=== PATIENT | male | born 1955 | race Caucasian/White ===

== ENCOUNTER 2020-05-26 07:37 | Emergency (ER) | payer MEDICARE, MEDICAID, SELFPAY ==
--- NOTE | ~2020-05-26 | CT_ITS ---
EXAMINATION: CT ABDOMEN AND PELVIS WITHOUT CONTRAST CLINICAL INFORMATION: Abdominal pain with black tarry stools COMPARISON: None TECHNIQUE: Multidetector volumetric imaging was performed from the superior aspect of the liver through the pubic symphysis. Sagittal and coronal reformatted images were obtained on the technologist's workstation. This CT examination was performed using dose optimization techniques as appropriate, variously including the following: *Automated exposure control *Adjustment of mA and/or kV according to patient size (this includes techniques or standardized protocols for targeted exams where dose is matched to indication/reason for exam; i.e. extremities or head) *Use of iterative reconstruction technique DLP: 596 mGy-cm FINDINGS: LUNG BASES: There are bilateral patchy regions of groundglass opacity consistent with pneumonitis. Covid 19 not excluded. No pleural effusion. No pericardial effusion. LIVER, GALLBLADDER, AND BILIARY TREE: There is a 1.4 cm segment 6 hepatic cyst present. No intrahepatic bile duct dilatation. The gallbladder is unremarkable with no evidence of radiopaque gallstones, gallbladder wall thickening, or obvious pericholecystic inflammatory changes. PANCREAS: Unremarkable. SPLEEN: Unremarkable. ADRENAL GLANDS: Unremarkable. KIDNEYS AND URETERS: The kidneys are normal in size, shape, and attenuation. No hydronephrosis, hydroureter, or calculi seen. There is bilateral perinephric stranding. BLADDER: Unremarkable. GASTROINTESTINAL TRACT: No dilated loops of large or small bowel are evident. No free air or free fluid. There is a small hiatal hernia. No pericolonic inflammatory change to suggest colitis. No evidence of acute appendicitis. ABDOMINAL WALL: There is a fat-containing right inguinal hernia. LYMPH NODES: No lymphadenopathy appreciated. VASCULAR: Unremarkable. PELVIC VISCERA: Within the left pelvis there is a 1.1 x 0.9 cm density which appears to have a combination of fat and calcification which could represent a lymph node. It would be very unusual to represent a dermoid tumor in a male. OSSEOUS STRUCTURES: No suspicious destructive bony lesions identified. CT/CT abdomen pelvis wo con IMPRESSION: Bilateral lung base scattered regions of groundglass opacity consistent with pneumonitis. Covid 19 and not excluded. No evidence of ileus or obstruction. No evidence of colitis.
--- NOTE | ~2020-05-26 | XR_ITS ---
EXAMINATION: XR CHEST CLINICAL INFORMATION: Shortness of breath and cough COMPARISON: November 12, 2016 TECHNIQUE: AP portable chest view of the chest was obtained. FINDINGS: There are some bilateral scattered patchy regions of disease present most prominent at the lung bases but also within the right upper lobe. No pneumothorax or pleural effusion. Heart normal size. No evidence of pulmonary edema. XR/XR chest 1V IMPRESSION: Bilateral scattered regions of disease. Findings could relate to atelectasis but more likely pneumonitis.
[2020-05-26 07:51] VITALS: BP 127/78; PULSE 110; RESP 19; TEMP 37; O2SAT 96; BMI 30.9
--- NOTE | 2020-05-26 08:30 | ED_ITS ---
HPI - General Adult General Chief complaint: General Medical Stated complaint: sob Time Seen by Provider: 05/26/20 08:25 Source: patient Mode of arrival: ambulatory Limitations: no limitations History of Present Illness HPI narrative: 64-year-old male came in for evaluation of black stool and generalized weakness. This is a 64-year-old male his symptoms started about week ago with generalized weakness, generalized body ache, coughing, shortness of breath, then symptoms started to improve gradually by taking NSAIDs at home, patient after that started to have nausea, patient also noted to have a black stool bowel movement this morning. Complaining of a mild abdominal discomfort. Patient declined exposure to a sick contact or recent travel Related Data Home Medications Medication Instructions Recorded Confirmed atorvastatin 1 tab PO DAILY 05/26/20 05/26/20 carvedilol 1 tab PO BID 05/26/20 05/26/20 cetirizine 1 tab PO DAILY PRN 05/26/20 05/26/20 gabapentin 1 cap PO BID 05/26/20 05/26/20 Allergies Allergy/AdvReac Type Severity Reaction Status Date / Time No Known Allergies Allergy Verified 05/26/20 07:42 [No Known Allergies*] Review of Systems Review of Systems: All other systems are reviewed and are negative Constitutional: Reports as per HPI and Reports no additional constitutional complaints Eyes: Reports as per HPI and Reports no additional eye complaints Reports system reviewed and no additional complaints, except as documented Cardiovascular: Reports as per HPI and Reports no additional cardiovascular complaints Respiratory: Reports as per HPI and Reports no additional respiratory complaints Gastrointestinal: Reports as per HPI and Reports no additional gastrointestinal complaints Genitourinary: Reports no additional female genitourinary complaints Musculoskeletal: Reports no additional musculoskeletal complaints Skin/Breast: Reports system reviewed and no additional complaints, except as docu Psychiatric: Reports no additional psychiatric complaints Endocrine: Reports no additional endocrine complaints Hematologic/Lymphatic: Reports no additional hematologic/lymphatic complaints Allergic/Immunologic: Reports no additional allergic/immunologic complaints Reports system reviewed and no additional complaints, except as documented and Reports Abnormal speech present [facility] Past Medical History Medical History HTN (hypertension) Myocardial infarct Social History Social History Advance Directives: No Advance Directives Information Provided: Yes Physical Exam Vital Signs: Vital Signs: Last Vital Signs Temp 98.6 F 05/26/20 07:51 Pulse 96 05/26/20 09:37 Resp 15 05/26/20 09:37 BP 121/70 05/26/20 09:37 Pulse Ox 97 05/26/20 09:37 Body Mass Index 30.9 Vital signs have been reviewed as appeared to be correct. Blood pressure normal. Heart rate elevated. Respiration rate normal. Temperature normal. Oxygen saturation normal. Appearance: Alert. Oriented X3. No acute distress. Head: Normal external exam. Normocephalic. Atraumatic. No Monae signs noted. No raccoon eyes noted Eyes: PERRLA. EOMI. Conjunctiva and sclera normal. Eyelids normal. ENT: TM's Normal. Pharynx normal. Uvula midline. Dry mucous membranes. No trismus noted. No drooling noted. No muffled voice noted. Neck: Normal inspection. Neck supple. FROM. No adenopathy. Thyroid Normal. No meningeal signs. No neck mass noted. CVS: Normal heart rate and rhythm. Heart sound normal. No murmurs noted. Pulses normal throughout. Respiratory: No respiratory distress. Painless inspiration. Breath sounds normal. No wheezes/rales/rhonchi noted. Chest nontender. No accessory muscle usage noted or decreased air movement noted. Abdomen: Soft and nontender. Bowel sounds normal in all 4 quadrants. No distention noted. No organomegaly noted. No visible injury noted. Rectal exam: Good tone, no mass, no hemorrhoid, light dark stool no obvious bleed or blood clots guaiac negative. Back: No CVA tenderness. Full range of motion noted. Skin: Skin warm and dry. Normal skin color. Normal skin turgor. No rashes/lesions/lacerations noted. Extremities: No lower extremity edema. Extremities exhibit normal range of motion. Extremities nontender. Neuro: Oriented X 3. No motor deficit. No sensory deficit. Reflexes normal. Course Course Course Narrative: Assessment and plan. 64-year-old male came in for evaluation of generalized body ache and dark color stool. Patient tested positive for COVID which will explain patient's symptoms of dehydration. Patient received IV fluids hydration and felt better, patient will now with better appetite was able to tolerate p.o. intake. Will discharge to follow-up with PCP. Medical Decision Making Lab Data Lab results reviewed: Yes I reviewed the patient's lab results. Result diagrams: 05/26/20 08:58 05/26/20 08:57 Labs: Lab Results 05/26/20 05/26/20 05/26/20 Range/Units 08:57 08:57 08:57 WBC (4.8-10.8) X10*3/uL RBC (4.60-5.80) X10*6/uL Hgb (14.0-18.0) g/dl Hct (42-52) % MCV (80-98) fL MCH (27.0-33.0) pg MCHC (31.0-36.0) g/dl RDW (11.0-16.0) % Plt Count (160-400) X10*3/uL MPV (9.4-12.4) fL Immature Gran % (Auto) (0.0-0.4) % Neut % (Auto) (45-73) % Lymph % (Auto) (20-40) % [place] % (Auto) (2-11) % Eos % (Auto) (0-4) % Baso % (Auto) (0-2) % Lymph # (Auto) (1.2-4.9) X10*3/uL [place] # (Auto) (0.1-1.2) X10*3/uL Eos # (Auto) (0.0-0.4) X10*3/uL Baso # (Auto) (0.0-0.2) X10*3/uL Abs Immat Gran (auto) (0.00-0.03) X10*3/uL Absolute Neuts (auto) (2.0-8.3) X10*3/uL Absolute Nucleated RBC (0.0-0.012) X10*3/uL Nucleated RBC % (auto) (0.0-0.2) /100WBC Sodium 137 (135-145) mmol/L Potassium 3.8 (3.3-5.1) mmol/L Chloride 102 (96-108) mmol/L Carbon Dioxide 24 (22-29) mmol/L Anion Gap 15 (12-20) BUN 22 H (9-16) mg/dL Creatinine 1.13 (0.5-1.4) mg/dL Estim Creat Clear Calc 76.5 Estimated GFR > 60 Random Glucose 86 (60-115) mg/dL Calcium 8.0 L (8.4-10.2) mg/dL Total Bilirubin 0.9 (0.0-1.0) mg/dL Direct Bilirubin 0.4 (0.0-0.5) mg/dL AST 55 H (5-37) U/L ALT 59 H (0-40) U/L Alkaline Phosphatase 40 (39-117) U/L Troponin I High Sens 5.9 (<3.5-35.0) ng/L B-Natriuretic Peptide < 10 (<100) pg/mL Total Protein 6.3 L (6.5-8.0) g/dL Albumin 3.8 (3.5-5.0) g/dL Lipase 27 (8-78) U/L Stool Occult Blood (NEGATIVE) COVID-19 ([facility]) (Negative) COVID-19 Clin Com 05/26/20 05/26/20 05/26/20 Range/Units 08:58 08:59 09:03 WBC 3.7 L (4.8-10.8) X10*3/uL RBC 4.65 (4.60-5.80) X10*6/uL Hgb 14.8 (14.0-18.0) g/dl Hct 43.0 (42-52) % MCV 92.5 (80-98) fL MCH 31.8 (27.0-33.0) pg MCHC 34.4 (31.0-36.0) g/dl RDW 12.5 (11.0-16.0) % Plt Count 170 (160-400) X10*3/uL MPV 10.8 (9.4-12.4) fL Immature Gran % (Auto) 0.5 H (0.0-0.4) % Neut % (Auto) 72.4 (45-73) % Lymph % (Auto) 19.5 L (20-40) % [place] % (Auto) 7.0 (2-11) % Eos % (Auto) 0.3 (0-4) % Baso % (Auto) 0.3 (0-2) % Lymph # (Auto) 0.7 L (1.2-4.9) X10*3/uL [place] # (Auto) 0.3 (0.1-1.2) X10*3/uL Eos # (Auto) 0.0 (0.0-0.4) X10*3/uL Baso # (Auto) 0.0 (0.0-0.2) X10*3/uL Abs Immat Gran (auto) 0.02 (0.00-0.03) X10*3/uL Absolute Neuts (auto) 2.7 (2.0-8.3) X10*3/uL Absolute Nucleated RBC 0.000 (0.0-0.012) X10*3/uL Nucleated RBC % (auto) 0.0 (0.0-0.2) /100WBC Sodium (135-145) mmol/L Potassium (3.3-5.1) mmol/L Chloride (96-108) mmol/L Carbon Dioxide (22-29) mmol/L Anion Gap (12-20) BUN (9-16) mg/dL Creatinine (0.5-1.4) mg/dL Estim Creat Clear Calc Estimated GFR Random Glucose (60-115) mg/dL Calcium (8.4-10.2) mg/dL Total Bilirubin (0.0-1.0) mg/dL Direct Bilirubin (0.0-0.5) mg/dL AST (5-37) U/L ALT (0-40) U/L Alkaline Phosphatase (39-117) U/L Troponin I High Sens (<3.5-35.0) ng/L B-Natriuretic Peptide (<100) pg/mL Total Protein (6.5-8.0) g/dL Albumin (3.5-5.0) g/dL Lipase (8-78) U/L Stool Occult Blood NEGATIVE (NEGATIVE) COVID-19 ([facility]) Positive A (Negative) COVID-19 Clin Com See Note Imaging Data CT of the abdomen and pelvis: Radiologist's impression: Bilateral lung base scattered regions of groundglass opacity consistent with pneumonitis. Covid 19 and not excluded. No evidence of ileus or obstruction. No evidence of colitis. Chest x-ray: Radiologist's impression: Bilateral scattered regions of disease. Findings could relate to atelectasis but more likely pneumonitis. ECG Data Interpretation: Sinus tachycardia at 102, normal axis, normal intervals, no ST-T changes. Discharge Plan Discharge Clinical Impression: Advice given about COVID-19 virus infection, Dehydration Patient Disposition: Home, Self-Care Instructions: Dehydration (ED), COVID-19 (Coronavirus Disease 2019) (ED) Prescriptions: No Action atorvastatin 40 mg tablet 1 tab PO DAILY RF: 0 cetirizine 10 mg tablet 1 tab PO DAILY PRN (Reason: allergies) RF: 0 carvedilol 3.125 mg tablet 1 tab PO BID RF: 0 gabapentin 300 mg capsule 1 cap PO BID RF: 0 Referrals: Mihaela Freedman MD [Primary Care Provider] - 2 days
--- NOTE | 2020-05-26 08:45 | ECG_ITS ---
Test Reason : CHEST PAIN Blood Pressure : / mmHG Vent. Rate : 102 BPM Atrial Rate : 102 BPM P-R Int : 162 ms QRS Dur : 084 ms QT Int : 352 ms P-R-T Axes : 056 015 026 degrees QTc Int : 458 ms Sinus tachycardia Otherwise normal ECG When compared with ECG of 12-NOV-2016 04:48, No significant change was found Referred By: Rito Terrell Electronically Signed By:Lev Montano
[2020-05-26] MEDS: Pantoprazole Sodium 40 MG/10 ML VIAL IVPUSH (09:05)
[2020-05-26] MEDS: ondansetron HCL 4 MG/2 ML VIAL IVPUSH (09:05)
[2020-05-26] MEDS: 0.9 % Sodium Chloride 1,000 ML 999 ML IVCONT ×2 (09:05→09:50)
[2020-05-26 09:11] LABS: MANUAL DIFF FLAG NO
[2020-05-26 09:12] LABS: Basophils Percent Auto 0.3 % (0-2); Eosinophils Percent Auto 0.3 % (0-4); Hemoglobin 14.8 g/dl (14.0-18.0); Imm Gran Abs Auto 0.02 X10*3/uL (0.00-0.03); Imm Gran Pct Auto 0.5 % (0.0-0.4); Lymphocytes Absolute Auto 0.7 X10*3/uL (1.2-4.9); Lymphocytes Percent Auto 19.5 % (20-40); Mean Corpuscular HGB Conc 34.4 g/dl (31.0-36.0); Mean Corpuscular Hemoglobin 31.8 pg (27.0-33.0); Mean Corpuscular Volume 92.5 fL (80-98); Mean Platelet Volume 10.8 fL (9.4-12.4); Monocytes Absolute Auto 0.3 X10*3/uL (0.1-1.2); Neutrophils Absolute Auto 2.7 X10*3/uL (2.0-8.3); Neutrophils Percent Auto 72.4 % (45-73); Platelet Count 170 X10*3/uL (160-400); Red Blood Count 4.65 X10*6/uL (4.60-5.80); Red Cell Distribution Width 12.5 % (11.0-16.0); White Blood Count 3.7 X10*3/uL (4.8-10.8)
[2020-05-26 09:13] LABS: OBS Int Ctl Valid YES; OBS1 NEGATIVE (NEGATIVE)
[2020-05-26 09:25] LABS: COVID-19 Test Positive (Negative); IDNOW Serial# 9DD0AD1C
[2020-05-26 09:37] VITALS: BP 121/70; PULSE 96; RESP 15; O2SAT 97
[2020-05-26 09:40] LABS: Anion Gap 15 (12-20); Blood Urea Nitrogen 22 mg/dL (9-16); Carbon Dioxide 24 mmol/L (22-29); Chloride 102 mmol/L (96-108); Creatinine Clr Calc Pharmacy 76.5; Estimated Glomerular Filt Rate > 60; Glucose Random 86 mg/dL (60-115); Potassium 3.8 mmol/L (3.3-5.1); Sodium 137 mmol/L (135-145)
[2020-05-26 09:42] LABS: Alanine Aminotransferase 59 U/L (0-40); Albumin Level 3.8 g/dL (3.5-5.0); Alkaline Phosphatase 40 U/L (39-117); Aspartate Amino Transferase 55 U/L (5-37); Bilirubin Direct 0.4 mg/dL (0.0-0.5); Bilirubin Total 0.9 mg/dL (0.0-1.0); Lipase 27 U/L (8-78); Total Protein 6.3 g/dL (6.5-8.0)
[2020-05-26 09:49] LABS: Troponin-I High Sensitivity 5.9 ng/L (<3.5-35.0)
[2020-05-26 09:54] LABS: B Type Natriuretic Peptide < 10 pg/mL (<100)
[2020-05-26 12:24] VITALS: BP 113/63; PULSE 103; RESP 12
--- NOTE | 2020-05-26 12:41 | PC.NURSE ---
pt tolerating po. no issues, reports general malaise. instructed on how to care for self at home.
== END 2020-05-26 12:42 | disposition home or self-care (01) ==
PROVIDERS: Emergency Provider Emergency Medicine; PCP Family Medicine
DX: U07.1 COVID-19 (principal); E86.0 Dehydration; R06.02 Shortness of breath; M79.10 Myalgia, unspecified site; I10 Essential (primary) hypertension; Z79.899 Other long term (current) drug therapy
CPT/HCPCS: 36415; 71045; 74176; 80048; 80076; 82272; 83690; 83880; 84484; 85025; 87635; 93005; 96365; 96375; 99284; J2405

== ENCOUNTER 2020-06-14 10:27 | Outpatient (REF) | payer SELFPAY | END 2020-06-14 10:28 | disposition home or self-care (01) | LOC: HO.MMNH1L 10:27 | PROVIDERS: Visit Provider Family Medicine | DX: Z13.89 Encounter for screening for other disorder (principal) ==

== ENCOUNTER 2022-05-09 10:06 | Outpatient (REF) | payer MEDICARE, MEDICAID, SELFPAY ==
[2022-05-09 10:16] LABS: MANUAL DIFF FLAG NO
[2022-05-09 10:54] LABS: Basophils Absolute Auto 0.1 X10*3/uL (0.0-0.2); Basophils Percent Auto 0.9 % (0-2); Eosinophils Absolute Auto 0.4 X10*3/uL (0.0-0.4); Eosinophils Percent Auto 5.3 % (0-4); Hematocrit 48.5 % (42.0-52.0); Hemoglobin 16.6 g/dl (14.0-18.0); Imm Gran Abs Auto 0.03 X10*3/uL (0.00-0.03); Imm Gran Pct Auto 0.4 % (0.0-0.4); Lymphocytes Absolute Auto 2.4 X10*3/uL (1.2-4.9); Lymphocytes Percent Auto 32.1 % (20-40); Mean Corpuscular HGB Conc 34.2 g/dl (31.0-36.0); Mean Corpuscular Hemoglobin 32.9 pg (27.0-33.0); Mean Platelet Volume 11.2 fL (9.4-12.4); Monocytes Absolute Auto 0.7 X10*3/uL (0.1-1.2); Monocytes Percent Auto 9.6 % (2-11); Neutrophils Absolute Auto 3.9 x10*3/uL (2.0-8.3); Neutrophils Percent Auto 51.7 % (45-73); Platelet Count 246 X10*3/uL (160-400); Red Blood Count 5.05 X10*6/uL (4.60-5.80); Red Cell Distribution Width 12.2 % (11.0-16.0); White Blood Count 7.6 X10*3/uL (4.8-10.8)
[2022-05-09 11:18] LABS: Alanine Aminotransferase 34 U/L (0-40); Albumin Level 4.2 g/dL (3.5-5.0); Alkaline Phosphatase 63 U/L (39-117); Anion Gap 14 (12-20); Aspartate Amino Transferase 23 U/L (5-37); Blood Urea Nitrogen 12 mg/dL (9-16); Calcium 9.2 mg/dL (8.4-10.2); Carbon Dioxide 26 mmol/L (22-29); Chloride 107 mmol/L (96-108); Cholesterol 152 mg/dL; Estimated Glomerular Filt Rate 58; Glucose Random 93 mg/dL (60-115); HDL Cholesterol 40 mg/dL; LDL Cholesterol Calculated 81 mg/dl; Potassium 4.7 mmol/L (3.3-5.1); Sodium 142 mmol/L (135-145); Total Protein 6.6 g/dL (6.5-8.0); Triglycerides 157 mg/dL
[2022-05-09 11:34] LABS: PSA,Total (Free>4and<10) 1.21 ng/mL (0.00-4.00); TSH reflex Free T4 3.26 uIU/mL (0.32-4.0)
== END 2022-05-09 10:07 | disposition home or self-care (01) ==
LOC: HO.LAB 10:06
PROVIDERS: PCP Nurse Practitioner Family; Visit Provider Nurse Practitioner Family
DX: Z13.0 Encounter for screening for diseases of the blood and blood-forming organs and certain disorders involving the immune mechanism (principal); Z13.220 Encounter for screening for lipoid disorders; Z13.29 Encounter for screening for other suspected endocrine disorder; Z12.5 Encounter for screening for malignant neoplasm of prostate
CPT/HCPCS: 36415; 80053; 80061; 84153; 84443; 85025

== ENCOUNTER 2022-08-05 14:21 | Emergency (ER) | payer MEDICARE, MEDICAID, SELFPAY ==
[2022-08-05 14:29] VITALS: BP 60/42; BP 99/56; PULSE 109; PULSE 200; RESP 20; TEMP 36.6; O2SAT 96; BMI 32.4
[2022-08-05 14:39] VITALS: PULSE 109
[2022-08-05 15:06] LABS: MANUAL DIFF FLAG NO
[2022-08-05 15:07] LABS: Basophils Absolute Auto 0.1 X10*3/uL (0.0-0.2); Basophils Percent Auto 0.6 % (0-2); Eosinophils Absolute Auto 0.3 X10*3/uL (0.0-0.4); Eosinophils Percent Auto 3.8 % (0-4); Hematocrit 43.6 % (42.0-52.0); Hemoglobin 14.9 g/dl (14.0-18.0); Imm Gran Abs Auto 0.03 X10*3/uL (0.00-0.03); Imm Gran Pct Auto 0.4 % (0.0-0.4); Lymphocytes Percent Auto 25.3 % (20-40); Mean Corpuscular HGB Conc 34.2 g/dl (31.0-36.0); Mean Corpuscular Hemoglobin 32.8 pg (27.0-33.0); Mean Platelet Volume 10.2 fL (9.4-12.4); Monocytes Absolute Auto 0.8 X10*3/uL (0.1-1.2); Monocytes Percent Auto 9.9 % (2-11); Neutrophils Absolute Auto 4.8 x10*3/uL (2.0-8.3); Platelet Count 222 X10*3/uL (160-400); Red Blood Count 4.54 X10*6/uL (4.60-5.80); Red Cell Distribution Width 12.2 % (11.0-16.0); White Blood Count 8.1 X10*3/uL (4.8-10.8)
[2022-08-05 15:14] LABS: Prothrombin Time 11.5 SEC (10.0-13.1)
[2022-08-05 15:16] VITALS: BP 92/61; PULSE 103; RESP 18
[2022-08-05 15:17] LABS: Partial Thromboplastin Time 31.3 SEC (26.0-36.4)
--- NOTE | 2022-08-05 15:20 | PC.NURSE ---
pt a&ox3. sinus tachy on tele with pacer pads in place. respirations equal and unlabored. skin warm pink and dry. denies pain at this time.
[2022-08-05 15:35] LABS: Alanine Aminotransferase 22 U/L (0-40); Albumin Level 3.8 g/dL (3.5-5.0); Alkaline Phosphatase 44 U/L (39-117); Anion Gap 14 (12-20); Aspartate Amino Transferase 22 U/L (5-37); Blood Urea Nitrogen 19 mg/dL (9-16); Calcium 9.4 mg/dL (8.4-10.2); Carbon Dioxide 24 mmol/L (22-29); Chloride 111 mmol/L (96-108); Estimated Glomerular Filt Rate > 60; Glucose Random 97 mg/dL (60-115); Potassium 4.3 mmol/L (3.3-5.1); Sodium 145 mmol/L (135-145); Total Protein 6.4 g/dL (6.5-8.0)
--- NOTE | 2022-08-05 16:15 | ED.ARRPALP ---
HPI - Arrhythmia/Palpitations General Chief Complaint: Arrhythmia/Palpitations Stated Complaint: high HR per ems Time Seen by Provider: 08/05/22 14:37 Source: patient and EMS Mode of arrival: EMS Limitations: no limitations History of Present Illness HPI narrative: 66-year-old male who presents emergency department for evaluation of SVT and hypotension. The patient was about to eat at a [place] restaurant when he felt his heart was beating rapidly. He then felt lightheaded, dizzy and became diaphoretic. States that he had an indigestion like sensation but no chest pain, neck pain, jaw pain, arm pain or back pain. When the paramedics arrived on the scene, patient's systolic blood pressure was 80. His heart rate was 200. Patient was found to be in SVT. Patient was given adenosine 6 mg IV and 12 mg IV with no response. Patient's systolic blood pressure then dropped to 60 the patient became lethargic. Patient was given Versed 2 mg IV and cardioverted with 120 joules of energy. The patient did convert to a sinus rhythm with improvement of his blood pressure. At the time of evaluation in the emergency department the patient had no complaints. He states that this is the 2nd time he has had to be cardioverted when he has an SVT. He does not have a stna but he does take carvedilol he does not know what other medications he is taking. He states that he has a new PCP that he is going to see next week. Related Data Home Medications Medication Instructions Recorded Confirmed gabapentin 300 mg capsule 1 cap PO BID 05/26/20 05/26/20 Previous Rx's Medication Instructions Recorded atorvastatin 40 mg tablet 40 mg PO DAILY #30 tabs 05/11/22 carvedilol 3.125 mg tablet 3.125 mg PO BID #60 tabs 05/11/22 cetirizine 10 mg tablet 10 mg PO DAILY PRN allergies #30 05/11/22 tabs naproxen 500 mg tablet 500 mg PO BID PRN pain #30 tabs 07/18/22 Allergies Allergy/AdvReac Type Severity Reaction Status Date / Time No Known Allergies Allergy Verified 08/05/22 14:38 [No Known Allergies*] Review of Systems Review of Systems: Yes all other systems are reviewed and are negative PMFSH Past Medical History [facility] Narrative: Past medical history: Hypertension, SVT. Social history: He smokes 1 pack of cigarettes per day x5 years. He denies alcohol use. He denies drug use. Medical History Anxiety and depression Brain bleed HTN (hypertension) Myocardial infarct Prostate cancer Surgical History No pertinent past surgical history S/P lumpectomy, right breast Family History Family History Mother No problems noted. Father No problems noted. Social History Social History Alcohol intake: never Patient Tobacco Use Status: Current everyday Tobacco user Tobacco use type: Cigarette Cigarette Packs Per Day: 1 Smoked in Last 30 Days: Yes e-Cigarette/Vaping Use: Never Used Second Hand Smoke Exposure: No Use of substances other than those prescribed or required for medical reasons: No Advance Directives: No Advance Directives Information Provided: No Physical Exam Vital Signs: Vital Signs: Last Vital Signs Temp 97.8 F 08/05/22 14:29 Pulse 103 H 08/05/22 15:16 Resp 18 08/05/22 15:16 BP 92/61 08/05/22 15:16 Pulse Ox 96 08/05/22 14:29 O2 Del Method Room Air 08/05/22 14:29 BMI result Body Mass Index 32.4 Const: General: cooperative and no acute distress Orientation/consciousness: oriented to person and oriented to place Limitations: no limitations HEENT: Head: Yes normal to inspection, Yes normocephalic and Yes atraumatic Ears: external ears normal General nose exam: Normal external nose present Face and sinus: Yes normal facial exam Mouth: Normal oral and palatal mucosa present Throat: Yes posterior oropharynx normal Eyes: General: appearance normal, both eyes and all related structures Neck: Neck: Yes normal visual inspection, Yes no lymphadenopathy, Yes trachea midline and Yes supple Chest: Chest palpation & inspection: normal inspection of the chest and normal palpation of entire chest wall Resp: Effort & Inspection: normal respiratory effort and able to speak in complete sentences Auscultation: clear to auscultation bilaterally Cardio: Rate: regular rate Rhythm: regular rhythm Heart sounds: S1 normal heart sound present, S2 normal heart sound present and no murmurs GI: Inspection: Yes normal to inspection Palpation (GI): Soft to palpation, nontender and no guarding Auscultation: normal bowel sounds : General: Yes no CVA tenderness Back/Spine/Pelvis: Back: no CVA tenderness Skin: General skin exam: no rashes or lesions noted Neuro: General: oriented to person and oriented to place Cognition (Neuro): normal cognition Motor exam (neuro): 5/5 motor strength present throughout Extrem: General: Yes normal to inspection Psych: Appearance: grossly normal Speech and movement: Normal speech and movement present Affect: normal affect Attitude: cooperative Medical Decision Making Medical Decision Making MDM Narrative: 66-year-old male with history of SVT and hypertension you had sudden onset of SVT associated with lightheadedness, dizziness, diaphoresis. Patient was found to be in SVT by the paramedics. Patient was given adenosine 6 mg IV and 12 mg IV with no effect. Patient then became hypotensive and was cardioverted with 120 joules of energy. Patient was then brought to the emergency department. At the time of evaluation he had no symptoms and was feeling significantly better. Patient's physical examination was unremarkable. I ordered a CBC, CMP, troponin, coags. 1638: Laboratory evaluation was unremarkable, high sensitive troponin I was detectable but not elevated at 3.7. Patient was observed in the emergency department for several hours with no recurrence of his SVT. Patient advised to continue taking his medications as prescribed You will be referred to our on-call stna, Dr. Montano for follow-up and possible referral to electric stna for ablation. Differential Diagnosis Differential diagnosis includes was not limited to supraventricular tachycardia, electrolyte abnormality, myocardial infarction, cardiac ischemia, Admission/Observation Consideration of admission/observation: Escalation of care including admission/observation considered Lab Data MDM Lab Attestation statement: I reviewed the patient's lab results. My interpretation of patient's laboratory of evaluation is as follows: CBC was normal. Coags were normal. CMP was normal. High sensitive troponin I was detectable but not elevated at 3.7. 08/05/22 15:01 08/05/22 15:01 Labs: Lab Results 08/05/22 08/05/22 08/05/22 Range/Units 15: 15: 15:01 WBC 8.1 (4.8-10.8) X10*3/uL RBC 4.54 L (4.60-5.80) X10*6/uL Hgb 14.9 (14.0-18.0) g/dl Hct 43.6 (42.0-52.0) % MCV 96.0 (80.0-98.0) fL MCH 32.8 (27.0-33.0) pg MCHC 34.2 (31.0-36.0) g/dl RDW 12.2 (11.0-16.0) % Plt Count 222 (160-400) X10*3/uL MPV 10.2 (9.4-12.4) fL Immature Gran % (Auto) 0.4 (0.0-0.4) % Neut % (Auto) 60.0 (45-73) % Lymph % (Auto) 25.3 (20-40) % [place] % (Auto) 9.9 (2-11) % Eos % (Auto) 3.8 (0-4) % Baso % (Auto) 0.6 (0-2) % Lymph # (Auto) 2.0 (1.2-4.9) X10*3/uL [place] # (Auto) 0.8 (0.1-1.2) X10*3/uL Eos # (Auto) 0.3 (0.0-0.4) X10*3/uL Baso # (Auto) 0.1 (0.0-0.2) X10*3/uL Abs Immat Gran (auto) 0.03 (0.00-0.03) X10*3/uL Absolute Neuts (auto) 4.8 (2.0-8.3) x10*3/uL Absolute Nucleated RBC 0.000 (0.0-0.012) X10*3/uL Nucleated RBC % (auto) 0.0 (0.0-0.2) /100WBC PT 11.5 (10.0-13.1) SEC INR 1.0 (0.9-1.1) APTT 31.3 (26.0-36.4) SEC Sodium 145 (135-145) mmol/L Potassium 4.3 (3.3-5.1) mmol/L Chloride 111 H (96-108) mmol/L Carbon Dioxide 24 (22-29) mmol/L Anion Gap 14 (12-20) BUN 19 H (9-16) mg/dL Creatinine 1.16 (0.5-1.4) mg/dL Estim Creat Clear Calc 74.0 Estimated GFR > 60 Random Glucose 97 (60-115) mg/dL Calcium 9.4 (8.4-10.2) mg/dL Total Bilirubin 1.0 (0.0-1.0) mg/dL AST 22 (5-37) U/L ALT 22 (0-40) U/L Alkaline Phosphatase 44 (39-117) U/L Troponin I High Sens (<3.5-35.0) ng/L Total Protein 6.4 L (6.5-8.0) g/dL Albumin 3.8 (3.5-5.0) g/dL 08/05/22 Range/Units 15:01 WBC (4.8-10.8) X10*3/uL RBC (4.60-5.80) X10*6/uL Hgb (14.0-18.0) g/dl Hct (42.0-52.0) % MCV (80.0-98.0) fL MCH (27.0-33.0) pg MCHC (31.0-36.0) g/dl RDW (11.0-16.0) % Plt Count (160-400) X10*3/uL MPV (9.4-12.4) fL Immature Gran % (Auto) (0.0-0.4) % Neut % (Auto) (45-73) % Lymph % (Auto) (20-40) % [place] % (Auto) (2-11) % Eos % (Auto) (0-4) % Baso % (Auto) (0-2) % Lymph # (Auto) (1.2-4.9) X10*3/uL [place] # (Auto) (0.1-1.2) X10*3/uL Eos # (Auto) (0.0-0.4) X10*3/uL Baso # (Auto) (0.0-0.2) X10*3/uL Abs Immat Gran (auto) (0.00-0.03) X10*3/uL Absolute Neuts (auto) (2.0-8.3) x10*3/uL Absolute Nucleated RBC (0.0-0.012) X10*3/uL Nucleated RBC % (auto) (0.0-0.2) /100WBC PT (10.0-13.1) SEC INR (0.9-1.1) APTT (26.0-36.4) SEC Sodium (135-145) mmol/L Potassium (3.3-5.1) mmol/L Chloride (96-108) mmol/L Carbon Dioxide (22-29) mmol/L Anion Gap (12-20) BUN (9-16) mg/dL Creatinine (0.5-1.4) mg/dL Estim Creat Clear Calc Estimated GFR Random Glucose (60-115) mg/dL Calcium (8.4-10.2) mg/dL Total Bilirubin (0.0-1.0) mg/dL AST (5-37) U/L ALT (0-40) U/L Alkaline Phosphatase (39-117) U/L Troponin I High Sens 3.7 (<3.5-35.0) ng/L Total Protein (6.5-8.0) g/dL Albumin (3.5-5.0) g/dL Independent Interpretation I performed an independent interpretation of an: EKG Interpretation: My independent interpretation of patient's 12 EKG done at 1444 is as follows: Sinus tachycardia with rate of 101, normal AR interval, QRS duration QTC interval, no ST segment elevation, no ST segment depression, no T-wave abnormalities, occasional PVC, no PACs. 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 Independent Historian Clinical information obtained from an independent historian. History obtained from or confirmed by: Other (Girlfriend) Chronic Conditions Patient?s care impacted by: Hypertension Discharge Plan Discharge Clinical Impression: Paroxysmal SVT (supraventricular tachycardia) Instructions: Supraventricular Tachycardia (ED) Additional Instructions: You had a supraventricular tachycardia (SVT) wear your heart rate was going as fast as 200 beats per minute. The paramedics gave you adenosine 6 mg and then 12 mg IV and this did not change her heart rate. Your blood pressure then became very low and the paramedics cardioverted (shocked) you with 120 joules of energy and you converted to a normal sinus rhythm Continue taking your medications as prescribed Follow-up with our on-call stna, Dr. Montano for and evaluate and for referral to an safety analyst a be able to find the extra wire and ablate/burn it to stop you from having further episodes of SVT. Follow-up with your doctor in 2 days. Please return to the emergency department if your symptoms get worse or if you develop any symptoms that are concerning to you. Prescriptions: No Action atorvastatin 40 mg tablet 40 mg PO DAILY Qty: 30 3RF cetirizine 10 mg tablet 10 mg PO DAILY PRN (Reason: allergies) Qty: 30 3RF carvedilol 3.125 mg tablet 3.125 mg PO BID Qty: 60 3RF naproxen 500 mg tablet 500 mg PO BID PRN (Reason: pain) Qty: 30 0RF gabapentin 300 mg capsule 1 cap PO BID Referrals: Lev Montano MD [Physician] - 2 weeks (SVT with rate of 200, low BP, no response with adenosine, cardioverted 120 joint is by paramedics prior to coming to the ED, needs follow-up.)
[2022-08-05 16:39] VITALS: BP 102/70; PULSE 98
== END 2022-08-05 16:41 | disposition home or self-care (01) ==
PROVIDERS: Emergency Provider Emergency Medicine Emergency Medical Services
DX: I47.1 Supraventricular tachycardia (principal); I10 Essential (primary) hypertension; F41.8 Other specified anxiety disorders; I25.2 Old myocardial infarction; C61 Malignant neoplasm of prostate; F17.210 Nicotine dependence, cigarettes, uncomplicated
CPT/HCPCS: 36415; 80053; 84484; 85025; 85610; 85730; 93005; 99284; 99285

== ENCOUNTER 2022-08-16 09:48 | Outpatient (AMB) | payer MEDICARE, MEDICAID, SELFPAY ==
[2022-08-16 09:58] VITALS: BP 96/58; PULSE 92; BMI 30.9
--- NOTE | 2022-08-16 09:58 | A.OFFVIS_ITS ---
Intake Vital Signs 08/16/22 09:58 Height 5 ft 10 in Weight 215 lb 9.793 oz BMI 30.9 BP 96/58 L Blood Pressure Location Lt brachial Position Sitting Pulse 92 Intake Visit Reasons: supraventricular tachycardia Intake Note: NPV Safety And Health Manager Required: No Accompanied by: Daughter Allergies No Known Allergies [No Known Allergies*] Allergy (Verified 08/16/22 09:58) Medication List - Last Reconciled 08/16/22 by Maurilio Caballero MD atorvastatin 40 mg PO DAILY carvedilol 3.125 mg PO BID cetirizine 10 mg PO DAILY PRN gabapentin 300 mg PO BID naproxen 500 mg PO BID PRN HPI HPI Comments History of Present Illness Details This is a cardiology consultation regarding SVT. It seems that he has a long history of SVT but has not been formally treated. According to patient, he has had this for many years. Most recently few days ago. He was at a restaurant when all of a sudden he was having palpitations, lightheadedness, diaphoresis along with some indigestion like sensations. Subsequently, found to be in SVT. Brought to the ER and then got adenosine 6 mg as well as 12 mg with no response. Then got cardioversion with 120 joules. It seems that he converted to sinus rhythm. In the past, he has had other episodes but difficult to say how many as he has can awake. At least 1 prior cardioversion per patient. He denies any history of coronary disease, myocardial infarction or cardiomyopathy. [facility] Medical History (Updated 08/10/22 @ 12:57 by JAYLON Cui) Anxiety and depression Brain bleed HTN (hypertension) Myocardial infarct Prostate cancer Surgical History (Updated 08/16/22 @ 10:01 by Mckayla Henderson) S/P lumpectomy, right breast Family History Mother No problems noted. Father No problems noted. Social History (Updated 08/16/22 @ 10:02 by Mckayla Henderson) Housing: House (Shared living) Alcohol intake: never Patient Tobacco Use Status: Current everyday Tobacco user Tobacco use type: Cigarette Cigarette Packs Per Day: 1.5 Cigarettes Per Day: 30 Years Smoked: 53 e-Cigarette/Vaping Use: Never Used Second Hand Smoke Exposure: No service: No Current occupational status: retired Cognitive needs: No Hearing needs: No Vision needs: Yes Review of Systems Const Denies chills, Denies daytime sleepiness, Denies fatigue, Denies fever(s), Denies frequent falls, Denies night sweats, Denies snoring, Denies weakness, Denies weight gain and Denies weight loss Eyes Denies loss of vision ENT Denies dizziness and Denies hearing loss Card Denies chest pain, Denies chest pain with activity, Denies syncope, Denies rapid heart rate, Denies edema, Denies claudication, Denies leg edema, Denies lightheadedness, Denies palpitations, Denies dyspnea, Denies dyspnea on exertion and Denies orthopnea Resp Denies cough, Denies excessive phlegm production, Denies dyspnea, Denies dyspnea on exertion, Denies snoring and Denies wheezing GI Denies abdominal pain, Denies hematochezia, Denies change in bowel habits, Denies change in stool character, Denies heartburn, Denies nausea and Denies vomiting Denies hematuria, Denies dysuria and Denies urinary frequency Musc Denies arthralgias, Denies muscle weakness, Denies numbness and Denies tingling Skin/Breast Denies nail changes and Denies rash Neuro Denies Abnormal speech present, Denies dizziness, Denies syncope, Denies frequent falls, Denies loss of vision, Denies memory loss, Denies numbness, Denies tingling and Denies weakness Psych Denies depression and Denies memory loss Endo Denies fatigue and Denies palpitations Aller/Immun Denies wheezing Physical Exam Vital Signs: Last Vital Signs Pulse 92 08/16/22 09:58 BP 96/58 L 08/16/22 09:58 BMI result Body Mass Index 30.9 Const General: comfortable and no acute distress Orientation/consciousness: patient oriented x3 HEENT Other: Unremarkable Head: Yes normal to inspection Neck Neck: Yes normal visual inspection Chest Chest palpation & inspection: normal inspection of the chest Resp Auscultation: clear to auscultation bilaterally Cardio Palpation: normal PMI Heart sounds: S1 normal heart sound present, S2 normal heart sound present, no gallops, no murmurs and no rubs GI Palpation (GI): Soft to palpation Back/Spine/Pelvis Other: unremarkable Skin General skin exam: no rashes or lesions noted Neuro General: patient oriented x3 Speech: No Abnormal speech present Extrem General: Yes normal to inspection Psych Mental Status: mental status grossly normal Assessment & Plan Assessment & Plan (1) SVT (supraventricular tachycardia): Code(s): I47.1 - Supraventricular tachycardia Plan In the recent EKG, underlying rhythm is sinus tachycardia 101/Min; isolated PVC. Cannot find any EKGs at actually show SVT. However, patient has brought an EKG strip which is probably from the EMS, that shows a narrow complex tachycardia at a rate of 198/Min. 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 Pathophysiology of the same discussed with patient and daughter. He is on small dose of carvedilol on blood pressure is already low. Hence we will switch it to metoprolol. Otherwise, can get comprehensive workup including echocardiogram stress test and also do a 30 day monitor. We will refer him for EP evaluation/a blation. Discussed about that with patient and he seems to be interested. We will plan on following up in a few weeks time. Orders: Orders CA echo stress exercise Today I47.1 - Supraventricular tachycardia CA echo transthoracic complete Today I47.1 - Supraventricular tachycardia ECG 30 day event monitor Today I47.1 - Supraventricular tachycardia Medications: New metoprolol tartrate 25 mg PO BID 180 tabs 3RF 90 days I47.1 - Supraventricular tachycardia Discontinued carvedilol Discontinued Reason: Doctor's Order 3.125 mg PO BID 60 tabs 3RF Coding Level of Care Code New Pt Level 4 (01503) Diagnoses SVT (supraventricular tachycardia) I47.1
== END 2022-08-16 10:49 | disposition home or self-care (01) ==
PROVIDERS: Visit Provider Internal Medicine
DX: I47.1 Supraventricular tachycardia (principal)
CPT/HCPCS: 99204

== ENCOUNTER → 2022-08-16 09:48 | Outpatient (BNVA) | payer MEDICARE, MEDICAID, SELFPAY | PROVIDERS: Visit Provider Internal Medicine | DX: I47.1 Supraventricular tachycardia (principal) | CPT/HCPCS: 99202 ==

== ENCOUNTER 2022-08-28 13:13 | Outpatient (REF) | payer MEDICARE, MEDICAID, SELFPAY ==
--- NOTE | ~2022-08-28 | US_ITS ---
EXAMINATION: US SCROTUM CLINICAL INFORMATION: Other specified disorders of the male genital organs. COMPARISON: None available. TECHNIQUE: A sonogram of the scrotum was performed assessing de la cruz-scale appearance and color Doppler flow. Spectral Doppler analysis of the arterial and venous flow were performed in the testes bilaterally. FINDINGS: RIGHT: Right testicle measures 3.7 x 1.9 x 2.6 cm, volume 9.95 mL. No focal testicular parenchymal lesions are visualized. Spectral Doppler analysis of the arterial and venous flow is normal in the right testis. Incidentally noted right epididymal appendix. Tubular ectasia of the rete testes. Incidentally noted 6 mm right testicular cyst. Large spermatocele with multiple epididymal cysts. Echogenic foci in the epididymal tail with comet tail artifact suggestive of epididymal microlithiasis or possibly artifact secondary to epididymal cystic change. No right hydrocele or varicocele is seen. Right epididymal Doppler flow is normal. LEFT: Left testicle measures 2.9 x 2.2 x 3.5 cm, volume 11.7 mL. No focal testicular parenchymal lesions are visualized. Spectral Doppler analysis of the arterial and venous flow is normal in the left testis. Left epididymal head is normal in size. No left hydrocele or varicocele is seen. Large spermatocele. Tubular ectasia of the rete testes. Left epididymal Doppler flow is normal. US/US scrotum IMPRESSION: 1. 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 2. Incidentally noted 6 mm right testicular cyst. 3. Incidentally noted right epididymal appendix. 4. Echogenic foci in the right epididymal tail with comet tail artifact suggestive of epididymal microlithiasis or possibly artifact secondary to epididymal cystic change.
== END 2022-08-28 13:14 | disposition home or self-care (01) ==
LOC: HO.US 13:13
PROVIDERS: Visit Provider Nurse Practitioner Family
DX: N50.89 Other specified disorders of the male genital organs (principal)
CPT/HCPCS: 76870

== ENCOUNTER → 2022-09-26 09:28 | Outpatient (REF) | payer MEDICARE, MEDICAID, SELFPAY ==
--- NOTE | 2022-09-26 09:33 | HM_ITS ---
* Total monitoring time 30 days. Wear time 8 days. * Underlying rhythm is sinus. Average ventricular rate 69/Min. Range 51 to 136/Min. * No evidence of atrial fibrillation. * Rare supraventricular and ventricular ectopy. * No symptoms mentioned in diary. MTDD
--- NOTE | 2022-09-26 09:33 | CA_ITS ---
Transthoracic Echocardiogram Patient (Last, First, Middle): Wolfgang Canales, Gender: Male Date of : 1955 Age: 67 Procedure Date: 09/26/2022 Procedure Type: Transthoracic Echocardiogram Location: OP Height: 177.8 cm Weight: 98.01 kg BSA: 2.16 m2 Heart Rate: 81 bpm BP: 95 / 60 mmHg Front End Alignment Specialist: LIZA Referring MD: Maurilio Caballero MD Symptoms: I47.1 - Supraventricular tachycardia Study Quality: Fair ECG Rhythm: Sinus Conclusions: - The left ventricular systolic function is normal. The calculated ejection fraction is 60% by biplane method. - No obvious valvular pathology seen on this study. Findings Left Ventricle Normal left ventricular cavity size. The left ventricular systolic function is normal. The calculated ejection fraction is 60% by biplane method. There is no evidence of regional wall motion abnormalities. Diastolic function is normal for age. There is mild septal asymmetric hypertrophy. LV peak GLS 19.6%. Right Ventricle Normal right ventricular cavity size and systolic function. Atria Both atria are normal in size. Aortic Valve There is a normal trileaflet aortic valve. There is mild calcification of the aortic valve. There is no aortic valve stenosis. There is no aortic valve regurgitation. Mitral Valve The mitral valve appears normal. There is trace mitral valve regurgitation. There is no mitral valve stenosis. Pulmonic Valve The pulmonic valve is likely normal. Tricuspid Valve There is mild tricuspid valve regurgitation. There is no evidence of pulmonary hypertension. Great Vessels The asc aorta is normal in size. Venous The inferior vena cava is normal in size and collapses greater than 50% with inspiration. Pericardium/Pleural There is no evidence of pericardial effusion. Prior Study Comparison No prior study available for comparison. Recommendations, Care & Conclusions No obvious valvular pathology seen on this study. Measurements 2D Linear Measurements IVSd: 1.18 0.6-0.9/0.6-1.0 cm LVIDd: 4.12 3.9-5.3/4.2-5.9 cm LVIDd Index: 1.91 2.4-3.2/2.2-3.1 cm/m2 LVIDs: 2.75 2.0-3.6 cm LVPWd: 0.77 0.7-1.1 cm LA Diam: 3.50 2.7-3.8/3.0-4.0 cm LAIDs Index: 1.62 1.5-2.3 cm/m2 LV Mass: 159.29 67-162/88-224 g LV Mass Index: 73.74 43-95/49-115 g/m2 LVOT Diam: 2.00 3.0+(-)1.3 cm 2D Systolic Function EF 4C: 58.90 >55% EF 2C: 60.30 >55% EF BiP: 60.00 >55% Mitral Valve MV Pk E: 0.73 MV PK A: 0.91 MV Decel Time: 290.00 E/A: 0.80 E'Lateral: 7.94 E'Medial: 6.74 E/E' Med: 10.90 E/E' Lat: 9.20 PHT: 85.00 MVA PHT: 2.59 Decel [place]: 2.53 Aortic Valve AoV Pk Irwin: 1.35 AoV Mn Irwin: 0.97 AoV VTI: 0.26 AoV Pk Grad: 7.00 Aov Mn Grad: 4.00 ELLA Cont.VTI: 2.45 LVOT LVOT Pk Irwin: 1.06 LVOT Mn [place]win: 0.70 LVOT VTI: 0.21 LVOT Pk Grad: 4.00 LVOT Mn Grad: 2.00 LVOT Diam: 2.00 LVOT Area: 3.14 Diastolic Function MV Pk E: 0.73 MV Pk A: 0.91 E/A: 0.80 E'Medial: 6.74 E/E' Med: 10.90 E' Laterial: 7.94 E/E' Lat: 9.20 Right Ventricle TAPSE (mm): 25.80 TVS' Irwin: 15.00 Tricuspid Valve TR Pk Irwin: 2.16 TR Pk Grad: 19.00 RA Press: 3.00 RVSP: 22.00 Great Vessels Aorta Sinus of Valsalva: 4.00 2.0-3.5 cm Ao Asc: 3.60 2.1-3.4 cm Pulmonary Valve PV Pk Irwin: 1.03 Peak PV Grad: 4.00 Updated in Other Vendor System with Status of Final Maurilio Caballero MD electronically signed on 09/27/2022 11:49:38 AM with status of Final
== END ==
LOC: HO.CARD 09:28
PROVIDERS: Visit Provider Internal Medicine
DX: I47.1 Supraventricular tachycardia (principal)
CPT/HCPCS: 93270; 93306; 93356

== ENCOUNTER → 2022-09-26 09:33 | Outpatient (BNV) | payer MEDICARE, MEDICAID, SELFPAY | PROVIDERS: Visit Provider Internal Medicine | DX: I47.1 Supraventricular tachycardia (principal) | CPT/HCPCS: 93272; 93306 ==

== ENCOUNTER → 2022-11-06 10:34 | Outpatient (REF) | payer MEDICARE, MEDICAID, SELFPAY ==
--- NOTE | 2022-11-06 10:37 | CA_ITS ---
Acquisition Time: 2022-11-06 10:41:26 Total Exercise Time: 00:03:00 Test Indications: Abnormal ECG Medications: ATORVASTATIN CARVEDILOL CETIRIZINE GABAPENTIN NAPROXEN Protocol: HARITHA Max HR: 133 BPM 87% of Pred: 152 BPM Max BP: 134/070 mmHG Max Work Load: 4.6 METS Exerise stress test exercise 3 min of Haritha protocol achieving 87% MPHR, with chest discomfort, with moderate SOB, with isolated PVCs, with drop in BP at peak exercise from 134/70 to 118/54, in recovery 110/68, without EKG changes. Breathing returned to normal with rest, Echo images obtained at rest and immedately post peak exercise. Definity contrast used. Test reviewed with Dr. Caballero. Referred By: Maurilio Caballero Overread By: Mer Santacruz
== END ==
LOC: HO.CARD 10:34
PROVIDERS: Visit Provider Internal Medicine
DX: I47.10 Supraventricular tachycardia, unspecified (principal)
CPT/HCPCS: 93350; Q9957

== ENCOUNTER → 2022-11-06 10:37 | Outpatient (BNV) | payer MEDICARE, MEDICAID, SELFPAY | PROVIDERS: Visit Provider Nurse Practitioner | DX: R06.02 Shortness of breath (principal) | CPT/HCPCS: 93016; 93018; 93350; 93352 ==

== ENCOUNTER 2022-11-14 09:21 | Outpatient (AMB) | payer MEDICARE, MEDICAID, SELFPAY ==
--- NOTE | 2022-11-14 09:28 | MHC.PC.OV ---
Vital Signs 11/14/22 09:29 Height 5 ft 10 in Weight 215 lb 4 oz BMI 30.9 BP 126/74 Blood Pressure Location Lt brachial Position Sitting Pulse 74 Pulse Source Pulse Oximeter Pulse Oximetry (%) 94 Oxygen Delivery Method Room Air Intake Visit Reasons: HTN, hx SVT Intake Note: Patient is here to follow up on HTN, SVT. Target Developer Required: No Pot Runner: Not Required per policy Accompanied by: Self / Same As Patient Allergies No Known Allergies [No Known Allergies*] Allergy (Verified 11/14/22 09:28) Tobacco use date assessed: 11/14/22 Fall risk assessment: No Falls in past year Last assessed Fall Risk: 11/14/22 Dental Screening Dental Screen Date: 11/14/22 Did you have a dental visit in the last 12 months?: No Did you have a dental problem in the last 6 months where you did not have access to dental care?: No Was dental information given to patient?: No HPI HPI Comments History of Present Illness Details 67-year old male past medical history significant for HTN, anxiety,depression, prostates CA s/p chemo and radiation. Review of the notes patient only currently established with Cardiology for history of SVT on metoprolol tartrate 12.5 mg b.i.d. PAtient reports was at [facility] the other day HR 190's states was given adenosine x 2 to slow heart Right. Will request records this. Patient denies any chest pain, palpitations, shortness of breath at this time. Patient reminded to complete Cologuard screening test. Patient has upcoming appointment with Urology to establish care for spermatoceles. Declined flu shot. [facility] Medical History (Updated 09/05/22 @ 13:14 by JAYLON Cui) Anxiety and depression Brain bleed Prostate cancer Myocardial infarct HTN (hypertension) Surgical History S/P lumpectomy, right breast Family History Mother No problems noted. Father No problems noted. Social History Housing: House (Shared living) Alcohol intake: never Patient Tobacco Use Status: Current everyday Tobacco user Tobacco use type: Cigarette Cigarette Packs Per Day: 1.5 Cigarettes Per Day: 30 Years Smoked: 53 e-Cigarette/Vaping Use: Never Used Second Hand Smoke Exposure: Yes service: No Current occupational status: retired Cognitive needs: No Hearing needs: No Vision needs: Yes (glasses) Questionnaire Thrive Questionnaire Date Thrive assessed: 05/09/22 RACHEAL-7 AMB Questionnaire RACHEAL-7 Date RACHEAL - 7 assessed: 05/09/22 Source: Developed by Drs. Kuldeep Banegas, Vesna Gentile, Zaheer Jones and colleagues, with an educational enoc from [email or web address]. Review of Systems Const Denies chills, Denies fatigue, Denies fever(s) and Denies poor appetite Eyes Denies no additional complaints ENT Reports Normal hearing present Card Denies chest pain, Denies syncope, Denies rapid heart rate and Denies dyspnea Resp Denies cough and Denies dyspnea GI Denies change in stool character, Denies constipation, Denies diarrhea, Denies nausea and Denies vomiting Denies dysuria, Denies urinary frequency and Denies urinary urgency Neuro Reports Normal hearing present, Denies confusion and Denies syncope Psych Denies confusion Endo Denies fatigue Physical exam (Primary Care) Vital Signs: Last Vital Signs Pulse 74 11/14/22 09:29 BP 126/74 11/14/22 09:29 Pulse Ox 94 11/14/22 09:29 Oxygen Delivery Method Room Air 11/14/22 09:29 BMI result Body Mass Index 30.9 Tobacco/Smoking Status: Tobacco use Status Tobacco use date assessed 11/14/22 11/14/22 09:34 Patient Tobacco Use Status Current everyday Tobacco 11/14/22 09:34 Tobacco use type Cigarette 11/14/22 09:34 e-Cigarette/Vaping Use Never Used 11/14/22 09:34 Thrive Assessment: Date of Thrive Assessment Date Thrive assessed 05/09/22 11/14/22 09:34 Const General: No confusion Orientation/consciousness: No confusion HENMT Head: Yes normocephalic and Yes atraumatic Eyes Conjunctivae: conjunctivae normal Chest Chest palpation & inspection: normal inspection of the chest Resp Effort & Inspection: normal respiratory effort Auscultation: clear to auscultation bilaterally, no crackles, no rhonchi and no wheezes Cardio Rate: regular rate Rhythm: regular rhythm Heart sounds: S1 normal heart sound present and S2 normal heart sound present GI Inspection: Yes normal to inspection Neuro General: No confusion Cranial nerves: Yes Normal hearing present Extrem General: No edema Assessment and Plan Assessment & Plan (1) SVT (supraventricular tachycardia): Code(s): I47.1 - Supraventricular tachycardia Plan: Continue on metoprolol tartrate 12.5 mg b.i.d. Continue to follow with Cardiology Patient reports had recent stress test and has upcoming follow-up for this next week. (2) HTN (hypertension): Code(s): I10 - Essential (primary) hypertension Plan: Continue on metoprolol. Blood pressure optimal in office today. Follow low-salt exercise. (3) Anxiety and depression: Code(s): F41.9 - Anxiety disorder, unspecified; F32.A - Depression, unspecified Plan: Continue to follow with psychologist. (4) Chronic back pain: Code(s): M54.9 - Dorsalgia, unspecified; G89.29 - Other chronic pain Plan: Refill sent on gabapentin 300 mg b.i.d. Plan Follow up in 3 months. Coding Level of Care Code Est Pt Level 4 (28611) Diagnoses SVT (supraventricular tachycardia) I47.1 HTN (hypertension) I10 Anxiety and depression F41.9; F32.A Chronic back pain M54.9; G89.29
[2022-11-14 09:29] VITALS: BP 126/74; PULSE 74; O2SAT 94; BMI 30.9
== END 2022-11-14 10:18 | disposition home or self-care (01) ==
PROVIDERS: Visit Provider Nurse Practitioner Family
DX: I47.1 Supraventricular tachycardia (principal); I10 Essential (primary) hypertension; F41.9 Anxiety disorder, unspecified; F32.A Depression, unspecified; M54.9 Dorsalgia, unspecified; G89.29 Other chronic pain
CPT/HCPCS: 99214

== ENCOUNTER 2022-11-17 08:15 | Outpatient (AMB) | payer MEDICARE, MEDICAID, SELFPAY ==
[2022-11-17 08:17] VITALS: BP 100/62; PULSE 80; BMI 30.9
--- NOTE | 2022-11-17 08:17 | MHC.OFFVIS ---
Intake Vital Signs 11/17/22 08:17 Height 5 ft 10 in Weight 215 lb 9.793 oz BMI 30.9 BP 100/62 Blood Pressure Location Lt brachial Position Sitting Pulse 80 Pulse Source Pulse Oximeter Intake Visit Reasons: 2 mth f/up testing Intake Note: 2 mth f/u testing Box Blank Machine Operator Helper Required: No Allergies No Known Allergies [No Known Allergies*] Allergy (Verified 11/17/22 08:24) Medication List - Last Reconciled 11/17/22 by MARY Dos SantosC atorvastatin 40 mg PO DAILY cetirizine 10 mg PO DAILY PRN gabapentin 300 mg PO BID metoprolol tartrate 12.5 mg (1/2 x 25 mg) PO BID 90 days naproxen 500 mg PO BID PRN HPI 2 mth f/up testing HPI Details Wolfgang is a 68-year-old male past medical history of hypertension, SVT who was seen in the emergency room on 08/05/2022 for palpitations, SVT requiring adenosine times to then cardioversion. He was referred to Cardiology for consultation. On last visit here an echocardiogram, stress test and Holter monitor were ordered. He was referred to electrophysiology for ablation. Today he reports that he was seen in [facility] on 11/11/2022 for recurrent heart palpitations. He says he was again treated with 2 doses of adenosine which did work. He believes he was dehydrated that day. He drinks 2 cups of caffeinated coffee per day. He denies any alcohol use. When he gets the palpitations he feels pressure up into his neck. When the rhythm returns to normal his symptoms resolved. No other chest discomfort at rest or with activity. No shortness of breath, PND, orthopnea or edema. No presyncope, syncope, falls. He has been taking his medication. He believes he has and electrophysiology appointment in January. [facility] Medical History Anxiety and depression Brain bleed Prostate cancer Myocardial infarct HTN (hypertension) Surgical History S/P lumpectomy, right breast Family History Mother No problems noted. Father No problems noted. Social History Housing: House (Shared living) Alcohol intake: never Patient Tobacco Use Status: Current everyday Tobacco user Tobacco use type: Cigarette Cigarette Packs Per Day: 1.5 Cigarettes Per Day: 30 Years Smoked: 53 e-Cigarette/Vaping Use: Never Used Second Hand Smoke Exposure: Yes service: No Current occupational status: retired Cognitive needs: No Hearing needs: No Vision needs: Yes (glasses) Review of Systems Const All systems reviewed & are unremarkable except as noted in HPI and below ENT Denies dizziness Card Denies chest pain, Denies chest pain at rest, Denies chest pain with activity, Reports rapid heart rate, Denies pedal edema, Denies edema, Denies leg edema, Denies lightheadedness, Reports palpitations, Denies dyspnea, Denies dyspnea on exertion and Denies orthopnea Resp Denies cough, Denies dyspnea and Denies dyspnea on exertion GI Denies hematochezia and Denies change in stool character Musc Denies abnormal gait, Denies limited range of motion, Denies muscle cramps, Denies muscle weakness, Denies numbness, Denies radiating pain into limb, Denies stiffness and Denies tingling Neuro Denies abnormal gait, Denies dizziness, Denies numbness and Denies tingling Endo Reports palpitations Physical Exam Vital Signs: BMI result Body Mass Index 30.9 Const Other: Vague historian General: cooperative, healthy appearing, comfortable and no acute distress Orientation/consciousness: patient oriented x3 Neck Neck: Yes normal visual inspection Resp Effort & Inspection: normal respiratory effort Auscultation: clear to auscultation bilaterally, no crackles, no rales, no rhonchi and no wheezes Cardio Jugular venous distension: no JVD Rate: regular rate Rhythm: regular rhythm Heart sounds: S1 normal heart sound present, S2 normal heart sound present, no murmurs and no rubs Neuro General: patient oriented x3 Extrem General: Yes normal to inspection Psych Appearance: grossly normal Mental Status: mental status grossly normal Speech and movement: Normal speech and movement present Assessment & Plan Assessment & Plan (1) SVT (supraventricular tachycardia): Code(s): I47.1 - Supraventricular tachycardia Plan: Reported history of SVT without treatment. Did require ER visit 08/05/2022 for episode of SVT, symptomatic. He was treated with adenosine times to then had cardioversion with successful conversion back to sinus rhythm. EKGs showing SVT not available however rhythm strips from EMS reviewed by Dr. 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 He underwent a cardiac event monitor on 09/26/2022 which was for 30 days however he only wore on 8 days showing sinus rhythm with average heart rate 69, heart rate range 51 to 136, no atrial fibrillation, rare SVE and ve. Echocardiogram done 09/26/2022 showed EF 60%, no valve abnormalities and No reported wall motion abnormality. . Exercise stress echo done 11/06/2022 showed exercise 3 minute with report of chest discomfort and moderate shortness of breath, no EKG changes and no echo evidence of ischemia. Today he reports he was seen in [facility] ER on 11/11/2022 with recurrent palpitations. He received 2 doses of adenosine with conversion back to sinus rhythm. He has not had recurrent SVT since that time. Will work on obtaining those records. He is still drinking 2 cups of caffeinated beverages daily. Instructed to switch to decaf. His blood pressure is on the low side. Will increase metoprolol slightly. Will have him take 25 mg in the a.m. and 12.5 mg in the p.m.. Electrophysiology appointment in January. Reviewed vagal maneuvers with him. Emergency care if needed for symptoms. Cardiology office visit in 3 months, sooner if needed (2) HTN (hypertension): Code(s): I10 - Essential (primary) hypertension Qualifiers: Hypertension type: unspecified Qualified Code(s): I10 - Essential (primary) hypertension Plan: Low side today. Asymptomatic. Coding Level of Care Code Est Pt Level 3 (95303) Diagnoses SVT (supraventricular tachycardia) I47.1 Hypertension, unspecified type I10 Hypertension type: unspecified Time Spent (min) 22
== END 2022-11-17 08:47 | disposition home or self-care (01) ==
PROVIDERS: Visit Provider Nurse Practitioner Family
DX: I47.1 Supraventricular tachycardia (principal); I10 Essential (primary) hypertension
CPT/HCPCS: 99213

== ENCOUNTER → 2022-11-17 08:15 | Outpatient (BNVA) | payer MEDICARE, MEDICAID, SELFPAY | PROVIDERS: Visit Provider Nurse Practitioner Family | DX: I47.10 Supraventricular tachycardia, unspecified (principal); I10 Essential (primary) hypertension | CPT/HCPCS: 99212 ==

== ENCOUNTER 2022-11-20 10:53 | Outpatient (AMB) | payer MEDICARE, MEDICAID, SELFPAY ==
--- NOTE | 2022-11-20 10:55 | A.OFFVIS_ITS ---
Intake Intake Visit Reasons: p Intake Note: New Patient presents for initial visit for testicular cyst/spermatocele Urology Medications: none Blood Thinner: none Regulatory Specialist Required: No Accompanied by: Self / Same As Patient Allergies No Known Allergies [No Known Allergies*] Allergy (Verified 11/20/22 14:07) Medication List - Last Reconciled 11/20/22 by JAYLON Brown-LEDA atorvastatin 40 mg PO DAILY cetirizine 10 mg PO DAILY PRN gabapentin 300 mg PO BID metoprolol tartrate 12.5 mg (1/2 x 25 mg) PO BID 90 days naproxen 500 mg PO BID PRN HPI HPI Comments History of Present Illness Details Wolfgang is a 67-year-old male patient of Dr. Iyer. He has a past medical history of anxiety, depression, prostate cancer, brain bleed, myocardial infarction, and hypertension. He presents to the office today as a new patient for bilateral spermatoceles. In discussion with the patient today reports to be doing and feeling well. He reports following up with PCP and discussing increase in left-side of the scrotum. At which time a scrotal ultrasound was ordered and performed. These results were reviewed with the patient today. Bilateral spermatoceles, larger on left than right. Incidentally noted 6 mm right testicular cyst. Incidentally noted right epididymal appendix. Echogenic foci in the right epididymal tail with comet tail artifact suggestive of epididymal microlithiasis or possibly artifact secondary to epididymal cystic change. In assessment of the patient today bilateral spermatoceles noted. Left side greater than right no pain noted upon palpation. No open areas or drainage noted to penis, scrotum, and or bilateral testicles. Patient denies any bothersome urinary issues or concerns. He denies pain. He does report a longstanding history of prostate cancer. He reports in 2008 undergoing 9 months of hormone therapy as well as undergoing 40 days of radiation. He reports previously following up with [facility] in [place]. In review of patient's chart it appears PSA 05/28--1.2. Discussed signing medical record release form to obtain previous urology records for continuity of care. Discussed at length spermatocelectomy versus surveillance monitoring. Discussed risks and benefits of surgical intervention versus surveillance monitoring. All questions were answered. When asked patient denies urinary urgency, urinary frequency, incontinence, nocturia, hematuria, dysuria, foul smelling urine, changes to urinary stream, flank pain, fever, and or chills. He is happy with his current voiding parameters. In office urinalysis results reviewed with the patient today. [facility] Medical History (Updated 11/20/22 @ 12:10 by Marietta Gambino [facility]) Anxiety and depression Brain bleed Prostate cancer Myocardial infarct HTN (hypertension) Surgical History S/P lumpectomy, right breast Family History Mother No problems noted. Father No problems noted. Social History Housing: House (Shared living) Alcohol intake: never Patient Tobacco Use Status: Current everyday Tobacco user Tobacco use type: Cigarette Cigarette Packs Per Day: 1.5 Cigarettes Per Day: 30 Years Smoked: 53 e-Cigarette/Vaping Use: Never Used Second Hand Smoke Exposure: Yes service: No Current occupational status: retired Cognitive needs: No Hearing needs: No Vision needs: Yes (glasses) Review of Systems Const Reports as per HPI Eyes Reports no additional complaints ENT Reports no additional complaints Card Reports as per HPI Resp Reports no additional complaints GI Reports no additional complaints Reports as per HPI Musc Reports no additional complaints Neuro Reports as per HPI Psych Reports as per HPI Endo Reports no additional complaints Physical Exam Const General: cooperative, comfortable, no acute distress, well developed, alert and awake Orientation/consciousness: patient oriented x3 Limitations: no limitations HEENT Head: Yes normal to inspection, Yes normocephalic and Yes atraumatic Ears: hearing grossly normal bilaterally Eyes General: appearance normal, both eyes and all related structures Neck Neck: Yes normal visual inspection and Yes trachea midline Chest Chest palpation & inspection: normal inspection of the chest Resp Effort & Inspection: normal respiratory effort and able to speak in complete sentences Cardio Rate: regular rate GI Inspection: Yes normal to inspection General: Yes no CVA tenderness Male General Exam: Yes normal external exam Penis: normal penis and circumcised Meatus: meatus normal Scrotum: Spermatocele present (left side greater than right ) bilateral Testes: Testes normal Back/Spine/Pelvis Back: no CVA tenderness Skin General skin exam: no rashes or lesions noted Neuro General: patient oriented x3 Extrem General: Yes normal to inspection Psych Appearance: grossly normal and well kempt Mental Status: mental status grossly normal Speech and movement: Normal speech and movement present and Clear speech present Affect: normal affect Attitude: cooperative Thought process: Normal thought process present Thought content: Normal thought content present Insight: Fair insight present (Psych) Judgement: Fair judgement present (Psych) Results AMB Urinalysis, Automated UA Leukoctes 0 Kip/uL Last Edit by [employer] on 11/20/22 11:21 UA Nitrite Negative Last Edit by [employer] on 11/20/22 11:21 UA Urobilinogen 0.2 mg/dL Last Edit by [employer] on 11/20/22 11:21 UA Protein 15 mg/dL Last Edit by [employer] on 11/20/22 11:21 UA pH 6.0 Last Edit by [employer] on 11/20/22 11:21 UA Blood 0 Guy/uL Last Edit by [employer] on 11/20/22 11:21 UA Specific [place] 1.025 Last Edit by [employer] on 11/20/22 11:21 UA Ketone Negative Last Edit by [employer] on 11/20/22 11:21 UA Bilirubin 0 mg/dL Last Edit by [employer] on 11/20/22 11:21 UA Glucose 0 mg/dL Last Edit by [employer] on 11/20/22 11:21 Results Reviewed Results Reviewed: Laboratory Last Values Urine pH (Auto) 6.0 11/20/22 11:05 Specific [place] (Auto) 1.025 11/20/22 11:05 Urine Protein (Auto) 15 mg/dL 11/20/22 11:05 Glucose (UA)(Auto) 0 mg/dL 11/20/22 11:05 Urine Ketones (Auto) Negative 11/20/22 11:05 Urine Blood (Auto) 0 Guy/uL 11/20/22 11:05 Urine Nitrite (Auto) Negative 11/20/22 11:05 Urine Bilirubin (Auto) 0 mg/dL 11/20/22 11:05 Urine Urobilinogen (Auto) 0.2 mg/dL 11/20/22 11:05 Leukocyte Esterase (Auto) 0 Kip/uL 11/20/22 11:05 Date of Service: 08/28/22 EXAMINATION: US SCROTUM FINDINGS: RIGHT: Right testicle measures 3.7 x 1.9 x 2.6 cm, volume 9.95 mL. No focal testicular parenchymal lesions are visualized. Spectral Doppler analysis of the arterial and venous flow is normal in the right testis. Incidentally noted right epididymal appendix. Tubular ectasia of the rete testes. Incidentally noted 6 mm right testicular cyst. Large spermatocele with multiple epididymal cysts. Echogenic foci in the epididymal tail with comet tail artifact suggestive of epididymal microlithiasis or possibly artifact secondary to epididymal cystic change. No right hydrocele or varicocele is seen. Right epididymal Doppler flow is normal. LEFT: Left testicle measures 2.9 x 2.2 x 3.5 cm, volume 11.7 mL. No focal testicular parenchymal lesions are visualized. Spectral Doppler analysis of the arterial and venous flow is normal in the left testis. Left epididymal head is normal in size. No left hydrocele or varicocele is seen. Large spermatocele. Tubular ectasia of the rete testes. Left epididymal Doppler flow is normal. IMPRESSION: 1. 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 2. Incidentally noted 6 mm right testicular cyst. 3. Incidentally noted right epididymal appendix. 4. Echogenic foci in the right epididymal tail with comet tail artifact suggestive of epididymal microlithiasis or possibly artifact secondary to epididymal cystic change. Assessment & Plan Assessment & Plan (1) Prostate cancer: Code(s): C61 - Malignant neoplasm of prostate (2) Spermatocele: Code(s): N43.40 - Spermatocele of epididymis, unspecified Plan In office urinalysis results reviewed with the patient today; as noted above. Patient denies any bothersome urinary issues or concerns at this time. Patient reports to be happy with current voiding parameters. Recent scrotal ultrasound results reviewed with the patient today. Bilateral spermatoceles noted left side greater than right. Discussed at length spermatocelectomy versus surveillance monitoring. Discussed risks and benefits of surgical intervention versus surveillance monitoring. Will attempt to obtain previous urology records for continuity of care. Will obtain PSA. Follow-up in 1 month with lab to be completed prior; or sooner with any issues, concerns, and or questions. Orders: Orders AMB Urinalysis Automated Today Z13.9 - Encounter for screening, unspecified Prostate Specific Antigen Today C61 - Malignant neoplasm of prostate Patient Instructions: The patient had an opportunity to ask questions regarding the treatment plan. All questions were answered. Physical exam, labs, and imaging were discussed and reviewed in detail. As well as risks, benefits, and discussion of treatment choices. No major barriers to understanding were identified. The patient expressed understanding and agreement with the above treatment plan. The patient was made aware they should contact our office by phone for worsening of their current condition, the appearance of new symptoms, or with any questions or concerns. Compliance is encouraged with any medications and follow up testing that is ordered. It is a privilege to be allowed the opportunity to participate in? your urological care.? Again, if you have any questions or concerns If you have any questions or concerns please do not hesitate to contact me. The office is [phone]. This note is constructed using voice recognition software. While every effort has been made to ensure accuracy hospice educator errors may have been included. Yours sincerely, JOSUE Brown Coding Level of Care Code New Pt Level 3 (09727) Diagnoses Prostate cancer C61 Spermatocele N43.40
== END 2022-11-20 15:17 | disposition home or self-care (01) ==
PROVIDERS: PCP Nurse Practitioner Family; Visit Provider Nurse Practitioner Family
DX: C61 Malignant neoplasm of prostate (principal); N43.40 Spermatocele of epididymis, unspecified
CPT/HCPCS: 99203

== ENCOUNTER → 2022-11-20 10:53 | Outpatient (BNVA) | payer MEDICARE, MEDICAID, SELFPAY | PROVIDERS: Visit Provider Nurse Practitioner Family | DX: N43.40 Spermatocele of epididymis, unspecified (principal); C61 Malignant neoplasm of prostate | CPT/HCPCS: 81003 ==

== ENCOUNTER 2022-11-30 10:45 | Outpatient (REF) | payer MEDICARE, MEDICAID, SELFPAY ==
[2022-11-30 12:29] LABS: Anion Gap 13 (12-20); Blood Urea Nitrogen 14 mg/dL (9-16); Calcium 9.4 mg/dL (8.4-10.2); Carbon Dioxide 25 mmol/L (22-29); Chloride 107 mmol/L (96-108); Estimated Glomerular Filt Rate 59; Glucose Random 89 mg/dL (60-115); Potassium 4.3 mmol/L (3.3-5.1); Sodium 141 mmol/L (135-145)
[2022-11-30 12:44] LABS: Prostate Specific Antigen 1.41 ng/mL (<0.05-4.0)
== END 2022-11-30 10:46 | disposition home or self-care (01) ==
LOC: HO.LAB 10:45
PROVIDERS: Internal Medicine; PCP Nurse Practitioner Family; Visit Provider Nurse Practitioner Family
DX: C61 Malignant neoplasm of prostate (principal); I10 Essential (primary) hypertension; I47.10 Supraventricular tachycardia, unspecified; Z12.5 Encounter for screening for malignant neoplasm of prostate
CPT/HCPCS: 36415; 80048; 84153

== ENCOUNTER 2022-12-08 10:39 | Outpatient (AMB) | payer MEDICARE, MEDICAID, SELFPAY ==
--- NOTE | 2022-12-08 10:43 | A.OFFVIS_ITS ---
Intake Intake Visit Reasons: 2w/labs(set) Intake Note: Patient presents for follow up visit for testicular cyst/spermatocele/prostate cancer/psa lab (psa 1.41) Urology Medications: none Blood Thinner: none Parachute Supervisor Required: No Accompanied by: Self / Same As Patient Allergies No Known Allergies [No Known Allergies*] Allergy (Verified 12/08/22 11:14) Medication List - Last Reconciled 12/08/22 by JOSUE Brown atorvastatin 40 mg PO DAILY cetirizine 10 mg PO DAILY PRN gabapentin 300 mg PO BID metoprolol tartrate 12.5 mg (1/2 x 25 mg) PO BID 90 days naproxen 500 mg PO BID PRN HPI HPI Comments History of Present Illness Details Wolfgang is a 67-year-old male patient of Dr. Iyer. He has a past medical history of anxiety, depression, prostate cancer, brain bleed, myocardial infarction, and hypertension. He presents to the office today for a follow up of his history of prostate cancer and for his bilateral spermatoceles. In discussion with the patient today reports to be doing and feeling well. PSAs are as follows: 05/28--1.2 11/27-- 1.4 During patients last office visit medical record release form was signed in attempt to to obtain previous urology records from [facility] however no records obtain. This was discussed with the patient at length. Encouraged patient to obtain previous urology records for continuity of care. Patient with a history of bilateral spermatoceles, larger on left than right. Discussed continuation of surveillance monitoring versus spermatocelectomy. Patient will continue with surveillance monitoring. Patient otherwise denies any bothersome urinary issues or concerns. He denies pain. Discussed risks and benefits of surgical intervention versus surveillance monitoring. All questions were answered. When asked patient denies urinary urgency, urinary frequency, incontinence, nocturia, hematuria, dysuria, foul smelling urine, changes to urinary stream, flank pain, fever, and or chills. He is happy with his current voiding parameters. In office urinalysis results reviewed with the patient today. [facility] Medical History Anxiety and depression Brain bleed Prostate cancer Myocardial infarct HTN (hypertension) Surgical History S/P lumpectomy, right breast Family History Mother No problems noted. Father No problems noted. Social History Housing: House (Shared living) Alcohol intake: never Patient Tobacco Use Status: Current everyday Tobacco user Tobacco use type: Cigarette Cigarette Packs Per Day: 1.5 Cigarettes Per Day: 30 Years Smoked: 53 e-Cigarette/Vaping Use: Never Used Second Hand Smoke Exposure: Yes service: No Current occupational status: retired Cognitive needs: No Hearing needs: No Vision needs: Yes (glasses) Review of Systems Const Reports as per HPI Eyes Reports no additional complaints ENT Reports no additional complaints Card Reports as per HPI Resp Reports no additional complaints GI Reports no additional complaints Reports as per HPI Musc Reports no additional complaints Neuro Reports as per HPI Psych Reports as per HPI Endo Reports no additional complaints Physical Exam Const General: cooperative, comfortable, no acute distress, well developed, alert and awake Orientation/consciousness: patient oriented x3 Limitations: no limitations HEENT Head: Yes normal to inspection, Yes normocephalic and Yes atraumatic Ears: hearing grossly normal bilaterally Eyes General: appearance normal, both eyes and all related structures Neck Neck: Yes normal visual inspection and Yes trachea midline Chest Chest palpation & inspection: normal inspection of the chest Resp Effort & Inspection: normal respiratory effort and able to speak in complete sentences Cardio Rate: regular rate GI Inspection: Yes normal to inspection General: Yes no CVA tenderness Back/Spine/Pelvis Back: no CVA tenderness Skin General skin exam: no rashes or lesions noted Neuro General: patient oriented x3 Extrem General: Yes normal to inspection Psych Appearance: grossly normal and well kempt Mental Status: mental status grossly normal Speech and movement: Normal speech and movement present and Clear speech present Affect: normal affect Attitude: cooperative Thought process: Normal thought process present Thought content: Normal thought content present Insight: Fair insight present (Psych) Judgement: Fair judgement present (Psych) Results AMB Urinalysis, Automated UA Leukoctes 0 Kip/uL Last Edit by Jayne Yadav on 12/08/22 11:00 UA Nitrite Negative Last Edit by Jayne Yadav on 12/08/22 11:00 UA Urobilinogen 0.2 mg/dL Last Edit by Jayne Garcianando on 12/08/22 11:00 UA Protein 30 mg/dL Last Edit by Natansharif Radhanando on 12/08/22 11:00 UA pH 5.0 Last Edit by Jayne Garcianando on 12/08/22 11:00 UA Blood 0 Guy/uL Last Edit by Mamadouildefonso Radhanando on 12/08/22 11:00 UA Specific [place] 1.030 Last Edit by Natansharif Radhanando on 12/08/22 11:00 UA Ketone Negative Last Edit by Natansharif Radhanando on 12/08/22 11:00 UA Bilirubin 1 mg/dL Last Edit by Mamadouildefonso Radhanando on 12/08/22 11:00 UA Glucose 0 mg/dL Last Edit by Jayne Radhanando on 12/08/22 11:00 Results Reviewed Results Reviewed: Laboratory Last Values Urine pH (Auto) 5.0 12/08/22 10:47 Specific [place] (Auto) 1.030 12/08/22 10:47 Urine Protein (Auto) 30 mg/dL 12/08/22 10:47 Glucose (UA)(Auto) 0 mg/dL 12/08/22 10:47 Urine Ketones (Auto) Negative 12/08/22 10:47 Urine Blood (Auto) 0 Guy/uL 12/08/22 10:47 Urine Nitrite (Auto) Negative 12/08/22 10:47 Urine Bilirubin (Auto) 1 mg/dL 12/08/22 10:47 Urine Urobilinogen (Auto) 0.2 mg/dL 12/08/22 10:47 Leukocyte Esterase (Auto) 0 Kip/uL 12/08/22 10:47 Assessment & Plan Assessment & Plan (1) Prostate cancer: Code(s): C61 - Malignant neoplasm of prostate (2) Spermatocele: Code(s): N43.40 - Spermatocele of epididymis, unspecified Plan In office urinalysis results reviewed with the patient today; as noted above. Will continue with surveillance monitoring of spermatoceles. Patient denies any bothersome urinary issues or concerns at this time. Patient reports to be happy with current voiding parameters. Discussed at length spermatocelectomy versus surveillance monitoring. Discussed risks and benefits of surgical intervention versus surveillance monitoring. Discussed for patient to attempt to obtain previous urology records for continuity of care as medical release form signed during last office visit and fax to [facility] however no medical records were received. Recent PSA results reviewed with the patient today. Will obtain PSA in 4 months. Follow-up in 4 months with lab to be completed prior; or sooner with any issues, concerns, and or questions. Orders: Orders AMB Urinalysis Automated Today Z13.9 - Encounter for screening, unspecified Patient Instructions: The patient had an opportunity to ask questions regarding the treatment plan. All questions were answered. Physical exam, labs, and imaging were discussed and reviewed in detail. As well as risks, benefits, and discussion of treatment choices. No major barriers to understanding were identified. The patient expressed understanding and agreement with the above treatment plan. The patient was made aware they should contact our office by phone for worsening of their current condition, the appearance of new symptoms, or with any questions or concerns. Compliance is encouraged with any medications and follow up testing that is ordered. It is a privilege to be allowed the opportunity to participate in? your urological care.? Again, if you have any questions or concerns If you have any questions or concerns please do not hesitate to contact me. The office is [phone]. This note is constructed using voice recognition software. While every effort has been made to ensure accuracy combustion analyst errors may have been included. Yours sincerely, JOSUE Brown Coding Level of Care Code Est Pt Level 3 (95087) Diagnoses Prostate cancer C61 Spermatocele N43.40
== END 2022-12-08 11:13 | disposition home or self-care (01) ==
PROVIDERS: PCP Nurse Practitioner Family; Visit Provider Nurse Practitioner Family
DX: C61 Malignant neoplasm of prostate (principal); N43.40 Spermatocele of epididymis, unspecified; Z13.9 Encounter for screening, unspecified
CPT/HCPCS: 99213

== ENCOUNTER → 2022-12-08 10:39 | Outpatient (BNVA) | payer MEDICARE, MEDICAID, SELFPAY | PROVIDERS: PCP Nurse Practitioner Family; Visit Provider Nurse Practitioner Family | DX: N43.40 Spermatocele of epididymis, unspecified (principal); C61 Malignant neoplasm of prostate | CPT/HCPCS: 81003; 99212 ==

== ENCOUNTER 2023-02-27 09:47 | Outpatient (AMB) | payer MEDICARE, MEDICAID, SELFPAY ==
--- NOTE | 2023-02-27 10:16 | MHC.OFFVIS ---
Intake Vital Signs 02/27/23 10:17 Height 5 ft 10 in Weight 214 lb 11.684 oz BMI 30.8 BP 100/72 Blood Pressure Location Lt brachial Position Sitting Pulse 73 Pulse Source Pulse Oximeter Intake Visit Reasons: follow up 3 month [employer] Required: No Allergies No Known Allergies [No Known Allergies*] Allergy (Verified 02/27/23 10:19) Medication List - Last Reconciled 02/27/23 by Lady Jacobs NP-C atorvastatin 40 mg PO DAILY cetirizine 10 mg PO DAILY PRN gabapentin 300 mg PO BID metoprolol tartrate 12.5 mg (1/2 x 25 mg) PO BID 90 days naproxen 500 mg PO BID PRN HPI follow up 3 month HPI Details Wolfgang is a 67-year-old male past medical history of hypertension, SVT who was seen in the emergency room on 08/05/2022 for palpitations, SVT requiring adenosine times to then cardioversion. He was referred to Cardiology for consultation. Cardiac testing was done and he was referred to electrophysiology for ablation. Today he reports that he has not had any recurrent episodes of the fast heart rate since his last visit in November. He is quite fearful that the fast heart rate will reoccur. He tells me he did see the career resource technician but that no procedure as scheduled. He is unable to recall which she doctor he saw. He is taking his medications as directed. No chest discomfort at rest or with activity. No shortness of breath, palpitations, presyncope, syncope, PND, orthopnea or edema. He does report having depression and that he has been just hibernating this winter. He admits to being mostly sedentary. [facility] Medical History Anxiety and depression Brain bleed Prostate cancer Myocardial infarct HTN (hypertension) Surgical History S/P lumpectomy, right breast Family History Mother No problems noted. Father No problems noted. Social History Housing: House (Shared living) Alcohol intake: never Patient Tobacco Use Status: Current everyday Tobacco user Tobacco use type: Cigarette Cigarette Packs Per Day: 1.5 Cigarettes Per Day: 30 Years Smoked: 53 e-Cigarette/Vaping Use: Never Used Second Hand Smoke Exposure: Yes service: No Current occupational status: retired Cognitive needs: No Hearing needs: No Vision needs: Yes (glasses) Review of Systems Const All systems reviewed & are unremarkable except as noted in HPI and below ENT Denies dizziness Card Denies chest pain, Denies chest pain at rest, Denies chest pain with activity, Reports rapid heart rate, Denies pedal edema, Denies edema, Denies leg edema, Denies lightheadedness, Denies palpitations, Denies dyspnea, Denies dyspnea on exertion and Denies orthopnea Resp Denies cough, Denies dyspnea and Denies dyspnea on exertion GI Denies hematochezia and Denies change in stool character Musc Denies abnormal gait, Denies limited range of motion, Denies muscle cramps, Denies muscle weakness, Denies numbness, Denies radiating pain into limb, Denies stiffness and Denies tingling Neuro Denies abnormal gait, Denies dizziness, Denies numbness and Denies tingling Endo Denies palpitations Physical Exam Vital Signs: Last Vital Signs Pulse 73 02/27/23 10:17 BP 100/72 02/27/23 10:17 BMI result Body Mass Index 30.8 Const General: cooperative, healthy appearing, comfortable and no acute distress Orientation/consciousness: patient oriented x3 Neck Neck: Yes normal visual inspection and Yes no JVD Resp Effort & Inspection: normal respiratory effort Auscultation: clear to auscultation bilaterally, no rales, no rhonchi and no wheezes Cardio Jugular venous distension: no JVD Rate: regular rate Rhythm: regular rhythm Heart sounds: S1 normal heart sound present, S2 normal heart sound present, no murmurs and no rubs Neuro General: patient oriented x3 Extrem General: Yes normal to inspection, No no pedal edema and No calf tenderness Psych Appearance: grossly normal Mental Status: mental status grossly normal Speech and movement: Normal speech and movement present Assessment & Plan Assessment & Plan (1) SVT (supraventricular tachycardia): Code(s): I47.1 - Supraventricular tachycardia Plan: Reported history of SVT without treatment in past. Did require ER visit 08/05/2022 for episode of SVT, symptomatic. He was treated with adenosine times to then had cardioversion with successful conversion back to sinus rhythm. EKGs showing SVT not available however rhythm strips from EMS reviewed by Dr. 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 He underwent a cardiac event monitor on 09/26/2022 which was for 30 days however he only wore on 8 days showing sinus rhythm with average heart rate 69, heart rate range 51 to 136, no atrial fibrillation, rare SVE and ve. Echocardiogram done 09/26/2022 showed EF 60%, no valve abnormalities and No reported wall motion abnormality. . Exercise stress echo done 11/06/2022 showed exercise 3 minute with report of chest discomfort and moderate shortness of breath, no EKG changes and no echo evidence of ischemia. On last visit he reports he was seen in [facility] ER on 11/11/2022 with recurrent palpitations. He received 2 doses of adenosine with conversion back to sinus rhythm. He has not had recurrent SVT since that time. ED note now scanned in our record. Today he reports no recurrent episodes of heart palpitations since that time. Is taking metoprolol as directed, 25 mg in the a.m. and 12.5 mg in the p.m.. He says he was seen by electrophysiology but no ablation has been scheduled. Will work on obtaining the notes of his electrophysiology visit. Instructed to switch to decaf beverages. Reviewed vagal maneuvers with him. Emergency care if needed for symptoms. Cardiology office visit in 3-4 months, sooner if needed (2) HTN (hypertension): Code(s): I10 - Essential (primary) hypertension Qualifiers: Hypertension type: unspecified Qualified Code(s): I10 - Essential (primary) hypertension Plan: Low side today. Asymptomatic. Plan Time spent on chart review, documentation, interview assess Coding Level of Care Code Est Pt Level 3 (53147) Diagnoses SVT (supraventricular tachycardia) I47.1 Hypertension, unspecified type I10 Hypertension type: unspecified Time Spent (min) 24
[2023-02-27 10:17] VITALS: BP 100/72; PULSE 73; BMI 30.8
== END 2023-02-27 10:52 | disposition home or self-care (01) ==
PROVIDERS: PCP Nurse Practitioner Family; Visit Provider Nurse Practitioner Family
DX: I47.10 Supraventricular tachycardia, unspecified (principal); I10 Essential (primary) hypertension
CPT/HCPCS: 99213

== ENCOUNTER → 2023-02-27 09:47 | Outpatient (BNVA) | payer MEDICARE, MEDICAID, SELFPAY | PROVIDERS: PCP Nurse Practitioner Family; Visit Provider Nurse Practitioner Family | DX: I47.10 Supraventricular tachycardia, unspecified (principal); I10 Essential (primary) hypertension | CPT/HCPCS: 99212 ==

== ENCOUNTER 2023-04-03 13:22 | Outpatient (REF) | payer MEDICARE, MEDICAID, SELFPAY ==
[2023-04-03 14:35] LABS: Prostate Specific Antigen 1.08 ng/mL (<0.05-4.0)
== END 2023-04-03 13:23 | disposition home or self-care (01) ==
LOC: HO.LAB 13:22
PROVIDERS: Visit Provider Nurse Practitioner Family
DX: C61 Malignant neoplasm of prostate (principal); Z12.5 Encounter for screening for malignant neoplasm of prostate
CPT/HCPCS: 36415; 84153

== ENCOUNTER 2023-04-09 10:47 | Outpatient (AMB) | payer MEDICARE, MEDICAID, SELFPAY ==
--- NOTE | 2023-04-09 11:01 | A.OFFVIS_ITS ---
Intake Intake Visit Reasons: 4m/PSA(set) Intake Note: Patient presents today for follow up visit for spermatocele, prostate cancer, and psa lab PSA: 1.08 Urology Medications: none Blood Thinner: none Tree And Shrub Worker Required: No Accompanied by: Self / Same As Patient Allergies No Known Allergies [No Known Allergies*] Allergy (Verified 04/09/23 20:56) Medication List - Last Reconciled 04/09/23 by JOSUE Brown atorvastatin 40 mg PO DAILY cetirizine 10 mg PO DAILY PRN gabapentin 300 mg PO BID metoprolol tartrate 12.5 mg (1/2 x 25 mg) PO BID 90 days naproxen 500 mg PO BID PRN HPI HPI Comments History of Present Illness Details Wolfgang is a 67-year-old male patient of Dr. Iyer. He has a past medical history of anxiety, depression, prostate cancer, brain bleed, myocardial infarction, and hypertension. He presents to the office today for a follow up of his history of prostate cancer and for his bilateral spermatoceles. In discussion with the patient today reports to be doing and feeling well. PSAs are as follows: 05/28--1.2 11/27-- 1.4 03/31--1.1 During patients last office visit medical record release form was signed in attempt to to obtain previous urology records from [facility] however no records obtain. This was discussed with the patient at length. Encouraged patient to obtain previous urology records for continuity of care. Patient with a history of bilateral spermatoceles, larger on left than right. Discussed continuation of surveillance monitoring versus spermatocelectomy. Patient will continue with surveillance monitoring at this time. Patient otherwise denies any bothersome urinary issues or concerns. He denies pain. Discussed risks and benefits of surgical intervention versus surveillance monitoring. All questions were answered. When asked patient denies urinary urgency, urinary frequency, incontinence, nocturia, hematuria, dysuria, foul smelling urine, changes to urinary stream, flank pain, fever, and or chills. He is happy with his current voiding parameters. In office urinalysis results reviewed with the patient bernard LOPEZ Medical History Anxiety and depression Brain bleed Prostate cancer Myocardial infarct HTN (hypertension) Surgical History S/P lumpectomy, right breast Family History Mother No problems noted. Father No problems noted. Social History Housing: House (Shared living) Alcohol intake: never Patient Tobacco Use Status: Current everyday Tobacco user Tobacco use type: Cigarette Cigarette Packs Per Day: 1.5 Cigarettes Per Day: 30 Years Smoked: 53 e-Cigarette/Vaping Use: Never Used Second Hand Smoke Exposure: Yes service: No Current occupational status: retired Cognitive needs: No Hearing needs: No Vision needs: Yes (glasses) Review of Systems Const Reports as per HPI Eyes Reports no additional complaints ENT Reports no additional complaints Card Reports as per HPI Resp Reports no additional complaints GI Reports no additional complaints Reports as per HPI Musc Reports no additional complaints Neuro Reports as per HPI Psych Reports as per HPI Endo Reports no additional complaints Physical Exam Const General: cooperative, comfortable, no acute distress, well developed, alert and awake Orientation/consciousness: patient oriented x3 Limitations: no limitations HEENT Head: Yes normal to inspection, Yes normocephalic and Yes atraumatic Ears: hearing grossly normal bilaterally Eyes General: appearance normal, both eyes and all related structures Neck Neck: Yes normal visual inspection and Yes trachea midline Chest Chest palpation & inspection: normal inspection of the chest Resp Effort & Inspection: normal respiratory effort and able to speak in complete sentences Cardio Rate: regular rate GI Inspection: Yes normal to inspection General: Yes no CVA tenderness Back/Spine/Pelvis Back: no CVA tenderness Skin General skin exam: no rashes or lesions noted Neuro General: patient oriented x3 Extrem General: Yes normal to inspection Psych Appearance: grossly normal and well kempt Mental Status: mental status grossly normal Speech and movement: Normal speech and movement present and Clear speech present Affect: normal affect Attitude: cooperative Thought process: Normal thought process present Thought content: Normal thought content present Insight: Fair insight present (Psych) Judgement: Fair judgement present (Psych) Results AMB Urinalysis, Automated UA Leukoctes 0 Kip/uL Last Edit by Yamileth Coon CMA on 04/09/23 11 :10 UA Nitrite Negative Last Edit by Yamileth Coon [facility] on 04/09/23 11: 10 UA Urobilinogen 0.2 mg/dL Last Edit by Yamileth Coon [facility] on 4 11:10 UA Protein 15 mg/dL Last Edit by Yamileth Coonterry Coon [facility] on 04/09/23 11:1 0 UA pH 6.0 Last Edit by Yamileth Coonterry Coon [facility] on 04/09/23 11:10 UA Blood 0 Guy/uL Last Edit by Yamileth Coonterry Coon [facility] on 04/09/23 11:10 UA Specific Cameron 1.030 Last Edit by [facility] Coon [facility] on 11:10 UA Ketone Positive Last Edit by Yamileth Coonterry Coon [facility] on 04/09/23 11:1 0 5mg/dl Yamileth Coonterry Coon 04/09/23 11:10 UA Bilirubin 1 mg/dL Last Edit by Yamileth Coon [facility] on 04/09/23 11: 10 UA Glucose 0 mg/dL Last Edit by Yamileth Coonterry Coon [facility] on 04/09/23 11:10 Results Reviewed Results Reviewed: Laboratory Last Values Urine pH (Auto) 6.0 04/09/23 11:03 Specific Cameron (Auto) 1.030 04/09/23 11:03 Urine Protein (Auto) 15 mg/dL 04/09/23 11:03 Glucose (UA)(Auto) 0 mg/dL 04/09/23 11:03 Urine Ketones (Auto) Positive 04/09/23 11:03 Urine Blood (Auto) 0 Guy/uL 04/09/23 11:03 Urine Nitrite (Auto) Negative 04/09/23 11:03 Urine Bilirubin (Auto) 1 mg/dL 04/09/23 11:03 Urine Urobilinogen (Auto) 0.2 mg/dL 04/09/23 11:03 Leukocyte Esterase (Auto) 0 Kip/uL 04/09/23 11:03 Assessment & Plan Assessment & Plan (1) Prostate cancer: Code(s): C61 - Malignant neoplasm of prostate (2) Spermatocele: Code(s): N43.40 - Spermatocele of epididymis, unspecified Plan In office urinalysis results reviewed with the patient today; as noted above. Will continue with surveillance monitoring of spermatoceles. Patient denies any bothersome urinary issues or concerns at this time. Patient reports to be happy with current voiding parameters. Discussed at length spermatocelectomy versus surveillance monitoring. Discussed risks and benefits of surgical intervention versus surveillance monitoring. Discussed for patient to attempt to obtain previous urology records for continuity of care as medical release form signed during last office visit and fax to [facility] however no medical records were received. Recent PSA results reviewed with the patient today. Will obtain PSA in 4 months. Follow-up in 4 months with lab to be completed prior; or sooner with any issues, concerns, and or questions. Orders: Orders AMB Urinalysis Automated Today R33.9 - Retention of urine, unspecified Prostate Specific Antigen 4 Months C61 - Malignant neoplasm of prostate Testosterone, Free/Total 4 Months C61 - Malignant neoplasm of prostate Prostate Specific Antigen 04/03/23 C61 - Malignant neoplasm of prostate Patient Instructions: The patient had an opportunity to ask questions regarding the treatment plan. All questions were answered. Physical exam, labs, and imaging were discussed and reviewed in detail. As well as risks, benefits, and discussion of treatment choices. No major barriers to understanding were identified. The patient expressed understanding and agreement with the above treatment plan. The patient was made aware they should contact our office by phone for worsening of their current condition, the appearance of new symptoms, or with any questions or concerns. Compliance is encouraged with any medications and follow up testing that is ordered. It is a privilege to be allowed the opportunity to participate in? your urological care.? Again, if you have any questions or concerns If you have any questions or concerns please do not hesitate to contact me. The office is [phone]. This note is constructed using voice recognition software. While every effort has been made to ensure accuracy word processing specialist errors may have been included. Yours sincerely, JOSUE Brown Coding Level of Care Code Est Pt Level 3 (84676) Diagnoses Prostate cancer C61 Spermatocele N43.40
== END 2023-04-09 12:02 | disposition home or self-care (01) ==
PROVIDERS: PCP Nurse Practitioner Family; Visit Provider Nurse Practitioner Family
DX: C61 Malignant neoplasm of prostate (principal); N43.40 Spermatocele of epididymis, unspecified
CPT/HCPCS: 99213

== ENCOUNTER → 2023-04-09 10:47 | Outpatient (BNVA) | payer MEDICARE, MEDICAID, SELFPAY | PROVIDERS: PCP Nurse Practitioner Family; Visit Provider Nurse Practitioner Family | DX: C61 Malignant neoplasm of prostate (principal); N43.40 Spermatocele of epididymis, unspecified | CPT/HCPCS: 81003; 99212 ==

== ENCOUNTER 2023-05-09 11:03 | Outpatient (AMB) | payer MEDICARE, MEDICAID, SELFPAY ==
[2023-05-09 11:04] VITALS: BP 102/70; BMI 30.4
--- NOTE | 2023-05-09 11:04 | MHC.PC.OV ---
Vital Signs 05/09/23 11:04 Height 5 ft 10 in Weight 212 lb BMI 30.4 BP 102/70 Blood Pressure Location Lt brachial Position Sitting Intake Visit Reasons: Transfer From Dr. Morrow / Medications F/U Intake Note: Patient transferring of care/ medication follow up Operator Prefinish Required: No Accompanied by: Self / Same As Patient Allergies No Known Allergies [No Known Allergies*] Allergy (Verified 05/09/23 11:18) Medication List - Last Reconciled 05/09/23 by Shu Vizcaino MD atorvastatin 40 mg PO DAILY cetirizine 10 mg PO DAILY PRN gabapentin 300 mg PO BID metoprolol tartrate 12.5 mg (1/2 x 25 mg) PO BID 90 days naproxen 500 mg PO BID PRN Tobacco use date assessed: 05/09/23 Fall risk assessment: No Falls in past year Last assessed Fall Risk: 05/09/23 Dental Screening Dental Screen Date: 05/09/23 Did you have a dental visit in the last 12 months?: No Did you have a dental problem in the last 6 months where you did not have access to dental care?: No Was dental information given to patient?: Patient has dentist HPI HPI Comments History of Present Illness Details This is a 67-year-old male with supraventricular tachycardia, chronic back pain, mild major depression and history of prostate cancer that comes today to establish care. Supraventricular tachycardia is follow by cardiology and has been stable with metoprolol. Chronic back pain well controlled with gabapentin. Has mild major depression and follows with counseling once a week. Prostate cancer is follow by Urology. Denies any chest pain or shortness of breath. No fever, bowel or bladder incontinence. As per patient had a colonoscopy 20 years ago and will prefer to do Cologuard now. No family history of colon cancer. He also has pure hypercholesterolemia on statins. [facility] Medical History (Updated 05/09/23 @ 11:42 by Shu Vizcaino MD) Anxiety and depression Brain bleed Prostate cancer Myocardial infarct HTN (hypertension) Surgical History S/P lumpectomy, right breast Family History Mother No problems noted. Father No problems noted. Social History Housing: House (Shared living) Alcohol intake: never Patient Tobacco Use Status: Current everyday Tobacco user Tobacco use type: Cigarette Cigarette Packs Per Day: 1.5 Cigarettes Per Day: 30 Years Smoked: 53 e-Cigarette/Vaping Use: Never Used Second Hand Smoke Exposure: Yes service: No Current occupational status: retired Cognitive needs: No Hearing needs: No Vision needs: Yes (glasses) Questionnaire PHQ-9 Over the last 2 weeks, how often have you been bothered by any of the following problems? 1. Little interest or pleasure in doing things: more than half the days 2. Feeling down, depressed, or hopeless: several days 3. Trouble falling or staying asleep, or sleeping too much: several days 4. Feeling tired or having little energy: more than half the days 5. Poor appetite or overeating: not at all 6. Feeling bad about yourself - or that you are a failure or have let yourself or your family down: several days 7. Trouble concentrating on things, such as reading the newspaper or watching television: several days 8. Moving or speaking so slowly that other people could have noticed. Or the opposite - being so fidgety or restless that you have been moving around a lot more than usual: not at all 9. Thoughts that you would be better off or of hurting yourself in some way: not at all Total score: 8 Depression Screening Interpretation: Positive Depression Screening Follow-up: Existing condition and Community Mental Health Worker F/U Depression Screening Done: Yes 85048 - PHQ-9 Billing: Yes Source: Developed by Drs. Kuldeep Banegas, Vesna Gentile, Zaheer Jones and colleagues, with an educational enoc from [employer]. Thrive Questionnaire Date Thrive assessed: 05/09/23 I am a: Patient What is your living situation today?: I have a steady place to live Within the past 12 months, did the food you bought not last and you didn't have the money to get more?: Never true Within the past 12 months, did you worry whether your food would run out before you got money to buy more?: Never true Do you have trouble paying for medicines?: No Do you have trouble getting transportation to medical appointments?: No Do you have trouble paying your heating and electricity bill?: No Do you have trouble taking care of your child, family member or friend?: No Do you have trouble with day-to-day activities such as bathing, preparing meals, shopping, managing finances, etc.?: No Are you currently unemployed and looking for a job?: No Are you interested in more education?: No Please select the resources that you would like help with: None Currently or been in a relationship where the following occur: no concerns reported THRIVE Score: 0 AUDIT C Alcohol Use Questionnaire (AUDIT-C) 1. How often do you have a drink containing alcohol?: Never Total Score: 0 Score Reviewed/Action Taken: No RACHEAL-7 AMB Questionnaire RACHEAL-7 Date RACHEAL - 7 assessed: 05/09/23 Feeling nervous, anxious, or on edge: 1 = Several days Not being able to stop or control worryin = Several days Worrying too much about different things: 0 = Not at all Trouble relaxin = Several days Being so restless that it is hard to sit still: 0 = Not at all Becoming easily annoyed or irritable: 1 = Several days Feeling afraid as if something awful might happen: 1 = Several days Total RACHEAL-7 score (0-4 normal; 5-9 mild; 10-14 moderate; 15-21 severe): 5 Source: Developed by Drs. Kuldeep Banegas, Vesna Gentile, Zaheer Jones and colleagues, with an educational enoc from [employer]. RACHEAL-7 Assessment Billing RACHEAL-7 Assessment Tool: RACHEAL-7 Assessment 39749 Review of Systems Const All systems reviewed & are unremarkable except as noted in HPI and below Eyes Reports no additional complaints, Denies change in vision and Denies other visual disturbances Card Denies chest pain at rest, Denies chest pain with activity, Denies edema, Denies irregular heart rhythm, Denies claudication, Denies dyspnea, Denies dyspnea on exertion, Denies orthopnea, Denies paroxysmal nocturnal dyspnea and Denies slow heart rate Resp Denies cough, Denies dyspnea and Denies dyspnea on exertion GI Denies abdominal pain, Denies change in bowel habits, Denies excessive flatus, Denies nausea and Denies vomiting Denies urinary hesitancy, Denies urinary incontinence and Denies urinary urgency Musc Reports back pain, Denies atrophy, Denies deformity and Denies limited range of motion Physical exam (Primary Care) Vital Signs: Last Vital Signs BP 102/70 05/09/23 11:04 BMI result Body Mass Index 30.4 Tobacco/Smoking Status: Tobacco use Status Tobacco use date assessed 05/09/23 05/09/23 11:16 Patient Tobacco Use Status Current everyday Tobacco 05/09/23 11:16 Tobacco use type Cigarette 05/09/23 11:16 e-Cigarette/Vaping Use Never Used 05/09/23 11:16 PHQ-9: PHQ-9 Score PHQ-9: Total score 8 05/09/23 11:20 Depression Screening Interpretation: Positive Depression Screening Follow-up: Existing condition and Community Mental Health Worker F/U Thrive Assessment: Date of Thrive Assessment Date Thrive assessed 05/09/23 05/09/23 11:16 Currently or been in a relationship where the following occur: no concerns reported Resp Effort & Inspection: normal respiratory effort Auscultation: clear to auscultation bilaterally Cardio Jugular venous distension: no JVD Rate: regular rate Rhythm: regular rhythm Heart sounds: S1 normal heart sound present and S2 normal heart sound present Extrem General: Yes full ROM Assessment and Plan Assessment & Plan (1) Mild major depression: Code(s): F32.0 - Major depressive disorder, single episode, mild Plan: Continue counseling. (2) SVT (supraventricular tachycardia): Code(s): I47.1 - Supraventricular tachycardia Plan: Continue metoprolol. Follow-up with Cardiology. (3) Prostate cancer: Code(s): C61 - Malignant neoplasm of prostate Plan: Follow-up with Urology. (4) Chronic back pain: Code(s): M54.9 - Dorsalgia, unspecified; G89.29 - Other chronic pain Plan: Continue gabapentin. (5) Pure hypercholesterolemia: Code(s): E78.00 - Pure hypercholesterolemia, unspecified Plan: Continue statins. Repeat lipid panel. Orders: Orders Lipid Panel Today E78.5 - Hyperlipidemia, unspecified Comprehensive [place]. Panel Fast Today I47.1 - Supraventricular tachycardia Referrals Cologuard Test Z12.11 - Encounter for screening for malignant neoplasm of colon, Z12.12 - Encounter for screening for malignant neoplasm of rectum Medications: Refilled atorvastatin 40 mg PO DAILY 30 tabs 3RF cetirizine 10 mg PO DAILY PRN 30 tabs 3RF allergies gabapentin 300 mg PO BID 60 caps 3RF G89.29 - Other chronic pain, M54.9 - Dorsalgia, unspecified metoprolol tartrate 12.5 mg (1/2 x 25 mg) PO BID 90 days 90 tabs 3RF I47.1 - Supraventricular tachycardia Coding Level of Care Code Est Pt Level 4 (77015) Diagnoses Mild major depression F32.0 SVT (supraventricular tachycardia) I47.1 Prostate cancer C61 Chronic back pain M54.9; G89.29 Pure hypercholesterolemia E78.00 Additional Codes RACHEAL-7 Assessment Billing - RACHEAL-7 Assessment Tool: RACHEAL-7 Assessment 60406 ([id number]) Time Spent (min) 21
== END 2023-05-09 11:46 | disposition home or self-care (01) ==
PROVIDERS: PCP Internal Medicine; Visit Provider Internal Medicine
DX: I47.10 Supraventricular tachycardia, unspecified (principal); M54.9 Dorsalgia, unspecified; F33.0 Major depressive disorder, recurrent, mild; C61 Malignant neoplasm of prostate; E78.00 Pure hypercholesterolemia, unspecified
CPT/HCPCS: 99214

== ENCOUNTER 2023-05-21 10:08 | Outpatient (REF) | payer MEDICARE, MEDICAID, SELFPAY ==
[2023-05-21 11:59] LABS: Alanine Aminotransferase 26 U/L (0-40); Albumin Level 4.1 g/dL (3.5-5.0); Alkaline Phosphatase 46 U/L (39-117); Anion Gap 12 (12-20); Aspartate Amino Transferase 23 U/L (5-37); Bilirubin Total 0.7 mg/dL (0.0-1.0); Blood Urea Nitrogen 13 mg/dL (9-16); Calcium 9.2 mg/dL (8.4-10.2); Carbon Dioxide 27 mmol/L (22-29); Chloride 108 mmol/L (96-108); Cholesterol 139 mg/dL (<200); Estimated Glomerular Filt Rate > 60; Glucose Fasting 127 mg/dL (60-99); HDL Cholesterol 38 mg/dL (>40); LDL Cholesterol Calculated 77 mg/dL (<100); Potassium 4.8 mmol/L (3.3-5.1); Sodium 142 mmol/L (135-145); Total Protein 6.8 g/dL (6.5-8.0); Triglycerides 124 mg/dL (<150)
== END 2023-05-21 10:09 | disposition home or self-care (01) ==
LOC: HO.LAB 10:08
PROVIDERS: PCP Internal Medicine; Visit Provider Internal Medicine
DX: E78.5 Hyperlipidemia, unspecified (principal); I47.10 Supraventricular tachycardia, unspecified
CPT/HCPCS: 36415; 80053; 80061

== ENCOUNTER 2023-05-21 10:34 | Outpatient (AMB) | payer MEDICARE, MEDICAID, SELFPAY ==
[2023-05-21 10:41] VITALS: BP 110/68; BMI 31.1
--- NOTE | 2023-05-21 10:41 | A.OFFPC_ITS ---
Vital Signs 05/21/23 10:41 Height 5 ft 10 in Weight 217 lb BMI 31.1 BP 110/68 Blood Pressure Location Lt brachial Position Sitting Intake Visit Reasons: f/u labs Intake Note: Patient here for a follow up labs Certified Alcohol Drug Counselor Required: No Accompanied by: Self / Same As Patient Allergies No Known Allergies [No Known Allergies*] Allergy (Verified 05/21/23 10:52) Medication List - Last Reconciled 05/21/23 by Shu Vizcaino MD atorvastatin 40 mg PO DAILY cetirizine 10 mg PO DAILY PRN gabapentin 300 mg PO BID metoprolol tartrate 12.5 mg (1/2 x 25 mg) PO BID 90 days naproxen 500 mg PO BID PRN Tobacco use date assessed: 05/09/23 Fall risk assessment: 1 Fall in past year Last assessed Fall Risk: 05/21/23 Dental Screening Dental Screen Date: 05/09/23 HPI HPI Comments History of Present Illness Details This is a 67-year-old male with mild major depression, pure hypercholesterolemia, allergic rhinitis, history of prostate cancer and chronic back pain that comes today for follow-up on recent labs which are still pending. He declines the need for counseling or treatment for his mild major depression. On statins for cholesterol. Allergic rhinitis stable with antihistamines as needed. Prostate cancer is follow by Urology. On gabapentin for his chronic back pain which seems to control the pain well. No chest pain or shortness of breath. He did admit that he ate few strawberries before having the blood work today therefore it was not fasting. [facility] Medical History (Updated 05/21/23 @ 12:18 by Shu Vizcaino MD) Anxiety and depression Brain bleed Prostate cancer Myocardial infarct HTN (hypertension) Surgical History S/P lumpectomy, right breast Family History Mother No problems noted. Father No problems noted. Social History Housing: House Alcohol intake: never Patient Tobacco Use Status: Current everyday Tobacco user Tobacco use type: Cigarette Cigarette Packs Per Day: 1.5 Cigarettes Per Day: 30 Years Smoked: 53 Packs Per Year: 80 Packs per year/per ci.50 e-Cigarette/Vaping Use: Never Used Second Hand Smoke Exposure: Yes service: No Current occupational status: retired Cognitive needs: No Hearing needs: No Vision needs: Yes (glasses) Questionnaire Thrive Questionnaire Date Thrive assessed: 05/09/23 RACHEAL-7 AMB Questionnaire RACHEAL-7 Date RACHEAL - 7 assessed: 05/09/23 Source: Developed by Drs. Kuldeep Banegas, Vesna Gentile, Zaheer Jones and colleagues, with an educational enoc from [employer]. Review of Systems Const All systems reviewed & are unremarkable except as noted in HPI and below Card Denies chest pain at rest, Denies chest pain with activity, Denies edema, Denies irregular heart rhythm, Denies claudication, Denies dyspnea, Denies dyspnea on exertion, Denies orthopnea, Denies paroxysmal nocturnal dyspnea and Denies slow heart rate Resp Denies cough, Denies dyspnea and Denies dyspnea on exertion GI Denies abdominal pain, Denies change in bowel habits, Denies excessive flatus, Denies nausea and Denies vomiting Denies urinary hesitancy, Denies urinary incontinence and Denies urinary urgency Aller/Immun Denies urticaria Physical exam (Primary Care) Vital Signs: Last Vital Signs BP 110/68 05/21/23 10:41 BMI result Body Mass Index 31.1 Tobacco/Smoking Status: Tobacco use Status Tobacco use date assessed 05/09/23 05/21/23 10:48 Patient Tobacco Use Status Current everyday Tobacco 05/21/23 10:48 Tobacco use type Cigarette 05/21/23 10:48 e-Cigarette/Vaping Use Never Used 05/21/23 10:48 Thrive Assessment: Date of Thrive Assessment Date Thrive assessed 05/09/23 05/21/23 10:48 Resp Effort & Inspection: normal respiratory effort Auscultation: clear to auscultation bilaterally Cardio Jugular venous distension: no JVD Rate: regular rate Rhythm: regular rhythm Heart sounds: S1 normal heart sound present and S2 normal heart sound present Extrem General: Yes full ROM Assessment and Plan Assessment & Plan (1) Mild major depression: Code(s): F32.0 - Major depressive disorder, single episode, mild Plan: Declines the need for counseling or medication. (2) Pure hypercholesterolemia: Code(s): E78.00 - Pure hypercholesterolemia, unspecified Plan: Continue statins. (3) Allergic rhinitis: Code(s): J30.9 - Allergic rhinitis, unspecified Plan: Continue antihistamines as needed. (4) Prostate cancer: Code(s): C61 - Malignant neoplasm of prostate Plan: Follow-up with Urology. (5) Chronic back pain: Code(s): M54.9 - Dorsalgia, unspecified; G89.29 - Other chronic pain Plan: Continue gabapentin. Coding Level of Care Code Est Pt Level 4 (81283) Diagnoses Mild major depression F32.0 Pure hypercholesterolemia E78.00 Allergic rhinitis J30.9 Prostate cancer C61 Chronic back pain M54.9; G89.29 Time Spent (min) 20
== END 2023-05-21 11:09 | disposition home or self-care (01) ==
PROVIDERS: PCP Internal Medicine; Visit Provider Internal Medicine
DX: F32.0 Major depressive disorder, single episode, mild (principal); C61 Malignant neoplasm of prostate; E78.00 Pure hypercholesterolemia, unspecified; J30.9 Allergic rhinitis, unspecified; M54.9 Dorsalgia, unspecified; G89.29 Other chronic pain
CPT/HCPCS: 99214

== ENCOUNTER 2023-07-09 09:57 | Outpatient (AMB) | payer MEDICARE, MEDICAID, SELFPAY ==
[2023-07-09 10:23] VITALS: BP 100/50; PULSE 77; BMI 30.8
--- NOTE | 2023-07-09 10:23 | MHC.OFFVIS ---
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 Allergies No Known Allergies [No Known Allergies*] Allergy (Verified 07/09/23 10:25) Medication List - Last Reconciled 07/09/23 by ANABEL Dos Santos atorvastatin 40 mg PO DAILY cetirizine 10 mg PO DAILY PRN gabapentin 300 mg PO BID metoprolol tartrate 12.5 mg (1/2 x 25 mg) PO BID 90 days naproxen 500 mg PO BID PRN HPI HPI 4 mth fu: Details: Wolfgang is a 67-year-old male past medical history of hypertension, SVT who was seen in the emergency room on 08/05/2022 for palpitations, SVT requiring adenosine x2 then drop in blood pressure and was cardioverted with successful conversion to sinus rhythm. He was referred to Cardiology in follow-up, cardiac testing was done and he was referred to electrophysiology for ablation. Today he reports that he had a brief episode of his heart palpitations recently. He said he felt it come on in he laid down to rest. He believes he fell asleep and when he awoke his heart rhythm was back to normal. He has not had any recurrent ER visits or sustained rapid heartbeats. He has been seen by the appraiser land and has an ablation scheduled for 08/08/2023. At this time he continues on metoprolol b.i.d. but feels that it is making him fatigued. He is hoping to come off his medication shortly after his ablation. No chest discomfort at rest or with activity. No shortness of breath, palpitations, presyncope, syncope, PND, orthopnea or edema. He hopes to start an exercise program once his heart rhythm issues are controlled. He admits to being mostly sedentary. [facility] Medical History Anxiety and depression Brain bleed Prostate cancer Myocardial infarct HTN (hypertension) Surgical History S/P lumpectomy, right breast Family History Mother No problems noted. Father No problems noted. Social History Housing: House Alcohol intake: never Patient Tobacco Use Status: Current everyday Tobacco user Tobacco use type: Cigarette Cigarette Packs Per Day: 1.5 Cigarettes Per Day: 30 Years Smoked: 53 e-Cigarette/Vaping Use: Never Used Second Hand Smoke Exposure: Yes service: No Current occupational status: retired Cognitive needs: No Hearing needs: No Vision needs: Yes (glasses) Review of Systems ENT Reports dizziness Card Denies chest pain, Denies chest pain at rest, Denies chest pain with activity, Denies rapid heart rate, Denies pedal edema, Denies edema, Denies leg edema, Denies lightheadedness, Denies palpitations, Denies dyspnea, Denies dyspnea on exertion and Denies orthopnea Resp Denies cough, Denies dyspnea and Denies dyspnea on exertion GI Denies hematochezia and Denies change in stool character Musc Denies abnormal gait, Reports limited range of motion, Reports muscle cramps, Denies muscle weakness, Denies numbness, Denies radiating pain into limb, Denies stiffness and Denies tingling Neuro Denies abnormal gait, Reports dizziness, Denies numbness and Denies tingling Endo Denies palpitations Physical Exam Vital Signs: Last Vital Signs Pulse 77 07/09/23 10:23 BP 100/50 L 07/09/23 10:23 BMI result Body Mass Index 30.8 Const General: cooperative, healthy appearing, comfortable and no acute distress Orientation/consciousness: patient oriented x3 Neck Neck: Yes normal visual inspection and Yes no JVD Chest Chest palpation & inspection: normal inspection of the chest Resp Effort & Inspection: normal respiratory effort Auscultation: clear to auscultation bilaterally, no rales, no rhonchi and no wheezes Cardio Jugular venous distension: no JVD Rate: regular rate Rhythm: regular rhythm Heart sounds: S1 normal heart sound present, S2 normal heart sound present, no murmurs and no rubs Neuro General: patient oriented x3 Extrem General: Yes normal to inspection and No no pedal edema Psych Appearance: grossly normal Mental Status: mental status grossly normal Speech and movement: Normal speech and movement present Assessment & Plan Assessment & Plan (1) SVT (supraventricular tachycardia): Code(s): I47.1 - Supraventricular tachycardia Category: Medical Plan: Reported history of SVT without treatment in past. He did require ER visit 08/05/2022 for episode of SVT, symptomatic. He was treated with adenosine times 2 then, became more unstable and had cardioversion with successful conversion back to sinus rhythm. EKGs showing SVT not available however rhythm strips from EMS reviewed by Dr. 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 He underwent a cardiac event monitor on 09/26/2022 which was for 30 days however he only wore on 8 days showing sinus rhythm with average heart rate 69, heart rate range 51 to 136, no atrial fibrillation, rare SVE and ve. Echocardiogram done 09/26/2022 showed EF 60%, no valve abnormalities and No reported wall motion abnormality. Exercise stress echo done 11/06/2022 showed exercise 3 minute with report of chest discomfort and moderate shortness of breath, no EKG changes and no echo evidence of ischemia. He was seen in [facility] ER on 11/11/2022 with recurrent palpitations. He received 2 doses of adenosine with conversion back to sinus rhythm. He did have another brief episode of SVT recently which resolved with out additional med or treatment. He has been seen by Dr. Aguilera for EP and is scheduled for a SVT ablation on 08/08/2023. He is very excited to have this procedure. He has been dealing with heart palpitations for many years. Instructed to continue on metoprolol at this time. Reviewed reduction in any caffeinated beverages, vagal maneuvers. ED care if needed. Cardiology follow-up 3 months, sooner if needed. (2) HTN (hypertension): Code(s): I10 - Essential (primary) hypertension Category: Medical Qualifiers: Hypertension type: unspecified Qualified Code(s): I10 - Essential (primary) hypertension Plan: Low side today. Asymptomatic. Plan Time spent on chart review, documentation, interview assess Coding Level of Care Code Est Pt Level 3 (43110) Diagnoses SVT (supraventricular tachycardia) I47.1 Hypertension, unspecified type I10 Hypertension type: unspecified Time Spent (min) 24
== END 2023-07-09 10:58 | disposition home or self-care (01) ==
PROVIDERS: PCP Internal Medicine; Visit Provider Nurse Practitioner Family
DX: I47.10 Supraventricular tachycardia, unspecified (principal); I10 Essential (primary) hypertension
CPT/HCPCS: 99213

== ENCOUNTER → 2023-07-09 09:57 | Outpatient (BNVA) | payer MEDICARE, MEDICAID, SELFPAY | PROVIDERS: PCP Internal Medicine; Visit Provider Nurse Practitioner Family | DX: I47.10 Supraventricular tachycardia, unspecified (principal); I10 Essential (primary) hypertension | CPT/HCPCS: 99212 ==

== ENCOUNTER 2023-10-03 11:46 | Outpatient (AMB) | payer MEDICARE, MEDICAID, SELFPAY ==
--- NOTE | 2023-10-03 12:21 | AM.OFFVISMDC ---
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 Last colonoscopy was in 2005 and he has Cologuard but does not understand instructions and prefers not to do colonoscopy. Ppp handed to patient. [place] of care was done today. He complains of blurry vision and would like to see Ophthalmology. [facility] Medical History (Updated 10/03/23 @ 15:19 by Shu Vizcaino MD) Anxiety and depression Brain bleed Prostate cancer Myocardial infarct HTN (hypertension) Surgical History S/P lumpectomy, right breast Family History Mother No problems noted. Father No problems noted. Social History Housing: House Alcohol intake: never Patient Tobacco Use Status: Current everyday Tobacco user Tobacco use type: Cigarette Cigarette Packs Per Day: 1.5 Cigarettes Per Day: 30 Years Smoked: 53 e-Cigarette/Vaping Use: Never Used Second Hand Smoke Exposure: Yes service: No Current occupational status: retired Cognitive needs: No Hearing needs: No Vision needs: Yes (glasses) Questionnaire Medicare Wellness Checkup What [age] What gender do you identify with?: male During the past 4 weeks, how much have you been bothered by emotional problems such as feeling anxious, depressed, irritable, sad or downhearted, and blue?: moderately During the past 4 weeks, has your physical & emotional health limited your social activities with family, friends, neighbors, or groups?: slightly During the past 4 weeks, how much bodily pain have you generally had?: mild pain During the past 4 weeks, was someone available to help you if you needed & wanted help?: yes, some During the past 4 weeks, what was the hardest physical activity you could do for at least 2 minutes?: light Can you get to places out of walking distance without help? (For eg., can you travel alone on buses, taxis or drive your car?): Yes Can you go shopping for groceries or clothes without someone's help?: Yes (some) Can you prepare your own meals?: Yes (some) Can you do your housework without help?: Yes (some) Because of any health problems, do you need the help of another person with your personal care needs such as eating, bathing, dressing or getting around the house?: Yes Can you handle your own money without help?: Yes During the past 4 weeks, how would you rate your health in general?: good During the past 4 weeks how have things been going for you?: pretty well Are you having difficulties driving your car?: not applicable, I don't use a car Do you always fasten your seat belt when you are in a car?: yes, usually During past 4 weeks, have you been bothered by the following: never: Sexual problems?, seldom: Teeth or denture problems? and Problems using the telephone? and sometimes: Falling or dizzy when standing up, Trouble eating well? and Tiredness or fatigue? Have you fallen 2 or more times in the past year?: Yes Are you afraid of falling?: No Are you a smoker?: yes, and I might quit During the past 4 weeks, how many drinks of wine, beer, or other alcoholic beverages did you have?: no alcohol at all Do you exercise for about 20 minutes 3 or more times a week?: no, I usually do not exercise this much Have you been given information to help with the following?: no: Hazards in your house that might hurt you? and no: Keeping track of your medications? How often do you have trouble taking medicines the way you have been told to take them?: I always take medicine as prescribed How confident are you that you can control & manage most of your health problems?: somewhat confident What is your race?: White Mini Mental State Exam (MMSE) Orientation What is the (year) (season) (date) (day) (month)?: year, season, date, day and month Where are we (state) (county) (town or city) (hospital) (floor)?: state, county, town or city, hospital/clinic and floor Registration Name of 3 unrelated objects clearly and slowly, then ask patient to repeat all 3 of them. (1st repeat determines score. Make sure they can repeat all three): object 1, object 2 and object 3 Attention & Calculation (CHOOSE ONE) Spell WORLD backwards (DLROW): 5 letters Recall Ask patient to repeat the 3 items from question #3.: object 1, object 2 and object 3 Language Show patient a wristwatch & ask what it is. Repeat for pencil.: watch and pencil Ask the patient to repeat the phrase 'No ifs, ands, or buts' after you.: correct Ask the patient to 'take a piece of paper with their right hand' 'fold paper in half' 'place paper on floor': take paper in right hand, fold paper in half and place paper on floor Print the sentence 'CLOSE YOUR EYES' on a piece. If patient actually closes eyes then score.: followed written direction Give patient a blank piece of paper & ask to write a sentence. Score if it contains a noun & verb.: sentence contains subject and verb Score Score: 29 Activity of Daily Living Bathing - sponge bath, tub bath or shower: receives no assistance (gets in/out by self, if usual bathing means Dressing - getting clothes from closets & drawers, including inner/outer garments & fasteners.: gets clothes & gets completely dressed without help Toileting - going to the 'toilet room' for urine/bowel elimination & cleaning self/arranging clothes: goes to toilet room, cleans self, arranges clothes without help Transfer: moves in & out of bed and chair without help (may use support object) Continence: has occasional 'accidents' Feeding: feeds self without help Total Score: 0 Information obtained from: patient Using telephone: independent Traveling: independent Shopping: independent Preparing meals: independent Housework: independent Taking medicine: independent Managing money: independent PHQ-9 Over the last 2 weeks, how often have you been bothered by any of the following problems? 1. Little interest or pleasure in doing things: not at all 2. Feeling down, depressed, or hopeless: not at all 3. Trouble falling or staying asleep, or sleeping too much: several days 4. Feeling tired or having little energy: not at all 5. Poor appetite or overeating: not at all 6. Feeling bad about yourself - or that you are a failure or have let yourself or your family down: not at all 7. Trouble concentrating on things, such as reading the newspaper or watching television: not at all 8. Moving or speaking so slowly that other people could have noticed. Or the opposite - being so fidgety or restless that you have been moving around a lot more than usual: not at all 9. Thoughts that you would be better off or of hurting yourself in some way: not at all Total score: 1 Depression Screening Interpretation: Positive Depression Screening Follow-up: Existing condition and Follow-up Visit Requested Depression Screening Done: Yes Source: Developed by Drs. Kuldeep Banegas, Zaheer Barbosa and colleagues, with an educational enoc from [employer]. AUDIT C Alcohol Use Questionnaire (AUDIT-C) 1. How often do you have a drink containing alcohol?: Never Total Score: 0 Score Reviewed/Action Taken: No Thrive Questionnaire Date Thrive assessed: 05/09/23 RACHEAL-7 AMB Questionnaire RACHEAL-7 Date RACHEAL - 7 assessed: 05/09/23 Source: Developed by Drs. Kuldeep Banegas, Zaheer Barbosa and colleagues, with an educational enoc from [employer]. Review of Systems Const All systems reviewed & are unremarkable except as noted in HPI and below Card Denies chest pain at rest, Denies chest pain with activity, Denies edema, Denies irregular heart rhythm, Denies claudication, Denies dyspnea, Denies dyspnea on exertion, Denies orthopnea, Denies paroxysmal nocturnal dyspnea and Denies slow heart rate Resp Denies cough, Denies dyspnea and Denies dyspnea on exertion Physical Exam Vital Signs: Last Vital Signs BP 110/64 10/03/23 12:28 BMI result Body Mass Index 30.3 Const Orientation/consciousness: patient oriented x3 Resp Effort & Inspection: normal respiratory effort Auscultation: clear to auscultation bilaterally Cardio Jugular venous distension: no JVD Rate: regular rate Rhythm: regular rhythm Heart sounds: S1 normal heart sound present and S2 normal heart sound present Neuro General: patient oriented x3 and no focal motor deficits Romberg Test: Negative Extrem General: Yes full ROM Immunizations pneumoc 20-juani conj-dip cr(PF) 0.5 mL IM syringe Performing Provider: Shu Vizcaino MD Performing Location: [facility] Administered by: LILIA Trejo on 10/03/23 13:18 Dose Route Admin Location Dispensed Lot Number Expiration Date NDC Test Inspection Engineer 0.5 mL IM Left Deltoid 0.5 mL [id number] 07/06/24 4891-3383-02 WYETH/PFIZER VIS Given Date VIS Provided VIS Publication Date 10/03/23 Single Vaccine 21 Eligibility Eligibility Date Funding Source Not [facility] Eligible 10/03/23 Private Assessment & Plan Assessment & Plan (1) Encounter for Medicare annual wellness exam: Code(s): Z00.00 - Encounter for general adult medical examination without abnormal findings Plan: Repeat in a year. (2) Blurry vision: Code(s): H53.8 - Other visual disturbances Plan: Referred to Ophthalmology. (3) Prostate cancer: Code(s): C61 - Malignant neoplasm of prostate Plan: Follow-up with Urology. Orders: Orders Lipid Panel Today E78.00 - Pure hypercholesterolemia, unspecified, E78.5 - Hyperlipidemia, unspecified Comprehensive [place]. Panel Fast Today E78.00 - Pure hypercholesterolemia, unspecified Pneumococcal 20 Immunization Today Z23 - Encounter for immunization Referrals Open Access Screening Colonoscopy Referral Z12.11 - Encounter for screening for malignant neoplasm of colon Ophthalmology Referral H53.8 - Other visual disturbances Quality Reporting (2019) Depression/Bipolar (159/160/161/177) PHQ-9: Total score: 1 Coding Level of Care Code Medicare First (G0438) Est Pt Level 3 (22919) Diagnoses Encounter for Medicare annual wellness exam Z00.00 Blurry vision H53.8 Prostate cancer C61 Time Spent (min) 35
[2023-10-03 12:28] VITALS: BP 110/64; BMI 30.3
== END 2023-10-03 13:14 | disposition home or self-care (01) ==
PROVIDERS: PCP Internal Medicine; Visit Provider Internal Medicine
DX: Z00.00 Encounter for general adult medical examination without abnormal findings (principal); H53.8 Other visual disturbances; C61 Malignant neoplasm of prostate; Z23 Encounter for immunization
CPT/HCPCS: 90471; 90677; 99213; G0438; G0439

== ENCOUNTER 2023-10-15 12:32 | Outpatient (AMB) | payer MEDICARE, MEDICAID, SELFPAY ==
[2023-10-15 12:55] VITALS: BP 100/62; PULSE 67; BMI 30.9
--- NOTE | 2023-10-15 12:55 | MHC.OFFVIS ---
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 Today he reports that he was scheduled for an SVT ablation on 08/08/2023 however when he went to the appointment he changed his mind and left prior to treatment. He tells me he did not realize he would be under anesthesia for 2 hours and he is afraid of being put to sleep. 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 Since last visit he has not had any significant heart palpitations, no ER visits. He has been taking his metoprolol as directed. No chest discomfort at rest or with activity. No shortness of breath, palpitations, presyncope, syncope, PND, orthopnea or edema. He admits to being mostly sedentary. [facility] Medical History Anxiety and depression Brain bleed Prostate cancer Myocardial infarct HTN (hypertension) Surgical History S/P lumpectomy, right breast Family History Mother No problems noted. Father No problems noted. Social History Housing: House Alcohol intake: never Patient Tobacco Use Status: Current everyday Tobacco user Tobacco use type: Cigarette Cigarette Packs Per Day: 1.5 Cigarettes Per Day: 30 Years Smoked: 53 e-Cigarette/Vaping Use: Never Used Second Hand Smoke Exposure: Yes service: No Current occupational status: retired Cognitive needs: No Hearing needs: No Vision needs: Yes (glasses) Review of Systems Const All systems reviewed & are unremarkable except as noted in HPI and below ENT Denies dizziness Card Denies chest pain, Denies chest pain at rest, Denies chest pain with activity, Denies rapid heart rate, Denies pedal edema, Denies edema, Denies leg edema, Denies lightheadedness, Denies palpitations, Denies dyspnea, Denies dyspnea on exertion and Denies orthopnea Resp Denies cough, Denies dyspnea and Denies dyspnea on exertion GI Denies hematochezia and Denies change in stool character Musc Denies abnormal gait, Denies limited range of motion, Denies muscle cramps, Denies muscle weakness, Denies numbness, Denies radiating pain into limb, Denies stiffness and Denies tingling Neuro Denies abnormal gait, Denies dizziness, Denies numbness and Denies tingling Endo Denies palpitations Physical Exam Vital Signs: Last Vital Signs Pulse 67 10/15/23 12:55 BP 100/62 10/15/23 12:55 BMI result Body Mass Index 30.9 Const General: cooperative, healthy appearing, comfortable and no acute distress Orientation/consciousness: patient oriented x3 Neck Neck: Yes normal visual inspection and Yes no JVD Chest Chest palpation & inspection: normal inspection of the chest Resp Effort & Inspection: normal respiratory effort Auscultation: clear to auscultation bilaterally, no rales, no rhonchi and no wheezes Cardio Jugular venous distension: no JVD Rate: regular rate Rhythm: regular rhythm Heart sounds: S1 normal heart sound present, S2 normal heart sound present, no murmurs and no rubs Neuro General: patient oriented x3 Extrem General: Yes normal to inspection and No no pedal edema Psych Appearance: grossly normal Mental Status: mental status grossly normal Speech and movement: Normal speech and movement present Office Procedures EKG Details: Today, read by me, sinus rhythm, low-voltage QRS, rate 67, QTC 426 milliseconds [id number], Complete Assessment & Plan Assessment & Plan (1) SVT (supraventricular tachycardia): Code(s): I47.1 - Supraventricular tachycardia Category: Medical Plan: Reported history of SVT without treatment in past. He did require ER visit 08/05/2022 for episode of SVT, symptomatic. He was treated with adenosine times 2 then, became more unstable and had cardioversion with successful conversion back to sinus rhythm. EKGs showing SVT not available however rhythm strips from EMS reviewed by Dr. 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 He underwent a cardiac event monitor on 09/26/2022 which was for 30 days however he only wore on 8 days showing sinus rhythm with average heart rate 69, heart rate range 51 to 136, no atrial fibrillation, rare SVE and ve. Echocardiogram done 09/26/2022 showed EF 60%, no valve abnormalities and No reported wall motion abnormality. Exercise stress echo done 11/06/2022 showed exercise 3 minute with report of chest discomfort and moderate shortness of breath, no EKG changes and no echo evidence of ischemia. He was seen in [facility] ER on 11/11/2022 with recurrent palpitations. He received 2 doses of adenosine with conversion back to sinus rhythm. He has been seen by Dr. Aguilera for EP and was scheduled for a SVT ablation on 08/08/2023, however he changed his mind about the procedure once he heard that he would be under anesthesia 2 hours. He has now had time to think about it and he is more willing to proceed. Is waiting for a call back from the electrophysiology office to reschedule his ablation appointment. Since last visit he has not had recurrent heart palpitations and no ER visits. Instructed to continue on metoprolol at this time. Reviewed reduction in any caffeinated beverages, vagal maneuvers. ED care if needed. Cardiology follow-up 4-5 months, sooner if needed -anticipate this to be post ablation. (2) HTN (hypertension): Code(s): I10 - Essential (primary) hypertension Category: Medical Qualifiers: Hypertension type: unspecified Qualified Code(s): I10 - Essential (primary) hypertension Plan: Low side today. Asymptomatic. Plan Time spent on chart review, documentation, interview assess Coding Level of Care Code Est Pt Level 3 (03591) Diagnoses SVT (supraventricular tachycardia) I47.1 Hypertension, unspecified type I10 Hypertension type: unspecified CPT Codes EKG - CPT: 89156-[id number], Complete ([id number]) Time Spent (min) 24
== END 2023-10-15 13:26 | disposition home or self-care (01) ==
PROVIDERS: PCP Internal Medicine; Visit Provider Nurse Practitioner Family
DX: I47.10 Supraventricular tachycardia, unspecified (principal)
CPT/HCPCS: 93010; 99213

== ENCOUNTER → 2023-10-15 12:32 | Outpatient (BNVA) | payer MEDICARE, MEDICAID, SELFPAY | PROVIDERS: PCP Internal Medicine; Visit Provider Nurse Practitioner Family | DX: I47.19 Other supraventricular tachycardia (principal); I10 Essential (primary) hypertension | CPT/HCPCS: 93005; 99212 ==

== ENCOUNTER 2024-03-10 12:43 | Outpatient (AMB) | payer MEDICARE, MEDICAID, SELFPAY ==
--- NOTE | 2024-03-10 13:01 | MHC.OFFVIS ---
Vital Signs 03/10/24 13:07 Height 5 ft 10 in Weight 209 lb 7.026 oz BMI 30.0 BP 110/64 Blood Pressure Location Lt brachial Position Sitting Pulse 81 Pulse Source Pulse Oximeter Intake Visit Reasons: 5 mth f/up Intake Note: 5 mth f/up Speech Pathologist Assistant Required: No Accompanied by: Self / Same As Patient Allergies No Known Allergies [No Known Allergies*] Allergy (Verified 10/15/23 12:58) Medication List - Last Reconciled 03/10/24 by Lady Jacobs NP-C atorvastatin 40 mg PO DAILY cetirizine 10 mg PO DAILY PRN gabapentin 300 mg PO BID metoprolol tartrate 12.5 mg (1/2 x 25 mg) PO BID 90 days naproxen 500 mg PO BID PRN HPI HPI 5 mth f/up: Details: Wolfgang is a 68-year-old male past medical history of hypertension, SVT requiring adenosine and cardioversion in past who presents for follow up. Today he reports that he was scheduled for an SVT ablation but he was ill and they had to cancel. He is now rescheduled for May 2024. He has not had any recurrent SVT or heart palpitations since his last visit here in October. He is taking his metoprolol as directed. He denies chest pains at rest or with activity. No shortness of breath, PND, orthopnea or edema. He reports having difficulty with sleep and wakes up frequently in the night. He is noted to be mildly forgetful at this visit -unable to recall upcoming appointments, his plan of care and what it is for. He blames this on his lack of sleep. He has been mostly sedentary. His daughter is here in the waiting room today. [facility] Medical History Anxiety and depression Brain bleed Prostate cancer Myocardial infarct HTN (hypertension) Surgical History S/P lumpectomy, right breast Family History Mother No problems noted. Father No problems noted. Social History Housing: House Alcohol intake: never Patient Tobacco Use Status: Current everyday Tobacco user Tobacco use type: Cigarette Cigarette Packs Per Day: 1.5 Cigarettes Per Day: 30 Years Smoked: 53 e-Cigarette/Vaping Use: Never Used Second Hand Smoke Exposure: Yes service: No Current occupational status: retired Cognitive needs: No Hearing needs: No Vision needs: Yes (glasses) Review of Systems Const Details: not sleeping well - forgetful All systems reviewed & are unremarkable except as noted in HPI and below Card Denies chest pain, Denies chest pain at rest, Denies chest pain with activity, Denies rapid heart rate, Denies irregular heart rhythm, Denies palpitations, Denies dyspnea on exertion and Denies orthopnea Resp Denies dyspnea on exertion Denies no additional complaints Musc Denies no additional complaints Endo Denies palpitations Physical Exam Vital Signs: Last Vital Signs Pulse 81 03/10/24 13:07 BP 110/64 03/10/24 13:07 BMI result Body Mass Index 30.0 Const Other: mildly forgetful of dates, upcoming plan of care General: cooperative, healthy appearing, comfortable and no acute distress Orientation/consciousness: patient oriented x3 Neck Neck: Yes normal visual inspection and Yes no JVD Chest Chest palpation & inspection: normal inspection of the chest Resp Effort & Inspection: normal respiratory effort Auscultation: clear to auscultation bilaterally, no rales, no rhonchi and no wheezes Cardio Jugular venous distension: no JVD Rate: regular rate Rhythm: regular rhythm Heart sounds: S1 normal heart sound present, S2 normal heart sound present, no murmurs and no rubs Neuro General: patient oriented x3 Extrem General: Yes normal to inspection and No no pedal edema Psych Appearance: grossly normal Mental Status: mental status grossly normal Speech and movement: Normal speech and movement present Assessment & Plan Assessment & Plan (1) SVT (supraventricular tachycardia): Code(s): I47.1 - Supraventricular tachycardia Category: Medical Plan: History of SVT. He did require ER visit 08/05/2022 for episode of SVT, symptomatic. He was treated with adenosine times 2 then, became more unstable and had cardioversion with successful conversion back to sinus rhythm. EKGs showing SVT not available however rhythm strips from EMS reviewed by Dr. 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 He underwent a cardiac event monitor on 09/26/2022 which was for 30 days however he only wore on 8 days showing sinus rhythm with average heart rate 69, heart rate range 51 to 136, no atrial fibrillation, rare SVE and ve. Echocardiogram done 09/26/2022 showed EF 60%, no valve abnormalities and No reported wall motion abnormality. Exercise stress echo done 11/06/2022 showed exercise 3 minute with report of chest discomfort and moderate shortness of breath, no EKG changes and no echo evidence of ischemia. He was seen in [facility] ER on 11/11/2022 with recurrent palpitations. He received 2 doses of adenosine with conversion back to sinus rhythm. He has been seen by Dr. Aguilera for EP and was scheduled for a SVT ablation on 2 occasions. The 1st time he canceled due to anxiety about the procedure. The 2nd time was canceled due to illness with fever. He now tells me he is scheduled for SVT ablation in May 2024. He has not had recurrent NSVT in recent months. Instructed to continue on metoprolol. Reviewed reduction in any caffeinated beverages, vagal maneuvers. ED care if needed. Cardiology follow-up 5 months, sooner if needed -anticipate this to be post ablation. (2) HTN (hypertension): Code(s): I10 - Essential (primary) hypertension Category: Medical Qualifiers: Hypertension type: unspecified Qualified Code(s): I10 - Essential (primary) hypertension Plan: Low side today. Asymptomatic. Plan Time spent on chart review, documentation, interview assess Coding Level of Care Code Est Pt Level 3 (21353) Complex EM visit Add On G2211 Diagnoses SVT (supraventricular tachycardia) I47.1 Hypertension, unspecified type I10 Hypertension type: unspecified Time Spent (min) 24
[2024-03-10 13:07] VITALS: BP 110/64; PULSE 81
--- OUTSIDE RECORDS SUMMARY | 2024-03-10 14:00 | XMS_ITS ---
Author Organization [facility] Address Unknown Problems Problem Status Start Date End Date NONTRAUMATIC INTRACEREBRAL H EMORRHAGE, UNSPECIFIED (Primary) (I61.9 - ICD-10-CM) ACTIVE 06/01/2020 MUSCLE WASTING AND ATROPHY, NOT ELSEWHERE CLASSIFIED, RIGHT SHOULDER (M62.511 - ICD-10-CM) ACTIVE 06/01/2020 COVID-19 (U07.1 - ICD-10-CM) ACTIVE 06/01/2020 MUSCLE WASTING AND ATROPHY, NOT ELSEWHERE CLASSIFIED, LEFT SHOULDER (M62.512 - ICD-10-CM) ACTIVE 06/01/2020 ESSENTIAL (PRIMARY) HYPERTENSION (I10 - ICD-10-CM) ACT MATEO 06/01/2020 PNEUMONIA, UNSPECIFIED ORGANISM (J18.9 - ICD-10-CM) AC TIVE 06/01/2020 LOW BACK PAIN (M54.5 - ICD-10-CM) ACTIVE 021 ANOREXIA (R63.0 - ICD-10-CM) ACTIVE 06/01/2020 MUSCLE WASTING AND ATROPHY, NOT ELSEWHERE CLASSIFIED, RIGHT UPPER ARM (M62.521 - ICD-10-CM) ACTIVE 06/01/2020 MUSCLE WASTING AND ATROPHY, NOT ELSEWHERE CLASSIFIED, LEFT UPPER ARM (M62.522 - ICD-10-CM) ACTIVE 06/01/2020 DYSPHAGIA, OROPHARYNGEAL PHASE (R13.12 - ICD-10-CM) AC TIVE 06/01/2020 UNSTEADINESS ON FEET (R26.81 - ICD-10-CM) ACTIVE 06/01/2020 OTHER MALAISE (R53.81 - ICD-10-CM) ACTIVE 2020 OTHER REDUCED MOBILITY (Z74.09 - ICD-10-CM) ACTIVE 06/01/2020 ELEVATED BLOOD-PRESSURE READ ING, WITHOUT DIAGNOSIS OF HYPERTENSION (R03.0 - ICD-10-CM) ACTIVE 06/01/2020 NAUSEA WITH VOMITING, UNSPECIFIED (R11.2 - ICD-10-CM) ACTIVE 06/01/2020 NON-ST ELEVATION (NSTEMI) MY OCARDIAL INFARCTION (I21.4 - ICD-10-CM) ACTIVE 06/01/2020 SHORTNESS OF BREATH (R06.02 - ICD-10-CM) ACTIVE 06/01/2020 MAJOR DEPRESSIVE DISORDER, R ECURRENT, UNSPECIFIED (F33.9 - ICD-10-CM) ACTIVE 06/01/2020 SUPRAVENTRICULAR TACHYCARDIA (I47.1 - ICD-10-CM) ACTIV E 06/01/2020 MALIGNANT NEOPLASM OF PROSTATE (C61 - ICD-10-CM) ACTIV E 06/01/2020 HYPERLIPIDEMIA, UNSPECIFIED (E78.5 - ICD-10-CM) ACTIVE 06/01/2020 ALLERGIC RHINITIS, UNSPECIFIED (J30.9 - ICD-10-CM) ACT MATEO 06/01/2020 Encounters Encounter Performer Performer Role Encounter Diagnoses Location Date Discharge - Discharged / Transferred to home under care of a home IV drug therapy provider - [facility] - Private home/apt. with home health services [facility] 1 05:53 pm EDT - 1 10:39 pm EDT Immunizations Vaccine Date Influenza TB 2 Step Mantoux Skin Test 06/02/2020 0 6:00 pm EDT PCV13 (Pneumococcal Conjugate)Vaccine Social History
== END 2024-03-10 13:36 | disposition home or self-care (01) ==
PROVIDERS: PCP Internal Medicine; Visit Provider Nurse Practitioner Family
DX: I47.10 Supraventricular tachycardia, unspecified (principal); I10 Essential (primary) hypertension
CPT/HCPCS: 99213; G2211

== ENCOUNTER → 2024-03-10 12:43 | Outpatient (BNVA) | payer MEDICARE, MEDICAID, SELFPAY | PROVIDERS: PCP Internal Medicine; Visit Provider Nurse Practitioner Family | DX: I47.10 Supraventricular tachycardia, unspecified (principal); I10 Essential (primary) hypertension | CPT/HCPCS: 99212 ==

== ENCOUNTER 2024-04-07 10:26 | Outpatient (AMB) | payer MEDICARE, MEDICAID, SELFPAY ==
--- NOTE | 2024-04-07 11:03 | MHC.PC.OV ---
Vital Signs 04/07/24 11:07 Height 5 ft 10 in Weight 211 lb BMI 30.3 BP 112/70 Blood Pressure Location Lt brachial Position Sitting Intake Visit Reasons: 6 Months F/U Intake Note: Patient here for a 6 month follow up Photographer Scientific Required: No Accompanied by: Self / Same As Patient Allergies No Known Allergies [No Known Allergies*] Allergy (Verified 04/07/24 11:16) Medication List - Last Reconciled 04/07/24 by Shu Vizcaino MD atorvastatin 40 mg PO DAILY cetirizine 10 mg PO DAILY PRN gabapentin 300 mg PO BID metoprolol tartrate 12.5 mg (1/2 x 25 mg) PO BID 90 days naproxen 500 mg PO BID PRN Tobacco use date assessed: 04/07/24 Fall risk assessment: No Falls in past year Last assessed Fall Risk: 04/07/24 Dental Screening Dental Screen Date: 04/07/24 Did you have a dental visit in the last 12 months?: Yes Did you have a dental problem in the last 6 months where you did not have access to dental care?: No Was dental information given to patient?: Patient has dentist HPI HPI Comments History of Present Illness Details The patient is a 68-year-old male presenting with dizziness and health maintenance concerns. He experienced a short-lived dizziness episode while resting, which self-resolved. He has a history of essential hypertension and hyperlipidemia, treated with metoprolol and atorvastatin, respectively. His allergic rhinitis is managed with cetirizine, and chronic pain is addressed using naproxen as needed. A concern for hyperglycemia is noted, and past prostate carcinoma was treated effectively, with a currently normal PSA. The patient is an active smoker, with intentions to quit post-heart procedure. He has mild major depression is in remission. He has not had a colonoscopy in 20 years, although the procedure was discussed last year. There is an observable weight loss, and he requests dietary guidance. [facility] Medical History (Updated 04/07/24 @ 11:40 by Shu Vizcaino MD) Anxiety and depression Brain bleed Prostate cancer Myocardial infarct HTN (hypertension) Surgical History S/P lumpectomy, right breast Family History Mother No problems noted. Father No problems noted. Social History Housing: House Alcohol intake: never Patient Tobacco Use Status: Current everyday Tobacco user Tobacco use type: Cigarette Cigarette Packs Per Day: 1.5 Cigarettes Per Day: 30 Years Smoked: 53 e-Cigarette/Vaping Use: Never Used Second Hand Smoke Exposure: Yes service: No Current occupational status: retired Cognitive needs: No Hearing needs: No Vision needs: Yes (glasses) Questionnaire PHQ-9 Over the last 2 weeks, how often have you been bothered by any of the following problems? 1. Little interest or pleasure in doing things: not at all 2. Feeling down, depressed, or hopeless: not at all 3. Trouble falling or staying asleep, or sleeping too much: not at all 4. Feeling tired or having little energy: not at all 5. Poor appetite or overeating: not at all 6. Feeling bad about yourself - or that you are a failure or have let yourself or your family down: not at all 7. Trouble concentrating on things, such as reading the newspaper or watching television: not at all 8. Moving or speaking so slowly that other people could have noticed. Or the opposite - being so fidgety or restless that you have been moving around a lot more than usual: not at all 9. Thoughts that you would be better off or of hurting yourself in some way: not at all Total score: 0 Depression Screening Interpretation: Negative Depression Screening Done: Yes 25464 - PHQ-9 Billing: Yes Source: Developed by Drs. Kuldeep Banegas, Vesna Gentile, Zaheer Jones and colleagues, with an educational enoc from [employer]. Thrive Questionnaire Date Thrive assessed: 04/07/24 I am a: Patient What is your living situation today?: I have a steady place to live Within the past 12 months, did the food you bought not last and you didn't have the money to get more?: Never true Within the past 12 months, did you worry whether your food would run out before you got money to buy more?: Never true Do you have trouble paying for medicines?: No Do you have trouble getting transportation to medical appointments?: No Do you have trouble paying your heating and electricity bill?: No Do you have trouble taking care of your child, family member or friend?: No Do you have trouble with day-to-day activities such as bathing, preparing meals, shopping, managing finances, etc.?: No Are you currently unemployed and looking for a job?: No Are you interested in more education?: No Please select the resources that you would like help with: None Currently or been in a relationship where the following occur: No concerns reported THRIVE Score: 0 AUDIT C Alcohol Use Questionnaire (AUDIT-C) 1. How often do you have a drink containing alcohol?: Never Total Score: 0 Score Reviewed/Action Taken: No RACHEAL-7 AMB Questionnaire RACHEAL-7 Date RACHEAL - 7 assessed: 04/07/24 Feeling nervous, anxious, or on edge: 0 = Not at all Not being able to stop or control worryin = Not at all Worrying too much about different things: 0 = Not at all Trouble relaxin = Not at all Being so restless that it is hard to sit still: 0 = Not at all Becoming easily annoyed or irritable: 0 = Not at all Feeling afraid as if something awful might happen: 0 = Not at all Total RACHEAL-7 score (0-4 normal; 5-9 mild; 10-14 moderate; 15-21 severe): 0 Source: Developed by Drs. Kuldeep Banegas, Vesna Gentile, Zaheer Jones and colleagues, with an educational enoc from [employer]. RACHEAL-7 Assessment Billing RACHEAL-7 Assessment Tool: RACHEAL-7 Assessment 11798 Review of Systems Const All systems reviewed & are unremarkable except as noted in HPI and below Card Denies chest pain at rest, Denies chest pain with activity, Denies edema, Denies irregular heart rhythm, Denies claudication, Denies dyspnea, Denies dyspnea on exertion, Denies orthopnea, Denies paroxysmal nocturnal dyspnea and Denies slow heart rate Resp Denies cough, Denies dyspnea and Denies dyspnea on exertion GI Denies abdominal pain, Denies change in bowel habits, Denies excessive flatus, Denies nausea and Denies vomiting Physical exam (Primary Care) Vital Signs: Last Vital Signs BP 112/70 04/07/24 11:07 BMI result Body Mass Index 30.3 BMI Assessment/Plan discussion: High BMI High, discussed plan: lifestyle, weight reduction, dietary and physical activity Tobacco/Smoking Status: Tobacco use Status Tobacco use date assessed 04/07/24 04/07/24 11:11 Patient Tobacco Use Status Current everyday Tobacco 04/07/24 11:06 Tobacco use type Cigarette 04/07/24 11:06 e-Cigarette/Vaping Use Never Used 04/07/24 11:06 PHQ-9: PHQ-9 Score PHQ-9: Total score 0 04/07/24 11:13 Depression Screening Interpretation: Negative Thrive Assessment: Date of Thrive Assessment Date Thrive assessed 04/07/24 04/07/24 11:06 Currently or been in a relationship where the following occur: No concerns reported Resp Effort & Inspection: normal respiratory effort Auscultation: clear to auscultation bilaterally Cardio Jugular venous distension: no JVD Rate: regular rate Rhythm: regular rhythm Heart sounds: S1 normal heart sound present and S2 normal heart sound present Extrem General: Yes full ROM Office Procedures Flu Questionnaire Does the patient have a severe egg allergy?: No Immunizations Fluarix Triv [id number] (PF) 45 mcg (15 mcg x 3)/0.5 mL IM syringe Performing Provider: Shu Vizcaino MD [facility] Documented (not given) by: CHELSEA Ya on 04/07/24 11:14 Reason Not Given: Patient Refused Coding Level of Care Code Est Pt Level 4 (09101) Complex EM visit Add On G2211 Diagnoses Hypertension, unspecified type I10 Hypertension type: unspecified Prostate cancer C61 Pure hypercholesterolemia E78.00 Allergic rhinitis J30.9 Mild major depression F32.0 Blurry vision H53.8 Additional Codes PHQ-9 - 03101 - PHQ-9 Billing: Yes ([id number]) RACHEAL-7 Assessment Billing - RACHEAL-7 Assessment Tool: RACHEAL-7 Assessment 14503 ([id number]) Time Spent (min) 23 Assessment & Plan Assessment & Plan (1) HTN (hypertension): Code(s): I10 - Essential (primary) hypertension Category: Medical Qualifiers: Hypertension type: unspecified Qualified Code(s): I10 - Essential (primary) hypertension (2) Prostate cancer: Code(s): C61 - Malignant neoplasm of prostate Category: Medical (3) Pure hypercholesterolemia: Code(s): E78.00 - Pure hypercholesterolemia, unspecified Category: Medical (4) Allergic rhinitis: Code(s): J30.9 - Allergic rhinitis, unspecified Category: Medical (5) Mild major depression: Code(s): F32.0 - Major depressive disorder, single episode, mild Category: Medical (6) Blurry vision: Code(s): H53.8 - Other visual disturbances Category: Medical Plan The patient's dizziness will be observed, with follow-up diagnostics to assess PSA, cholesterol, and blood glucose levels. Current hypertensive and hyperlipidemia treatments will persist. Smoking cessation interventions will be integrated post-stent. Nutritional consults will support dietary improvements and potential weight management. A colonoscopy is needed to address long-term health screening, alongside routine urology follow-ups for prostate health monitoring. Patient was informed and verbally consented to the use of an ambient scribe for clinic note documentation during this visit. I discussed with the patient the transient nature of his dizziness and the importance of monitoring it further. I?ll proceed with ordering blood work to evaluate PSA, cholesterol, glucose levels, and any necessary adjustments made after results. The patient's antihypertensive and lipid management is ongoing, but the importance of lifestyle modifications, particularly smoking cessation, was reinforced. The potential benefits and risks of quitting smoking after his cardiac procedure were outlined. I recommended a income tax preparer consult to support dietary changes and weight management, given recent weight loss. For cancer surveillance, the need for a colonoscopy and routine urological evaluations was emphasized, considering the lapse since his last screenings. Orders: Orders Lipid Panel Today E78.5 - Hyperlipidemia, unspecified Influenza 6726-9124 Immunization Today Z23 - Encounter for immunization PSA,Total (Free>4and<10) Today R35.1 - Nocturia Comprehensive Velva. Panel Fast Today E78.00 - Pure hypercholesterolemia, unspecified Referrals Open Access Screening Colonoscopy Referral Z12.12 - Encounter for screening for malignant neoplasm of rectum Urology Referral C61 - Malignant neoplasm of prostate Nutrition/Dietitian Referral E78.00 - Pure hypercholesterolemia, unspecified, I10 - Essential (primary) hypertension Ophthalmology Referral H53.8 - Other visual disturbances Patient Instructions: - Monitor for any recurrent dizziness or new symptoms. - Follow up for labs to check PSA, cholesterol, and glucose levels. - Continue current medications for hypertension and hyperlipidemia. - Consider smoking cessation support and schedule post-stent procedure. - Consult with a income tax preparer for dietary modifications. - Schedule a colonoscopy and urology follow-up. - Report any significant changes in thirst, weight, or health concerns.
[2024-04-07 11:07] VITALS: BP 112/70; BMI 30.3
== END 2024-04-07 11:27 | disposition home or self-care (01) ==
PROVIDERS: PCP Internal Medicine; Visit Provider Internal Medicine
DX: I10 Essential (primary) hypertension (principal); C61 Malignant neoplasm of prostate; F32.0 Major depressive disorder, single episode, mild; E78.00 Pure hypercholesterolemia, unspecified; J30.9 Allergic rhinitis, unspecified; H53.8 Other visual disturbances

== ENCOUNTER → 2024-04-07 10:26 | Outpatient (BNVA) | payer MEDICARE, MEDICAID, SELFPAY | PROVIDERS: PCP Internal Medicine; Visit Provider Internal Medicine | DX: I10 Essential (primary) hypertension (principal); C61 Malignant neoplasm of prostate; E78.00 Pure hypercholesterolemia, unspecified; J30.9 Allergic rhinitis, unspecified; F32.0 Major depressive disorder, single episode, mild; H53.8 Other visual disturbances | CPT/HCPCS: 96127; 99212 ==

== ENCOUNTER 2024-05-05 11:19 | Outpatient (REF) | payer MEDICARE, MEDICAID, SELFPAY ==
--- OUTSIDE RECORDS SUMMARY | 2024-05-05 12:59 | XMS_ITS ---
Author Organization [facility] Care Team Providers Care Seafood Farmer Name Role Phone Sanju Frausto Unavailable Unavailable Chio Resendez Unavailable Unavailable Allergies and adverse reactions No Known Allergies Care Team Name Role Address Phone Organization Dates Sanju Frausto PCP [address], [address], [facility] (Office): : [facility] 06/01/2020 - 06/09/2020 Chio Resendez Attending Physician [address], [address], [facility] (Office): [facility] 06/01/2020 - 06/09/2020 Immunizations Immunization Status Vaccine Details Vaccine Code CodeSystem Date Notes Influenza cancelled Influenza, split virus, trivalent, injectable, contains preservative 141 CVX created date: 06/02/2020 consent date: 06/02/2020 education provided TB 2 Step Mantoux Skin Test completed tuberculin skin test; unspecified formulation lotNumber: [id number] expiry: 03/29/2021 Mfg: PAR pharmaceical Given 0.1 ml Right Forearm intradermally Step 1 of Multi-step 98 CVX created date: 06/02/2020 consent date: 06/02/2020 administer ed date: 06/02/2020 PCV13 (Pneumococcal Conjugate)Vaccin e cancelled pneumococcal conjugate vaccine, 13 valent 133 CVX created date: 06/02/2020 consent date: 06/02/2020 education provided Mental Status Section Date Assessment Total Score Description 06/08/2020 CAM 0 No delirium ind icated 06/05/2020 BIMS 15 cognitively int act CAM 0 No delirium ind icated PHQ-9 00 Problems Problem # Description Date of onset Resolved Date Code CodeSystem Concern Status 1 ALLERGIC RHINITIS, UNSPECIFIED 06/02/[address] active 2 ANOREXIA 06/02/[address] active 3 COVID-19 06/02/[address] active 4 DYSPHAGIA, OROPHARYNGEAL PHASE 06/02/[address] active 5 ELEVATED BLOOD-PRESSURE READING, WITHOUT DIAGNOSIS OF HYPERTENSION 06/02/[address] active 6 ESSENTIAL (PRIMARY) HYPERTENSION 06/02/[address] active 7 HYPERLIPIDEMIA, UNSPECIFIED 06/02/[address] active 8 LOW BACK PAIN 06/02/[address] active 9 MAJOR DEPRESSIVE DISORDER, RECURRENT, UNSPECIFIED 06/02/[address] active 10 MALIGNANT NEOPLASM OF PROSTATE 06/02/[address] active 11 MUSCLE WASTING AND ATROPHY, NOT ELSEWHERE CLASSIFIED, LEFT SHOULDER 06/02/[address] active 12 MUSCLE WASTING AND ATROPHY, NOT ELSEWHERE CLASSIFIED, LEFT UPPER ARM 06/02/[address] active 13 MUSCLE WASTING AND ATROPHY, NOT ELSEWHERE CLASSIFIED, RIGHT SHOULDER 06/02/[address] active 14 MUSCLE WASTING AND ATROPHY, NOT ELSEWHERE CLASSIFIED, RIGHT UPPER ARM 06/02/[address] active 15 NAUSEA WITH VOMITING, UNSPECIFIED 06/02/[address] active 16 NON-ST ELEVATION (NSTEMI) MYOCARDIAL INFARCTION 06/02/[address] active 17 NONTRAUMATIC INTRACEREBRAL HEMORRHAGE, UNSPECIFIED 06/02/[address] active 18 OTHER MALAISE 06/02/[address] active 19 OTHER REDUCED MOBILITY 06/02/[address] active 20 PNEUMONIA, UNSPECIFIED ORGANISM 06/02/[address] active 21 SHORTNESS OF BREATH 06/02/[address] active 22 SUPRAVENTRICULAR TACHYCARDIA 06/02/[address] active 23 UNSTEADINESS ON FEET 06/02/[address] active Reason for Referral No Reasons for Referral Entered Social History Social History Observation Description Start Date End Date Code Code System Current Smoking Status Tobacco smoking consumption unknown 601883759 SNOMED CT Sex Assigned At Male 1955 59309-9 [facility] Vital Signs Code Code System Vitals Name Values and Units Timing Information 9279-1 [facility] Respiratory Rate Value=18.0 Units=/m in 06/08/2020 8310-5 [facility] Body Temperature Value=97.4 Units=?? F 06/08/2020 90136-1 [facility] O2 % dC Oximetry Value=95.0 Units= % 06/08/2020 05571-7 [facility] Pain Level Value=0.0 06/08/2020 8462-4 [facility] Blood Pressure-Diastolic Value=71 Un its=mmHg 06/07/2020 8480-6 [facility] Blood Pressure-Systolic Nlmhh=015 Un its=mmHg 06/07/2020 8867-4 [facility] Heart rate Value=77.0 Units=/min 04/2020 8302-2 LOINC Height Value=70.0 Units=Inches 06/01/2020 54955-6 [facility] Weight Ywamt=878.8 Units=Lbs
[2024-05-05 13:23] LABS: PSA,Total (Free>4and<10) 1.08 ng/mL (0.00-4.00)
[2024-05-05 13:24] LABS: Prostate Specific Antigen 1.09 ng/mL (<0.05-4.0)
[2024-05-05 13:35] LABS: Alanine Aminotransferase 35 U/L (0-40); Albumin Level 4.2 g/dL (3.5-5.0); Anion Gap 11 (12-20); Aspartate Amino Transferase 31 U/L (5-37); Blood Urea Nitrogen 15 mg/dL (9-16); Calcium 8.8 mg/dL (8.4-10.2); Carbon Dioxide 27 mmol/L (22-29); Chloride 109 mmol/L (96-108); Cholesterol 147 mg/dL (<200); Estimated Glomerular Filt Rate > 60; Glucose Fasting 87 mg/dL (60-99); HDL Cholesterol 35 mg/dL (>40); Potassium 4.6 mmol/L (3.3-5.1); Sodium 142 mmol/L (135-145); Total Protein 6.9 g/dL (6.5-8.0); Triglycerides 180 mg/dL (<150)
[2024-05-05 13:36] LABS: Alkaline Phosphatase 42 U/L (39-117); LDL Cholesterol Calculated 76 mg/dL (<100)
[2024-05-11 11:13] LABS: Testosterone, Free 43.1 pg/mL (35.0-155.0); Testosterone, Total 365 ng/dL (250-1100)
== END 2024-05-05 11:20 | disposition home or self-care (01) ==
LOC: HO.LAB 11:19
PROVIDERS: PCP Internal Medicine; Visit Provider Nurse Practitioner Family
DX: C61 Malignant neoplasm of prostate (principal); R35.1 Nocturia; I10 Essential (primary) hypertension; E78.5 Hyperlipidemia, unspecified; E78.00 Pure hypercholesterolemia, unspecified; Z12.5 Encounter for screening for malignant neoplasm of prostate; Z71.3 Dietary counseling and surveillance
CPT/HCPCS: 36415; 80053; 80061; 84153; 84402; 84403; 97802

== ENCOUNTER 2024-05-05 11:58 | Outpatient (AMB) | payer MEDICARE, MEDICAID, SELFPAY ==
--- NOTE | 2024-05-05 12:44 | MHC.AMNUTRGE ---
VS Expanded 05/05/24 12:50 05/05/24 13:16 Height 5 ft 10 in 5 ft 10 in Weight 214 lb 4.629 oz 214 lb BMI 30.7 30.7 Intake Visit Reasons: Essential (primary) hypertension Allergies No Known Allergies [No Known Allergies*] Allergy (Verified 04/07/24 11:16) Nutrition Presentation Details: Pt presents for MNT for essential HTN, hypercholesterolemia Pt reports having services from [employer], has 2 meals daily 7 days a week Pt reports having plans to quit smoking before 69th birthday and is interested in improving diet Acknowledges increased intake of fast food meals food frequency fruits: 2 a day ve-4 /day dairy 2/d fish 1-2x/wk starches : variety beverages: water/low sugar juices Reports habit of eating out - choosing fried food items but gradually working on modifications BS Monitoring Most Recent Diabetes Results: Cholesterol Pending 05/05/24 HDL Cholesterol Pending 05/05/24 Triglycerides Pending 05/05/24 Creatinine Pending 05/05/24 Blood Urea Nitrogen Pending 05/05/24 Sodium Pending 05/05/24 Potassium Pending 05/05/24 Chloride Pending 05/05/24 Carbon Dioxide Pending 05/05/24 Calcium Pending 05/05/24 AST Pending 05/05/24 ALT Pending 05/05/24 Total Protein Pending 05/05/24 Albumin Pending 05/05/24 UPB-Kykpsgf-Oj.Jeor Equation Height: 5 ft 10 in Weight: 214 lb Resting Metabolic Rate: 1746.49 Calculated Activity Level: Sedentary Calories Needed to Maintain Weight: 2095.79 Diagnosis Nutrition problem #1: food nutri know defi As related to (etiology) #1: diagnosis As evidenced by (sign/symptom) #1: knowledge deficit of diet [facility] Medical History Anxiety and depression Brain bleed Prostate cancer Myocardial infarct HTN (hypertension) Surgical History S/P lumpectomy, right breast Family History Mother No problems noted. Father No problems noted. Social History Housing: House Alcohol intake: never Patient Tobacco Use Status: Current everyday Tobacco user Tobacco use type: Cigarette Cigarette Packs Per Day: 1.5 Cigarettes Per Day: 30 Years Smoked: 53 e-Cigarette/Vaping Use: Never Used Second Hand Smoke Exposure: Yes service: No Current occupational status: retired Cognitive needs: No Hearing needs: No Vision needs: Yes (glasses) Assessment & Plan Assessment & Plan (1) Pure hypercholesterolemia: Comment: HTN , hypercholesterolemia Code(s): E78.00 - Pure hypercholesterolemia, unspecified Category: Medical Plan: Wt: 97 Kg ( 04/29 ) Est kcal needs as per MSJ: 2100 (40% carb, 30% protein/fat) Est fluid needs as per 25-30 ml/d: 2900 Est prot per day as per 1 g/kg bw: 100 Recommend fiber intake : 8-10 g per day and gradually increase to 25-28 g per day for women and 35-38 g for men or as tolerated Recommend sodium intake per day : less than 2000 mg Educated patient on: ( R = reviewed V = verbalizes understanding N/R = needs review N/A = not applicable Food sources of carbohydrate, adequate serving sizes and its role in various health conditions: R V N/R Differences between complex carbohydrates a simple carbohydrates, role of fiber in diet: R V N/R Lean protein sources of foods: R V NR Differences between types of fats and role in diet (mono on saturated fat fatty acids, saturated fatty acids, trans fats): R basic low fat food concepts Food sources of sodium in salt and healthy modifications for heart health in kidney health: R V R/V Vitamins and minerals: R V N/R Healthy plate method concept: R V N/R Physical activity: Benefits a precaution: R V N/R Patient Instructions: Practice mindful eating Choose water/water with lemon, low sugar/low sodium/decaf beverages (seltzer, decaf tea, light lemonade as example) Work on reducing on fried foods (have baked potato instead of fried , remove batters from protein foods ) have a yogurt as snack Coding Level of Care Code Nutr Indiv Intake (96608) Diagnoses Pure hypercholesterolemia E78.00 Time Spent (min) 30
[2024-05-05 12:50] VITALS: BMI 30.7
[2024-05-05 13:16] VITALS: BMI 30.7
--- OUTSIDE RECORDS SUMMARY | 2024-05-05 13:43 | XMS_ITS ---
Author Organization [facility] Care Team Providers Care Supervisor Inspecting Name Role Phone Sanju Frausto Unavailable Unavailable Chio Resendez Unavailable Unavailable Allergies and adverse reactions No Known Allergies Care Team Name Role Address Phone Organization Dates Sanju Frausto PCP [address], [address], [facility] (Office): : [facility] 06/01/2020 - 06/09/2020 Chio Resendez Attending Physician [address], [address], [facility] (Office): [facility] 06/01/2020 - 06/09/2020 Immunizations Immunization Status Vaccine Details Vaccine Code CodeSystem Date Notes Influenza cancelled Influenza, split virus, trivalent, injectable, contains preservative 141 CVX created date: 06/02/2020 consent date: 06/02/2020 education provided TB 2 Step Mantoux Skin Test completed tuberculin skin test; unspecified formulation lotNumber: [id number] expiry: 03/29/2021 Mfg: PAR pharmaceical Given 0.1 [...] Status 1 ALLERGIC RHINITIS, UNSPECIFIED 06/02/[address] active 2 ANOREXIA 06/02/[address] active 3 COVID-19 06/02/[address] active 4 DYSPHAGIA, OROPHARYNGEAL PHASE 06/02/[address] active 5 ELEVATED BLOOD-PRESSURE READING, WITHOUT DIAGNOSIS OF HYPERTENSION 06/02/[address] active 6 ESSENTIAL (PRIMARY) HYPERTENSION 06/02/[address] active 7 HYPERLIPIDEMIA, UNSPECIFIED 06/02/[address] active 8 LOW BACK PAIN 06/02/[address] active 9 MAJOR DEPRESSIVE DISORDER, RECURRENT, UNSPECIFIED 06/02/[address] active 10 MALIGNANT NEOPLASM OF PROSTATE 06/02/[address] active 11 MUSCLE WASTING AND ATROPHY, NOT ELSEWHERE CLASSIFIED, LEFT SHOULDER 06/02/[address] active 12 MUSCLE WASTING AND ATROPHY, NOT ELSEWHERE CLASSIFIED, LEFT UPPER ARM 06/02/[address] active 13 MUSCLE WASTING AND ATROPHY, NOT ELSEWHERE CLASSIFIED, RIGHT SHOULDER 06/02/[address] active 14 MUSCLE WASTING AND ATROPHY, NOT ELSEWHERE CLASSIFIED, RIGHT UPPER ARM 06/02/[address] active 15 NAUSEA WITH VOMITING, UNSPECIFIED 06/02/[address] active 16 NON-ST ELEVATION (NSTEMI) MYOCARDIAL INFARCTION 06/02/[address] active 17 NONTRAUMATIC INTRACEREBRAL HEMORRHAGE, UNSPECIFIED 06/02/[address] active 18 OTHER MALAISE 06/02/[address] active 19 OTHER REDUCED MOBILITY 06/02/[address] active 20 PNEUMONIA, UNSPECIFIED ORGANISM 06/02/[address] active 21 SHORTNESS OF BREATH 06/02/[address] active 22 SUPRAVENTRICULAR TACHYCARDIA 06/02/[address] active 23 UNSTEADINESS ON FEET 06/02/[address] active Reason for Referral No Reasons for Referral Entered Social History Social History Observation Description Start Date End Date Code Code System Current Smoking Status Tobacco smoking consumption unknown 476491266 SNOMED CT Sex Assigned At Male 1955 36106-8 [facility] Vital Signs Code Code System Vitals Name Values and Units Timing Information 9279-1 [facility] Respiratory Rate Value=18.0 Units=/m in 06/08/2020 8310-5 [facility] Body Temperature Value=97.4 Units=?? F 06/08/2020 92440-7 [facility] O2 % dC Oximetry Value=95.0 Units= % 06/08/2020 07987-1 [facility] Pain Level Value=0.0 06/08/2020 8462-4 [facility] Blood Pressure-Diastolic Value=71 Un its=mmHg 06/07/2020 8480-6 [facility] Blood Pressure-Systolic Xkfmz=649 Un its=mmHg 06/07/2020 8867-4 [facility] Heart rate Value=77.0 Units=/min 04/2020 8302-2 [facility] Height Value=70.0 Units=Inches 06/01/2020 42657-3 [facility] Weight Anvxk=221.8 Units=Lbs
== END 2024-05-05 13:07 | disposition home or self-care (01) ==
LOC: HO.ENCR 11:59
PROVIDERS: PCP Internal Medicine; Visit Provider Dietitian, Registered
DX: E78.00 Pure hypercholesterolemia, unspecified (principal)

== ENCOUNTER 2024-05-29 10:29 | Outpatient (AMB) | payer MEDICARE, MEDICAID, SELFPAY ==
--- NOTE | 2024-05-29 10:35 | A.OFFVIS_ITS ---
Intake Visit Reasons: prostate cancer Intake Note: Patient presents today for follow up visit for spermatocele, prostate cancer, and lab results PSA: 1.09 Testosterone: 365; Free Testosterone: 43.1 Urology Medications: none Blood Thinner: none Account Underwriter Required: No Accompanied by: Self / Same As Patient Allergies No Known Allergies [No Known Allergies*] Allergy (Verified 05/29/24 10:41) HPI Comments Details: Wolfgang is a 68-year-old male patient of Dr. Gomez. He has a past medical history of anxiety, depression, prostate cancer, brain bleed, myocardial infarction, and hypertension. He presents to the office today for a follow up of his history of prostate cancer and for his bilateral spermatoceles. In discussion with the patient today reports to be doing and feeling well. He discusses upcoming cardiac ablation next week with Dr. Aguilera. PSAs are as follows: 05/28 1.2, 11/27 1.4, 03/31 1.1, 04/29 1.1 Testosterone: 04/29 365 Attempted to obtain previous urology records from [facility] however unable to obtain after multiple attempts. He does continue to report intermittent left-sided scrotal/testicular discomfort. On exam today patient with tender epididymis. Palpable epididymal head cysts as well as spermatoceles left side greater than right. We discussed surveillance monitoring versus spermatocelectomy. Risks and benefits of these interventions were discussed. Will continue with surveillance monitoring at this time per patient request. He otherwise denies any bothersome urinary issues. He denies urinary urgency, urinary frequency, incontinence, nocturia, hematuria, dysuria, foul smelling urine, changes to urinary stream, flank pain, fever, and or chills. He is happy with his current voiding parameters. In office urinalysis results reviewed with the patient today. All questions were answered. He was diagnosed with prostate cancer approximately 15 years ago and underwent chemotherapy and 40 days of radiation therapy at [facility]. His chemotherapy included hormones. Current PSA levels remain stable. The patient reported persistent tenderness in his left testicle over the past year, with concerns regarding potential testicular cancer. An examination did not reveal the typical firm mass associated with testicular cancer, noting the tenderness unrelated to the testicular mass but likely involving the epididymis. Despite reassurance, the patient remains concerned about malignancy will obtain scrotal ultrasound. Plan Despite reassuring examination findings, we will perform a scrotal ultrasound to evaluate the patient?s concerns about potential testicular cancer due to ongoing tenderness in the region, focusing on alleviating his anxiety regarding malignancy. Current PSA results support effective management with hormone therapy, and we anticipate continued observation without new interventions unless diagnostic imaging suggests otherwise.: Patient was informed and verbally consented to the use of an ambient scribe for clinic note documentation during this visit. Discussion Notes I discussed with the patient the stability of his prostate cancer status, with current PSA levels indicative of controlled disease status. After evaluating scrotal tenderness and history, I reassured the patient of the findings from examination, noting that tenderness primarily involved the epididymis and not a mass on the testicle itself. The patient expressed concerns about malignancy, and I agreed that a scrotal ultrasound would assist in providing reassurance as well as for further assessment evaluation. The patient acknowledged the plan and improvements anticipated by continued symptom monitoring. He is informed to communicate any changes or new symptoms promptly. [facility] Medical History Anxiety and depression Brain bleed Prostate cancer Myocardial infarct HTN (hypertension) Surgical History S/P lumpectomy, right breast Family History Mother No problems noted. Father No problems noted. Social History Housing: House Alcohol intake: never Patient Tobacco Use Status: Current everyday Tobacco user Tobacco use type: Cigarette Cigarette Packs Per Day: 1.5 Cigarettes Per Day: 30 Years Smoked: 53 e-Cigarette/Vaping Use: Never Used Second Hand Smoke Exposure: Yes service: No Current occupational status: retired Cognitive needs: No Hearing needs: No Vision needs: Yes (glasses) Review of Systems Const Reports as per HPI Eyes Reports no additional complaints ENT Reports no additional complaints Card Reports as per HPI Resp Reports no additional complaints GI Reports no additional complaints Reports as per HPI Musc Reports no additional complaints Neuro Reports as per HPI Psych Reports as per HPI Endo Reports no additional complaints Physical Exam Const General: cooperative, comfortable, no acute distress, well developed, alert and awake Orientation/consciousness: patient oriented x3 Limitations: no limitations HEENT Head: Yes normal to inspection, Yes normocephalic and Yes atraumatic Ears: hearing grossly normal bilaterally Eyes General: appearance normal, both eyes and all related structures Neck Neck: Yes normal visual inspection and Yes trachea midline Chest Chest palpation & inspection: normal inspection of the chest Resp Effort & Inspection: normal respiratory effort and able to speak in complete sentences Cardio Rate: regular rate GI Inspection: Yes normal to inspection General: Yes no CVA tenderness Back/Spine/Pelvis Back: no CVA tenderness Skin General skin exam: no rashes or lesions noted Neuro General: patient oriented x3 Extrem General: Yes normal to inspection Psych Appearance: grossly normal and well kempt Mental Status: mental status grossly normal Speech and movement: Normal speech and movement present and Clear speech present Affect: normal affect Attitude: cooperative Thought process: Normal thought process present Thought content: Normal thought content present Insight: Fair insight present (Psych) Judgement: Fair judgement present (Psych) Results AMB Urinalysis, Automated UA Leukoctes 15 Kip/uL Last Edit by [email or web address] on 05/29/24 10:49 UA Nitrite Last Edit by [employer] on 05/29/24 10:49 UA Urobilinogen 0.2 mg/dL Last Edit by [employer] on 05/29/24 10:49 UA Protein 30 mg/dL Last Edit by [employer] on 05/29/24 10:49 UA pH 6.0 Last Edit by [employer] on 05/29/24 10:49 UA Blood 0 Guy/uL Last Edit by [employer] on 05/29/24 10:49 UA Specific [place] 1.030 Last Edit by [employer] on 05/29/24 10:49 UA Ketone Last Edit by [employer] on 05/29/24 10:49 UA Bilirubin 1 mg/dL Last Edit by [employer] on 05/29/24 10:49 UA Glucose 0 mg/dL Last Edit by Jayne Yadav on 05/29/24 10:49 Results Reviewed Results Reviewed: Laboratory Last Values Urine pH (Auto) 6.0 05/29/24 10:41 Specific [place] (Auto) 1.030 05/29/24 10:41 Urine Protein (Auto) 30 mg/dL 05/29/24 10:41 Glucose (UA)(Auto) 0 mg/dL 05/29/24 10:41 Urine Blood (Auto) 0 Guy/uL 05/29/24 10:41 Urine Bilirubin (Auto) 1 mg/dL 05/29/24 10:41 Urine Urobilinogen (Auto) 0.2 mg/dL 05/29/24 10:41 Leukocyte Esterase (Auto) 15 Kip/uL 05/29/24 10:41 Assessment & Plan Assessment & Plan (1) Spermatocele: Code(s): N43.40 - Spermatocele of epididymis, unspecified Category: Medical (2) Testicular cyst: Code(s): N44.2 - Benign cyst of testis Category: Medical (3) Prostate cancer: Code(s): C61 - Malignant neoplasm of prostate Category: Medical Plan In office urinalysis results reviewed with the patient today; as noted above. Recent PSA and testosterone results reviewed with the patient today; as noted above. He currently denies any bothersome urinary issues or concerns. He reports be happy with current voiding parameters. Will obtain scrotal ultrasound for further assessment evaluation. Reassurance provided. Will continue with surveillance monitoring. Follow-up in 3 months with imaging to be completed prior; or sooner with any issues, concerns, and or questions. Orders: Orders AMB Urinalysis Automated Today Z13.9 - Encounter for screening, unspecified Patient Instructions: The patient had an opportunity to ask questions regarding the treatment plan. All questions were answered. Physical exam, labs, and imaging were discussed and reviewed in detail. As well as risks, benefits, and discussion of treatment choices. No major barriers to understanding were identified. The patient expressed understanding and agreement with the above treatment plan. The patient was made aware they should contact our office by phone for worsening of their current condition, the appearance of new symptoms, or with any questions or concerns. Compliance is encouraged with any medications and follow up testing that is ordered. It is a privilege to be allowed the opportunity to participate in? your urological care.? Again, if you have any questions or concerns If you have any questions or concerns please do not hesitate to contact me. The office is [phone]. This note is constructed using voice recognition software. While every effort has been made to ensure accuracy senior production supervisor errors may have been included. Yours sincerely, JOSUE Brown Coding Level of Care Code Est Pt Level 3 (44710) Complex EM visit Add On G2211 Diagnoses Spermatocele N43.40 Testicular cyst N44.2 Prostate cancer C61
== END 2024-05-29 11:04 | disposition home or self-care (01) ==
LOC: HO.HUSH 10:30
PROVIDERS: PCP Internal Medicine; Visit Provider Nurse Practitioner Family
DX: N43.40 Spermatocele of epididymis, unspecified (principal); N44.2 Benign cyst of testis; C61 Malignant neoplasm of prostate; Z13.9 Encounter for screening, unspecified
CPT/HCPCS: 99213; G2211

== ENCOUNTER → 2024-05-29 10:29 | Outpatient (BNVA) | payer MEDICARE, MEDICAID, SELFPAY | PROVIDERS: PCP Internal Medicine; Visit Provider Nurse Practitioner Family | DX: N43.40 Spermatocele of epididymis, unspecified (principal); N44.2 Benign cyst of testis; C61 Malignant neoplasm of prostate | CPT/HCPCS: 81003; 99212 ==

== ENCOUNTER 2024-09-11 13:29 | Outpatient (REF) | payer MEDICARE, MEDICAID, SELFPAY ==
--- NOTE | ~2024-09-11 | US_ITS ---
EXAMINATION: US SCROTUM CLINICAL INFORMATION: [Swelling of left testes. COMPARISON: Ultrasound scrotum 08/28/2022. TECHNIQUE: A sonogram of the scrotum was performed assessing de la cruz-scale appearance and color Doppler flow. Spectral Doppler analysis of the arterial and venous flow were performed in the testes bilaterally. FINDINGS: RIGHT: Right testicle measures 3.9 x 1.9 x 2.3, volume 9.0 mL. Previously the volume was 9.95 mL. No focal testicular parenchymal lesions are visualized. Spectral Doppler analysis of the arterial and venous flow is normal in the right testis. There are prominent rete testes visualized. There is a right testicular cyst measuring 0.7 x 0.7 x 0.8 cm. Right epididymal head is normal in size. There are several anechoic cysts seen. Largest epididymal cyst measures 2.4 x 1.9 x 3.0 cm. Right epididymal tail echogenic foci, stable No right hydrocele or varicocele is seen. Right epididymal Doppler flow is normal. LEFT: Left testicle measures 4.6 x 2.0 x 2.7cm, volume 12.9mL. Previously the volume measured 11.7 mL. No focal testicular parenchymal lesions are visualized. Spectral Doppler analysis of the arterial and venous flow is normal in the left testis. There are prominent rete testes seen with a left scrotal teodoro measuring 0.7 x 0.6 x 0.6 cm. Left epididymal head is normal in size. There are left epididymal cyst measuring 6.7 x 3.3 x 5.7 cm measuring 0.7 x 0.6 x 0.6 cm. No left hydrocele or varicocele is seen. Left epididymal Doppler flow is normal.. US/US scrotum IMPRESSION: Bilateral epididymal cyst mid normal bilateral epididymal arterial and venous vascular flow on Doppler. Right testicular cyst and bilateral testes are stable. Right epididymal echogenic posterior/calcification, stable. Left scrotal teodoro is stable. Electronically signed by: Shreyas Sanders MD 09/11/2024 03:39 PM EDT
--- OUTSIDE RECORDS SUMMARY | 2024-09-11 13:31 | XMS_ITS | Clinical Summary ---
Author Organization [facility] Address [address] [place] [phone] Phone Care Team Providers Care Java Tech Lead Name Role Phone Pcp, Unknown Primary Care Provider Unavailabl e Allergies No known active allergies Social History Tobacco Use Types Packs/Day Years Used Date Smoking Tobacco: Former Smokeless Tobacco: Never Alcohol Use Standard Drinks/Week Comments No 0 (1 standard drink = 0.6 oz pur e alcohol) Education Answer Date Recorded Are you interested in more education? Not on jennifer e 06/02/2022 Are you concerned about learning? Not on file 06/02/2022 No 06/02/2022 No 06/02/2022 Digital Access Answer Date Recorded No 07/01/2022 No 07/01/2022 No 07/01/2022 Reliable internet access at home? Not on file 07/01/2022 Device with a working camera? Not on file Intimate Partner Violence Answer Date R ecorded Are you denied basic needs s uch as food, clothing, or medical care? No 11/11/2022 In the past 12 months have y ou been in a relationship with a person who hurts, threatens, or tries to control you? No 11/11/2022 Are you denied basic needs s uch as food, clothing, or medical care? No 11/11/2022 In the past 12 months have y ou been in a relationship with a person who hurts, threatens, or tries to control you? No 11/11/2022 Sex and Gender Information Value Date Recorded Sex Assigned at Male 06/29/2017 11:48 AM EDT Legal Sex Male 9:56 PM EDT Gender Identity Male 06/29/2017 11:48 AM EDT Sexual Orientation Straight 06/29/2017 11 :48 AM EDT Last Filed Vital Signs Vital Sign Reading Time Taken Comments Blood Pressure 109/82 11/11/2022 4:25 PM EDT Pulse 93 11/11/2022 4:25 PM EDT Temperature 36.5 C (97.7 F) 11/11/2022 4:25 PM EDT Respiratory Rate 17 11/11/2022 4:25 PM EDT Oxygen Saturation 98% 11/11/2022 4:25 PM EDT Inhaled Oxygen Concentration - - Weight 98.4 kg (217 lb) 11/11/2022 2:06 PM EDT Height 177.8 cm (5' 10 ) 11/11/2022 2:06 PM EDT Body Mass Index 31.14 11/11/2022 2:06 PM EDT Plan of Treatment Health Maintenance Due Date Last Done Comments Adult Td,Tdap Booster 1954 LIPID PANEL 1954 DEPRESSION SCREENING 1966 SMOKING Hx and SMOKELESS TOB ACCO SCREENING 08/08/1967 HEPATITIS C SCREENING 1972 COLOGUARD 08/08/1999 COLONOSCOPY 08/08/1999 COLORECTAL CANCER SCREENING 08/08/1999 FIT TEST 08/08/1999 FOBT 08/08/1999 SIGMOIDOSCOPY 08/08/1999 VIRTUAL COLONOSCOPY 08/08/1999 PNEUMOCOCCAL VACCINES (50+ y ears) (1 of 1 - PCV) 2004 ZOSTER VACCINES (1 of 2) 2004 ABDOMINAL AORTIC ANEURYSM (A AA) SCREENING 08/08/2019 COVID-19 VACCINE (2023-2 5 season) 2023 RSV VACCINE (1 - 1-dose 75+ series) 2029 HEPATITIS A VACCINES Aged Out No long er eligible based on patient's age to complete this topic HIB VACCINES Aged Out No longer eligi ble based on patient's age to complete this topic MENINGOCOCCAL VACCINES (ACWY) Aged Out No longer eligible based on patient's age to complete this topic MENINGOCOCCAL VACCINES (B) Aged Out N o longer eligible based on patient's age to complete this topic Medical Devices Not on file Insurance MEDICARE PART A & [place] B [facility] MEDIC[facility] PART A & [place] A & [facility] [place] [place] [address] Care Teams Java Tech Lead Relationship Specialty Start Date End Date Pcp, Unknown PCP - General 11/11/22 Additional Source Comments The information contained in this document represents components of the legal health record. It is not the complete legal health record.[facility]
== END 2024-09-11 13:30 | disposition home or self-care (01) ==
LOC: HO.US 13:29
PROVIDERS: PCP Internal Medicine; Visit Provider Nurse Practitioner Family
DX: N43.40 Spermatocele of epididymis, unspecified (principal)
CPT/HCPCS: 76870

== ENCOUNTER → 2024-09-11 13:31 | Outpatient (BNV) | payer MEDICARE, MEDICAID, SELFPAY | PROVIDERS: PCP Internal Medicine; Visit Provider Radiology Diagnostic Radiology | DX: N45.1 Epididymitis (principal) | CPT/HCPCS: 76870 ==

== ENCOUNTER 2024-11-04 13:54 | Outpatient (AMB) | payer MEDICARE, MEDICAID, SELFPAY ==
--- NOTE | 2024-11-04 13:56 | MHC.OFFVIS ---
Intake Visit Reasons: 3M follow up/ US Intake Note: patient presents today for: 3mo follow up/US urology medications: none blood thinners: none US done: 09/11/24 Motor Vehicle Assembler Required: No Accompanied by: Self / Same As Patient Allergies No Known Allergies (No Known Allergies*) Allergy (Verified 11/04/24 14:08) HPI Comments Details: Wolfgang is a 69-year-old male patient of Dr. Gomez. He has a past medical history of anxiety, depression, prostate cancer, brain bleed, myocardial infarction, and hypertension. He presents to the office today for a follow up of his history of prostate cancer and for his bilateral spermatoceles. In discussion with the patient today reports to be doing and feeling well. He discusses having had a recent cardiac ablation with Dr. Aguilera. He denies having had any bothersome urinary issues or concerns since his last office visit here. He reports scrotal discomfort he had been experiencing he feels has improved. He does continue to report infrequent episodes of scrotal discomfort when crossing his legs at times he otherwise feels no bothersome urological issues or concerns. PSAs are as follows: 05/28 1.2, 11/27 1.4, 03/31 1.1, 04/29 1.1 Testosterone: 04/29 365 Patient with a previous history of prostate cancer and followed up with Urology at [facility] however unable to obtain previous urology records after multiple attempts. Recent scrotal imaging results reviewed with the patient today 08/29 bilateral epididymal cyst mild normal bilateral epididymal arterial and venous vascular flow on Doppler. Right testicular cyst and bilateral testes are stable. Right epididymal echogenic posterior classification, stable. Left scrotal teodoro stable.He otherwise denies any bothersome urinary issues. He denies urinary urgency, urinary frequency, incontinence, nocturia, hematuria, dysuria, foul smelling urine, changes to urinary stream, flank pain, fever, and or chills. He is happy with his current voiding parameters. In office urinalysis results reviewed with the patient today. All questions were answered. [facility] Medical History Anxiety and depression Brain bleed Prostate cancer Myocardial infarct HTN (hypertension) Surgical History S/P lumpectomy, right breast Family History Mother No problems noted. Father No problems noted. Social History Housing: House Alcohol intake: never Patient Tobacco Use Status: Current everyday Tobacco user Tobacco use type: Cigarette Cigarette Packs Per Day: 1.5 Cigarettes Per Day: 30 Years Smoked: 53 e-Cigarette/Vaping Use: Never Used Second Hand Smoke Exposure: Yes service: No Current occupational status: retired Cognitive needs: No Hearing needs: No Vision needs: Yes (glasses) Review of Systems Const Reports as per HPI Eyes Reports no additional complaints ENT Reports no additional complaints Card Reports as per HPI Resp Reports no additional complaints GI Reports no additional complaints Reports as per HPI Musc Reports no additional complaints Neuro Reports as per HPI Psych Reports as per HPI Endo Reports no additional complaints Physical Exam Const General: cooperative, comfortable, no acute distress, well developed, alert and awake Orientation/consciousness: patient oriented x3 Limitations: no limitations HEENT Head: Yes normal to inspection, Yes normocephalic and Yes atraumatic Ears: hearing grossly normal bilaterally Eyes General: appearance normal, both eyes and all related structures Neck Neck: Yes normal visual inspection and Yes trachea midline Chest Chest palpation & inspection: normal inspection of the chest Resp Effort & Inspection: normal respiratory effort and able to speak in complete sentences Cardio Rate: regular rate GI Inspection: Yes normal to inspection General: Yes no CVA tenderness Back/Spine/Pelvis Back: no CVA tenderness Skin General skin exam: no rashes or lesions noted Neuro General: patient oriented x3 Extrem General: Yes normal to inspection Psych Appearance: grossly normal and well kempt Mental Status: mental status grossly normal Speech and movement: Normal speech and movement present and Clear speech present Affect: normal affect Attitude: cooperative Thought process: Normal thought process present Thought content: Normal thought content present Insight: Fair insight present (Psych) Judgement: Fair judgement present (Psych) Results Reviewed Results Reviewed: Date of Service: 09/11/24 Procedure(s): US scrotum FINDINGS: RIGHT: Right testicle measures 3.9 x 1.9 x 2.3, volume 9.0 mL. Previously the volume was 9.95 mL. No focal testicular parenchymal lesions are visualized. Spectral Doppler analysis of the arterial and venous flow is normal in the right testis. There are prominent rete testes visualized. There is a right testicular cyst measuring 0.7 x 0.7 x 0.8 cm. Right epididymal head is normal in size. There are several anechoic cysts seen. Largest epididymal cyst measures 2.4 x 1.9 x 3.0 cm. Right epididymal tail echogenic foci, stable No right hydrocele or varicocele is seen. Right epididymal Doppler flow is normal. LEFT: Left testicle measures 4.6 x 2.0 x 2.7cm, volume 12.9mL. Previously the volume measured 11.7 mL. No focal testicular parenchymal lesions are visualized. Spectral Doppler analysis of the arterial and venous flow is normal in the left testis. There are prominent rete testes seen with a left scrotal teodoro measuring 0.7 x 0.6 x 0.6 cm. Left epididymal head is normal in size. There are left epididymal cyst measuring 6.7 x 3.3 x 5.7 cm measuring 0.7 x 0.6 x 0.6 cm. No left hydrocele or varicocele is seen. Left epididymal Doppler flow is normal.. IMPRESSION: Bilateral epididymal cyst mid normal bilateral epididymal arterial and venous vascular flow on Doppler. Right testicular cyst and bilateral testes are stable. Right epididymal echogenic posterior/calcification, stable. Left scrotal teodoro is stable. Assessment & Plan Assessment & Plan (1) Spermatocele: Code(s): N43.40 - Spermatocele of epididymis, unspecified Category: Medical (2) Prostate cancer: Code(s): C61 - Malignant neoplasm of prostate Category: Medical (3) Testicular cyst: Code(s): N44.2 - Benign cyst of testis Category: Medical Plan In office urinalysis results reviewed with the patient today; as noted above. Recent scrotal imaging results reviewed with the patient today; as noted above. Patient currently denies any bothersome urinary issues or concerns. He reports be happy with current voiding parameters. Will continue with surveillance monitoring. All questions were answered. Will obtain PSA. Follow-up in 6 months with PSA; or sooner with any issues, concerns, and or questions. Patient Instructions: The patient had an opportunity to ask questions regarding the treatment plan. All questions were answered. Physical exam, labs, and imaging were discussed and reviewed in detail. As well as risks, benefits, and discussion of treatment choices. No major barriers to understanding were identified. The patient expressed understanding and agreement with the above treatment plan. The patient was made aware they should contact our office by phone for worsening of their current condition, the appearance of new symptoms, or with any questions or concerns. Compliance is encouraged with any medications and follow up testing that is ordered. It is a privilege to be allowed the opportunity to participate in? your urological care.? Again, if you have any questions or concerns If you have any questions or concerns please do not hesitate to contact me. The office is [phone]. This note is constructed using voice recognition software. While every effort has been made to ensure accuracy youth ministry director errors may have been included. Yours sincerely, JOSUE Brown Coding Level of Care Code Est Pt Level 3 (66892) Complex EM visit Add On G2211 Diagnoses Spermatocele N43.40 Prostate cancer C61 Testicular cyst N44.2
--- OUTSIDE RECORDS SUMMARY | 2024-11-04 15:18 | XMS_ITS | Clinical Summary ---
Author Organization [facility] Address [address] [place] [address] Phone Care Team Providers Care Coating Machine Operator Name Role Phone Pcp, Unknown Primary Care [...] ABDOMINAL AORTIC ANEURYSM (A AA) SCREENING 08/08/2019 INFLUENZA VACCINE (#1) 2024 COVID-19 VACCINE ( - 2023-2 5 season) 2024 RSV VACCINE (1 - 1-dose 75+ series) [...] B [place] [employer] MEDIC[employer] PART A & [place] Member Subscriber Plan / Payer (Ef fective 1993-Present) Name:Wolfgang Canales Member ID:[id number] Relation to Subscriber:Self Name:Wolfgang Canales Subscriber ID:[id number] Payer ID:[id number] Group ID:Not on file Type:Medicare Address: [employer] [address] [address] [facility] MEDICARE PART A & B [place] [facility] [place] [phone] MEDICARE PART A & B [facility] [place] [id number] Care Teams Coating Machine Operator Relationship Specialty Start Date End Date Pcp, Unknown PCP - General 11/11/22 Additional Source Comments The information contained in this document represents components of the legal health record. It is not the complete legal health record.[facility]
== END 2024-11-04 14:30 | disposition home or self-care (01) ==
LOC: HO.HUSH 13:54
PROVIDERS: PCP Internal Medicine; Visit Provider Nurse Practitioner Family
DX: N43.40 Spermatocele of epididymis, unspecified (principal); C61 Malignant neoplasm of prostate; N44.2 Benign cyst of testis
CPT/HCPCS: 99213; G2211

== ENCOUNTER → 2024-11-04 13:54 | Outpatient (BNVA) | payer MEDICARE, MEDICAID, SELFPAY | PROVIDERS: PCP Internal Medicine; Visit Provider Nurse Practitioner Family | DX: Z71.2 Person consulting for explanation of examination or test findings (principal); N44.2 Benign cyst of testis; C61 Malignant neoplasm of prostate; N43.40 Spermatocele of epididymis, unspecified | CPT/HCPCS: 99212 ==

== ENCOUNTER 2024-11-13 13:11 | Outpatient (AMB) | payer MEDICARE, MEDICAID, SELFPAY ==
[2024-11-13 13:15] VITALS: BMI 32.3
--- NOTE | 2024-11-13 13:15 | MHC.AMNUTRGE ---
VS Expanded 11/13/24 13:15 Height 5 ft 9 in Weight 218 lb 11.177 oz BMI 32.3 Intake Visit Reasons: htn Allergies No Known Allergies (No Known Allergies*) Allergy (Verified 11/04/24 14:08) Nutrition Presentation Details: Pt presents for MNT follow up for HTN Last mnt visit 04/2024 Pt reports participating in meals on wheels, receives 2 meals/day Pt reports he is not ready to make diet modifications at this time [facility] Medical History Anxiety and depression Brain bleed Prostate cancer Myocardial infarct HTN (hypertension) Surgical History S/P lumpectomy, right breast Family History Mother No problems noted. Father No problems noted. Social History Housing: House Alcohol intake: never Patient Tobacco Use Status: Current everyday Tobacco user Tobacco use type: Cigarette Cigarette Packs Per Day: 1.5 Cigarettes Per Day: 30 Years Smoked: 53 e-Cigarette/Vaping Use: Never Used Second Hand Smoke Exposure: Yes service: No Current occupational status: retired Cognitive needs: No Hearing needs: No Vision needs: Yes (glasses) Assessment & Plan Assessment & Plan (1) Pure hypercholesterolemia: Comment: HTN , hypercholesterolemia Code(s): E78.00 - Pure hypercholesterolemia, unspecified Category: Medical Plan: Wt: 97 Kg ( 04/29 ), 99.5 kg(11/29) Est kcal needs as per MSJ: 2100 (40% carb, 30% protein/fat) Est fluid needs as per 25-30 ml/d: 2900 Est prot per day as per 1 g/kg bw: 100 Recommend fiber intake : 8-10 g per day and gradually increase to 25-28 g per day for women and 35-38 g for men or as tolerated Recommend sodium intake per day : less than 2000 mg Educated patient on: ( R = reviewed V = verbalizes understanding N/R = needs review N/A = not applicable Food sources of carbohydrate, adequate serving sizes and its role in various health conditions: R V N/R Differences between complex carbohydrates a simple carbohydrates, role of fiber in diet: R Lean protein sources of foods: R Differences between types of fats and role in diet (mono on saturated fat fatty acids, saturated fatty acids, trans fats): R basic low fat food concepts Food sources of sodium in salt and healthy modifications for heart health in kidney health: R Vitamins and minerals: R V N/R Healthy plate method concept: R Physical activity: Benefits a precaution: R V N/R hydration: Reviewed Patient Instructions: I encourage you to not add table salt to your foods, choose low sodium snack options (fruits with peanut butter, yogurts, unsalted crackers Drink water before each meals Try tuna fish with olive oil and vinegar on whole wheat bread and lettuce/tomato , twice a week (replacing higher sodium meats like salami/bologna sandwiches) (see low sodium meal options provided) Coding Level of Care Code Nutr Indiv Subseq (89145) Diagnoses Pure hypercholesterolemia E78.00 Time Spent (min) 30
== END 2024-11-13 14:14 | disposition home or self-care (01) ==
LOC: HO.ENCR 13:11
PROVIDERS: PCP Internal Medicine; Visit Provider Dietitian, Registered
DX: E78.00 Pure hypercholesterolemia, unspecified (principal)

== ENCOUNTER → 2024-11-13 13:11 | Outpatient (BNVA) | payer MEDICARE, MEDICAID, SELFPAY | PROVIDERS: PCP Internal Medicine; Visit Provider Dietitian, Registered | DX: E78.00 Pure hypercholesterolemia, unspecified (principal); Z71.3 Dietary counseling and surveillance | CPT/HCPCS: 97803 ==

== ENCOUNTER 2024-12-29 20:03 | Inpatient (IN) | payer MEDICARE, MEDICAID, SELFPAY ==
--- NOTE | 2024-12-29 | ECG_ITS ---
Test Reason : syncope Blood Pressure : */* mmHG Vent. Rate : 81 BPM Atrial Rate : 81 BPM P-R Int : 158 ms QRS Dur : 92 ms QT Int : 394 ms P-R-T Axes : -28 0 -3 degrees QTcB Int : 457 ms Normal sinus rhythm Incomplete right bundle branch block Borderline ECG When compared with ECG of 05-Aug-2022 14:44, Premature ventricular complexes are no longer Present Inverted T waves have replaced nonspecific T wave abnormality in Inferior leads Referred By: Generic ED Physician Electronically Signed By: Lev Montano
--- NOTE | ~2024-12-29 | CT_ITS ---
EXAMINATION: CT HEAD WITHOUT IV CONTRAST HISTORY: syncope. TECHNIQUE: Unenhanced helical CT of the head was performed per standard departmental protocol. Coronal and sagittal reformats of the head were also evaluated. One or more of the following techniques was used for dose reduction: Automated exposure control, adjustment of the mA and/or kV according to patient size, use of iterative reconstruction technique. DLP: 909 mGy-cm COMPARISON: Comparison is made with the prior examination dated 12/29/2024. FINDINGS: BRAIN: The brain parenchyma is unremarkable. There is normal de la cruz/white differentiation. The ventricular system is normal in size and configuration. There is no mass effect or midline shift. No intra- or extra-axial fluid collections are identified. SINUSES: The visualized paranasal sinuses are clear. The mastoid air cells and middle ear cavities are well pneumatized. ORBITS: The visualized orbits are unremarkable. BONES/SOFT TISSUES: The extracranial soft tissues are unremarkable. The calvarium is intact. No suspicious lytic or sclerotic lesions. CT/CT head/brain wo IV con IMPRESSION: No acute intracranial abnormality. Electronically signed by: Kuldeep Serrato MD 12/30/2024 11:08 AM [facility]
--- NOTE | ~2024-12-29 | CT_ITS ---
CLINICAL HISTORY: pe r o, sob, cp CT angiography chest with contrast. 3D Postprocessing. Comparison: None provided Findings: The heart size is normal. RV/LV ratio is normal. The thoracic aorta is normal caliber. No pulmonary artery filling defects. The visualized thyroid and mediastinum are unremarkable. Mild dependent atelectasis. No consolidation, pleural effusion, or pneumothorax. Right hepatic lobe cysts. No acute fractures. IMPRESSION: 1. No acute intrathoracic findings. This document has been electronically signed by: Kirt Horn MD on 12/29/2024 22:34:36
--- NOTE | ~2024-12-29 | MR_ITS ---
CLINICAL HISTORY: syncope, rule out stroke motion, reminders given, ran blades as possible MR Brain without gadolinium Comparison: CT/SR - CT HEAD WITHOUT IV CONTRAST - 12/30/24 10:[address]/SR - CT HEAD/BRAIN WO IV CON - 12/29/24 21:39 EST Findings: Thin extra-axial signal abnormalities ( mildly hyperintense to CSF on FLAIR, and isointense to white matter on T1) along the subdural areas of the frontal regions, possibly thin subdural hematomas. No correlate on the earlier noncontrast CT. No restricted diffusion. Few periventricular and subcortical T2 white matter hyperintensities likely chronic small-vessel ischemic changes. No midline shift. No hydrocephalus. Vascular flow voids are intact. The orbits are normal. The sinuses and mastoid air cells are clear. No focal bone lesion. IMPRESSION: 1. Possible thin subdural hematomas in frontal regions, new from recent CT. 2. No acute infarct. This document has been electronically signed by: Kirt Horn MD on 12/30/2024 19:49:03
--- NOTE | ~2024-12-29 | CT_ITS ---
CLINICAL HISTORY: ?confusion CT head without contrast Comparison: None provided Findings: No intra-axial mass, midline shift, hydrocephalus, or acute hemorrhage. No significant atrophy-like change or white matter disease. The visualized paranasal sinuses and mastoid air cells are normal. The orbits are within normal limits. No skull fracture. IMPRESSION: 1. No acute intracranial findings. This document has been electronically signed by: Kirt Horn MD on 12/29/2024 22:29:14
--- NOTE | ~2024-12-29 | CT_ITS ---
CLINICAL HISTORY: Dizziness subdural hematoma CT head without contrast Comparison: MR - MR HEAD/BRAIN WO CON - 12/30/24 18:[address]/SR - CT HEAD WITHOUT IV CONTRAST - 12/30/24 10:42 EST Findings: No intra-axial mass, midline shift, hydrocephalus, or acute hemorrhage. No significant atrophy-like change or white matter disease. There is no sinus or mastoid fluid. The orbits are unremarkable. There is no acute fracture. IMPRESSION: 1. No acute intracranial findings. Specifically, no CT evidence of subdural hematoma. This document has been electronically signed by: Les Landis MD on 01/04/2025 15:09:25
[2024-12-29 20:08] VITALS: BP 125/88; PULSE 90; O2SAT 96
[2024-12-29 20:14] VITALS: BP 114/73; PULSE 84; RESP 16; O2SAT 97; BMI 33.3
[2024-12-29 20:20] VITALS: PULSE 76
[2024-12-29 20:37] VITALS: BP 121/68; PULSE 78
[2024-12-29 20:40] LABS: MANUAL DIFF FLAG NO
[2024-12-29 20:42] LABS: Hematocrit 43.2 % (42.0-52.0); Hemoglobin 15.2 g/dl (14.0-18.0); Imm Gran Abs Auto 0.01 X10*3/uL (0.00-0.03); Imm Gran Pct Auto 0.1 % (0.0-0.4); Lymphocytes Absolute Auto 2.2 X10*3/uL (1.2-4.9); Mean Corpuscular HGB Conc 35.2 g/dl (31.0-36.0); Mean Corpuscular Hemoglobin 33.5 pg (27.0-33.0); Mean Corpuscular Volume 95.2 fL (80.0-98.0); NRBC Abs Auto 0.000 X10*3/uL (0.0-0.012); NRBC Pct Auto 0.0 /100WBC (0.0-0.2); Platelet Count 213 X10*3/uL (160-400); Red Blood Count 4.54 X10*6/uL (4.60-5.80); White Blood Count 7.8 X10*3/uL (4.8-10.8)
[2024-12-29 21:01] LABS: Albumin Level 4.5 g/dL (3.5-5.0); Alkaline Phosphatase 47 U/L (39-117); Anion Gap 13 (12-20); Aspartate Amino Transferase 55 U/L (5-37); Blood Urea Nitrogen 21 mg/dL (9-16); Calcium 9.2 mg/dL (8.4-10.2); Carbon Dioxide 21 mmol/L (22-29); Chloride 112 mmol/L (96-108); Creatinine Clr Calc Pharmacy 86.1; Estimated Glomerular Filt Rate > 60; Potassium 4.3 mmol/L (3.3-5.1); Sodium 142 mmol/L (135-145); Total Protein 7.4 g/dL (6.5-8.0)
[2024-12-29 21:03] LABS: Troponin-I High Sensitivity 2.7 ng/L (<3.5-35.0)
[2024-12-29 21:15] LABS: Alanine Aminotransferase 34 U/L (0-40)
[2024-12-29 21:27] LABS: Magnesium 2.1 mg/dL (1.6-2.6)
[2024-12-29 21:31] LABS: NT Pro B Type Natriuretic Pept 180.1 pg/mL (<300)
[2024-12-29 21:48] LABS: INTERNATIONAL NORM RATIO 1.0 (0.9-1.1); Prothrombin Time 11.7 SEC (11.2-13.5)
[2024-12-29] MEDS: iohexoL 350 MG/ML 100 ML INFUS..BTL IV (21:53)
[2024-12-29 22:05] LABS: Troponin-I High Sensitivity 3.6 ng/L (<3.5-35.0)
--- NOTE | 2024-12-29 22:18 | ED_ITS ---
HPI - Syncope General Chief Complaint: Syncope Stated Complaint: chest pain, sob Time Seen by Provider: 12/29/24 20:55 History of Present Illness ED Provider: Chelo Solano HPI narrative: 69-year-old male patient with a medical history that is significant for hypertension, SVT requiring adenosine and cardioversion in the past, prostate cancer, presents to the ED for evaluation of a near syncopal event that occurred at [facility]. He describes to be that he was in [facility] ordering his food when he suddenly felt very flushed and warm, as well as nauseated. He felt he is going to PU, so he left [facility] a went to the curb to vomit, but felt that he nearly passed out and came to his knees. He denies LOC. He endorsed an episode of chest tightness and shortness of breath. He felt this was the same as when he had prior cardiac stenting placed. Upon arrival to the ED he continued to report 10 out of 10 chest tightness substernally, and was given a sublingual nitroglycerin with full relief of his symptoms. He denies any active chest pain upon my assessment. Denies palpitations. No abdominal pain, nausea or vomiting, diarrhea or constipation. No fever, chills. No recent illnesses. No shortness of breath. He reports feeling foggy and off . Related Data Previous Rx's ?Medication ?Instructions ?Recorded cetirizine 10 mg tablet 10 mg PO DAILY PRN allergies #30 09/17/23 tabs gabapentin 300 mg capsule 300 mg PO BID #60 caps 09/29 metoprolol tartrate 25 mg tablet 12.5 mg (1/2 x 25 mg) PO BID 90 09/29/24 days #90 tabs naproxen 500 mg tablet 500 mg PO BID PRN pain #30 t abs 09/29/24 atorvastatin 40 mg tablet 40 mg PO DAILY #30 tabs 11/06 10/30 Allergies Allergy/AdvReac Type Severity Reaction Status Date / Time No Known Allergies (No Known Allergy Verified 12/29/24 20:17 Allergies*) Review of Systems 2 Review of Systems: ROS is otherwise negative unless mentioned in HPI. PMFSH Past Medical History Medical History Anxiety and depression Brain bleed Prostate cancer Myocardial infarct HTN (hypertension) Surgical History S/P lumpectomy, right breast Family History Family History Mother No problems noted. Father No problems noted. Social History Social History Housing: House Alcohol intake: never Patient Tobacco Use Status: Current everyday Tobacco user Tobacco use type: Cigarette Cigarette Packs Per Day: 1.5 Cigarettes Per Day: 30 Years Smoked: 53 Smoked in Last 30 Days: Yes e-Cigarette/Vaping Use: Never Used Second Hand Smoke Exposure: Yes Use of substances other than those prescribed or required for medical reasons: No Advance Directives: No Advance Directives Information Provided: No Do you have a plan to hurt others: No Plan service: No Current occupational status: retired Cognitive needs: No Hearing needs: No Vision needs: Yes (glasses) Physical Exam 2 Exam: Exam: Nursing notes and vital signs reviewed. Constitutional: Well-appearing, NAD. Alert. Oriented X3. Eyes: EOMI. ENT: Pharynx normal. Neck: Normal inspection. Neck supple. CVS: Normal heart rate and rhythm. Pulses normal. Respiratory: No respiratory distress. Breath sounds normal. Abdomen: Soft and nontender. Skin: Skin warm and dry. Normal skin color. Extremities: No lower extremity edema. Neuro: Oriented X 3. No motor deficit. Vital Signs: Vital Signs: Last Vital Signs Temp 98.3 F 12/29/24 22:25 Pulse 87 12/29/24 22:25 Resp 14 12/29/24 22:25 BP 108/58 L 12/29/24 22:25 Pulse Ox 98 12/29/24 22:25 O2 Del Method Room Air 12/29/24 22:25 BMI result Body Mass Index 33.3 Medications Administered Discontinued Medications Generic Name Dose Route Start Last Admin Trade Name Freq PRN Reason Stop Dose Admin Iohexol 100 ml 12/29/24 21:53 12/29/24 21:53 Iohexol 350 Mg/Ml 100 Ml Infus..Btl IV 12/29/24 21:54 70 ml ONCE ONE Administration Nitroglycerin 0.4 mg 12/29/24 20:31 12/29/24 20:37 Nitroglycerin 0.4 Mg Tab.Subl SUBLINGUAL 12/29/24 20:32 0.4 mg ONCE ONE Administration Medical Decision Making Medical Decision Making [facility] Narrative: Upon my initial assessment of this patient, as able to review his lab work, EKG. He tells me the story of how use that [employer] trying to order something when he suddenly felt nauseated, lightheaded, and developed substernal chest pain or shortness of breath. He believes he had an episode where he maybe passed out, though intermittently tells me he did pass out, then tells me he did not pass out completely. His lab work has been overall reassuring, no leukocytosis. His AST is mildly elevated, though has been previously. ALT is normal. To flat troponins, 2.7, 3.6. Pro-BNP 180. His EKG shows a incomplete right bundle-branch block, otherwise normal sinus rhythm and similar to previous. With concern for underlying PE driving his syncope, CTA of the chest was obtained, which is negative. With concern he may have underlying intracranial abnormalities such as infarct, ICH, CT of the head was obtained which is negative as well. Currently pending a urinalysis. He received a dose of sublingual nitroglycerin prior to my assessment and reportedly felt as though his pain had completely resolved. Upon my review of his chart, his last echo and stress test was 2022. Given the elevated heart score, this warrants admission for further workup at this time. He does tell me that he had a cardiac catheterization a period of time ago but can not recall the details, tells me he had stents placed at that time, but that was at [facility]. I do not have access to review these records. Patient is agreeable with admission plan. Sign-out to hospitalist. Differential Diagnosis Differential Diagnoses: The differential diagnosis associated with the presentation includes ACS, mi, PE, arrhythmia, electrolyte abnormality, syncope, near-syncope, intracranial hemorrhage or infarct Admission/Observation Consideration of admission/observation: Escalation of care including admission/observation considered (Indicated given the near syncopal event, with last stress test and echo from 2022.) Consult Healthcare Provider Management of the patient was discussed with: Hospitalist Lab Data [facility] Lab Attestation statement: I reviewed the patient's lab results. (Overall reassuring, flat troponin.) 12/29/24 20:35 12/29/24 20:35 Labs: Lab Results 12/29/24 12/29/24 Range/Units 20:35 21:24 WBC 7.8 (4.8-10.8) X10*3/uL RBC 4.54 L (4.60-5.80) X10*6/uL Hgb 15.2 (14.0-18.0) g/dl Hct 43.2 (42.0-52.0) % MCV 95.2 (80.0-98.0) fL MCH 33.5 H (27.0-33.0) pg MCHC 35.2 (31.0-36.0) g/dl RDW 12.3 (11.0-16.0) % Plt Count 213 (160-400) X10*3/uL MPV 10.6 (9.4-12.4) fL Immature Gran % (Auto) 0.1 (0.0-0.4) % Neut % (Auto) 59.4 (45-73) % Lymph % (Auto) 27.4 (20-40) % [place] % (Auto) 9.4 (2-11) % Eos % (Auto) 3.1 (0-4) % Baso % (Auto) 0.6 (0-2) % Lymph # (Auto) 2.2 (1.2-4.9) X10*3/uL [place] # (Auto) 0.7 (0.1-1.2) X10*3/uL Eos # (Auto) 0.2 (0.0-0.4) X10*3/uL Baso # (Auto) 0.1 (0.0-0.2) X10*3/uL Abs Immat Gran (auto) 0.01 (0.00-0.03) X10*3/uL Absolute Neuts (auto) 4.7 (2.0-8.3) x10*3/uL Absolute Nucleated RBC 0.000 (0.0-0.012) X10*3/uL Nucleated RBC % (auto) 0.0 (0.0-0.2) /100WBC PT 11.7 (11.2-13.5) SEC INR 1.0 (0.9-1.1) Sodium 142 (135-145) mmol/L Potassium 4.3 (3.3-5.1) mmol/L Chloride 112 H (96-108) mmol/L Carbon Dioxide 21 L (22-29) mmol/L Anion Gap 13 (12-20) BUN 21 H (9-16) mg/dL Creatinine 0.94 (0.5-1.4) mg/dL Estim Creat Clear Calc 86.1 Estimated GFR > 60 Random Glucose 84 (60-115) mg/dL Calcium 9.2 (8.4-10.2) mg/dL Magnesium 2.1 (1.6-2.6) mg/dL Total Bilirubin 0.8 (0.0-1.0) mg/dL Direct Bilirubin 0.3 (0.0-0.5) mg/dL AST 55 H (5-37) U/L ALT 34 (0-40) U/L Alkaline Phosphatase 47 (39-117) U/L Troponin I High Sens 2.7 3.6 (<3.5-35.0) ng/L NT-Pro-B Natriuret Pep 180.1 (<300) pg/mL Total Protein 7.4 (6.5-8.0) g/dL Albumin 4.5 (3.5-5.0) g/dL Independent Interpretation I performed an independent interpretation of an: EKG Interpretation: Rate: 81 Rhythm: NSR [place]: -28/0/-3 Normal P waves. Normal IRINEO. Normal QRS complex. ST T wave : no dep, elev qTC:457 prior studies:similar The study has been interpreted contemporaneously by me. Radiology Impression Discussion of test interpretation with radiology: I have reviewed the radiologist's reading. Radiologist Impression: CTA Chest PE: IMPRESSION: 1. No acute intrathoracic findings. CT Head WO: IMPRESSION: 1. No acute intracranial findings. Independent Historian Clinical information obtained from an independent historian. History obtained from or confirmed by: EMS External Record Review External record reviewed: Inpatient record, Office record (cardiology) and Outpatient record Chronic Conditions Patient?s care impacted by: Hypertension and Other (CAD) Social Determinants Patient?s care significantly limited by Social Determinants of Health including: Inadequate housing, Low income and Problems related to primary support group Discharge Plan Discharge Clinical Impression: Syncope Qualifiers: Syncope type: unspecified Qualified Code(s): R55 - Syncope and collapse Patient Disposition: Admitted As Inpatient Print Language: Tristanian
[2024-12-29 22:25] VITALS: BP 108/58; PULSE 87; RESP 14; TEMP 36.8; O2SAT 98
--- OUTSIDE RECORDS SUMMARY | 2024-12-29 22:39 | XMS_ITS | Clinical Summary ---
Author Organization [facility] Address [address] [place] [id number] Phone Care Team Providers Care Drop Machine Operator Name Role Phone Pcp, Unknown [...] VACCINE (#1) 2024 COVID-19 VACCINE ( - 2024-2 6 season) 2024 RSV VACCINE (1 - 1-dose [...] B [place] B [employer] MEDIC[employer] PART A & [place] B Member Subscriber Plan / Payer (Ef fective 1993-Present) Name:Wolfgang Canales Member ID:[id number] Relation to Subscriber:Self Name:Wolfgang Canales Subscriber ID:[id number] Payer ID:[id number] Group ID:Not on file Type:Medicare Address: [employer] [address] [address] [facility] MEDICARE PART A & B [place] [facility] [place] [id number] MEDICARE PART A & B [facility] [place] [phone] Care Teams Drop Machine Operator Relationship Specialty Start Date End Date Pcp, Unknown PCP - General 11/11/22 Additional Source Comments The information contained in this document represents components of the legal health record. It is not the complete legal health record.[facility]
--- NOTE | 2024-12-29 23:26 | PC.NURSE ---
report to igor LANDIS
--- NOTE | 2024-12-29 23:41 | P.HPHOSP_ITS ---
History of Present Illness Date of Service: 12/29/24 Chief Complaint: syncope 69M PMH SVT status post ablation 06/2024, prostate CA, hypertension, hyperlipidemia, depression, intracranial hemorrhage 1995 presented with syncope. Patient is a vague historian but reports that on day of presentation he was waiting in line at [employer] and started to feel nauseous and warm. He has started to go outside to throw up and pushes and then fell on sidewalk. Denies any trauma. He is unclear whether he completely lost consciousness. Woke up right away denies any incontinence. He states it feels similar to previous SVT episodes. Reports vague chest tightness. In ED EKG unremarkable, troponin negative, CTA chest and head CT negative. Review of Systems 2 Review of Systems: Yes all other systems are reviewed and are negative [facility] Medical History Anxiety and depression Brain bleed Prostate cancer Myocardial infarct HTN (hypertension) Family History Mother No problems noted. Father No problems noted. Surgical History S/P lumpectomy, right breast Social History Housing: House Alcohol intake: never Patient Tobacco Use Status: Current everyday Tobacco user Tobacco use type: Cigarette Cigarette Packs Per Day: 1.5 Cigarettes Per Day: 30 Years Smoked: 53 Smoked in Last 30 Days: Yes e-Cigarette/Vaping Use: Never Used Second Hand Smoke Exposure: Yes Use of substances other than those prescribed or required for medical reasons: No Advance Directives: No Advance Directives Information Provided: No Do you have a plan to hurt others: No Plan service: No Current occupational status: retired Cognitive needs: No Hearing needs: No Vision needs: Yes (glasses) Meds Allergies Allergy/AdvReac Type Severity Reaction Status Date / Time No Known Allergies (No Known Allergy Verified 12/29/24 20:17 Allergies*) Active Medications: Current Medications Acetaminophen (Acetaminophen 325 Mg Tablet) 650 mg PO Q6H PRN PRN Reason: Pain, Mild 1-3,fever,headache Calcium Carbonate (Calcium Carbonate 750 Mg Tab.Chew) 750 mg PO Q4H PRN PRN Reason: Heartburn Enoxaparin Sodium (Enoxaparin Sodium 40 Mg/0.4 Ml Syringe) 40 mg SUBCUT Q24H CORDELIA Magnesium Hydroxide (Milk Of Magnesia 30 Ml Oral.Susp) 30 ml PO DAILY PRN PRN Reason: Constipation Melatonin (Melatonin 3 Mg Tablet) 6 mg PO BEDTIME PRN PRN Reason: Insomnia Sodium Chloride (0.9 % Sodium Chloride Flush 3 Ml Syringe) 3 ml IVFLUSH QSHIFT CORDELIA Physical Exam 2 Vital Signs and Narrative: Vital Signs: Last Vital Signs Temp 98.3 F 12/29/24 22:25 Pulse 87 12/29/24 22:25 Resp 14 12/29/24 22:25 BP 108/58 L 12/29/24 22:25 Pulse Ox 98 12/29/24 22:25 O2 Del Method Room Air 12/29/24 22:25 BMI result Body Mass Index 33.3 General: AO X 3, no acute distress Resp: CTA bilateral, no accessory muscles used CVS: S1,S2,RRR GI: soft, non tender, non distended Neuro: motor grossly intact, alert, expressive aphasia Psych: appropriate affect, questionable insight Results Labs 12/29/24 20:35 12/29/24 20:35 Labs: Laboratory Results - last 24 hr 12/29/24 12/29/24 20:35 21:24 MCV 95.2 MCH 33.5 H MCHC 35.2 RDW 12.3 Plt Count 213 MPV 10.6 Immature Gran % (Auto) 0.1 Neut % (Auto) 59.4 Lymph % (Auto) 27.4 Rich % (Auto) 9.4 Eos % (Auto) 3.1 Baso % (Auto) 0.6 Lymph # (Auto) 2.2 Rich # (Auto) 0.7 Eos # (Auto) 0.2 Baso # (Auto) 0.1 Abs Immat Gran (auto) 0.01 Absolute Neuts (auto) 4.7 Absolute Nucleated RBC 0.000 Nucleated RBC % (auto) 0.0 PT 11.7 INR 1.0 Anion Gap 13 Estim Creat Clear Calc 86.1 Estimated GFR > 60 Random Glucose 84 Calcium 9.2 Magnesium 2.1 Total Bilirubin 0.8 Direct Bilirubin 0.3 AST 55 H ALT 34 Alkaline Phosphatase 47 Troponin I High Sens 2.7 3.6 NT-Pro-B Natriuret Pep 180.1 Total Protein 7.4 Albumin 4.5 Assessment and Plan (1) HTN (hypertension): Qualifiers: Hypertension type: unspecified Qualified Code(s): I10 - Essential (primary) hypertension Status: Acute Plan 69M PMH SVT status post ablation 06/2024, prostate CA, hypertension, hyperlipidemia, depression, intracranial hemorrhage 1995 presented with syncope Syncope ?SVT Monitor telemetry, cardio eval Continue metoprolol Hyperlipidemia Statin DVT prophylaxis with Lovenox Full code Quality Stroke Does the patient have a stroke diagnosis?: No VTE Prior VTE?: No VTE Risk Level:: Medical - moderate - high VTE Device Contraindication: Treatment Not Indicated VTE Drug Contraindication: N/A - Med Ordered
--- NOTE | 2024-12-29 23:41 | PC.NURSE ---
MD at patient bedside at this time
[2024-12-29 23:43] LABS: Appearance Urine Clear; Glucose Urine UA Negative (Negative); PH 5.5 (5.0-9.0); Specific Gravity - Urine >= 1.030 (1.005-1.025)
--- NOTE | 2024-12-30 | EEG_ITS ---
History: seizure, anxiety, depression, brain bleed, prostate cancer, myocardial infarct, HTN, hyperlipidemia Medication: acetaminophen, atorvastatin calcium, calcium carbonate, enoxaparin sodium, gabapentin, magnesium hydroxide, melatonin, meoprolol tartrate, sodium chloride Technical description:? Photic stimulation: Yes Hyperventilation:?Yes Behavioral state: Cooperative State of Consciousness: Awake Skull defect: None Sedation: None Handedness: Right Duration of study:? 30min ? ? 10sec Description: Waking background activity consists of a well-defined 9 hertz posterior alpha frequency intermixed anteriorly with low-voltage fast frequencies and eye movement artifacts. Drowsiness is characterized by diffuse theta slowing. Sleep stages I entered briefly with the appearance of frontocentral sleep spindles. Rare instances of isolated sharp transients are seen from the left temporal region. Photic stimulation and hyperventilation are without activation. Impression: This awake and sleep EEG is considered within normal limits with the exception of rare sharp transients in the left temporal region suggestive of a minimal cerebral irritability in the left temporal region. These findings are not developed well enough to be diagnostic for a seizure disorder. Clinical correlation is suggested MTDD
[2024-12-30 00:37] LABS: Resp Syncy Virus RNA Qual PCR NEGATIVE (Negative); SARS COV2 PCR INHOUSE NEGATIVE (Negative)
--- NOTE | 2024-12-30 00:56 | HO.NURTONUR ---
pt came in for near syncope and c/o of trouble. CT all negative. pt has 2 access on upper arm on left and right wrist. rec NTG after arrival and gave tylenol for headache 03/17. patient is aox4. some times of forgetfulness. uses urinal.
--- NOTE | 2024-12-30 01:33 | PC.NURSE ---
pt being transported to tele room 469 at this time. left department in stable condition
[2024-12-30 01:41] VITALS: BMI 29.4
[2024-12-30 02:01] VITALS: BP 129/71; PULSE 86; RESP 18; TEMP 36.6; O2SAT 96
[2024-12-30] MEDS: 0.9 % Sodium Chloride Flush 3 ML SYRINGE IVFLUSH ×4 (02:02→21:30)
[2024-12-30 07:04] VITALS: BP 119/70; PULSE 74; RESP 18; TEMP 36.2; O2SAT 98
[2024-12-30 07:12] LABS: Hematocrit 41.1 % (42.0-52.0); Hemoglobin 14.2 g/dl (14.0-18.0); Mean Corpuscular HGB Conc 34.5 g/dl (31.0-36.0); Mean Corpuscular Hemoglobin 33.4 pg (27.0-33.0); Mean Corpuscular Volume 96.7 fL (80.0-98.0); NRBC Abs Auto 0.000 X10*3/uL (0.0-0.012); NRBC Pct Auto 0.0 /100WBC (0.0-0.2); Platelet Count 196 X10*3/uL (160-400); Red Blood Count 4.25 X10*6/uL (4.60-5.80); White Blood Count 6.6 X10*3/uL (4.8-10.8)
[2024-12-30 07:38] LABS: Anion Gap 12 (12-20); Blood Urea Nitrogen 20 mg/dL (9-16); Calcium 8.3 mg/dL (8.4-10.2); Carbon Dioxide 23 mmol/L (22-29); Chloride 113 mmol/L (96-108); Creatinine Clr Calc Pharmacy 79.5; Estimated Glomerular Filt Rate > 60; Magnesium 2.1 mg/dL (1.6-2.6); Potassium 3.7 mmol/L (3.3-5.1); Sodium 144 mmol/L (135-145); Troponin-I High Sensitivity 2.9 ng/L (<3.5-35.0)
[2024-12-30] MEDS: Metoprolol Tartrate 12.5 MG HALFTAB PO (08:39)
--- NOTE | 2024-12-30 10:08 | PHA.MEDREC ---
Addendum entered by Eliezer Hardy RPh 12/30/24 10:35: MED REC REVIEWED BY [facility] Original Note: Pharmacy Consult ? Medication Reconciliation Pharmacy has completed the medication reconciliation. Spoke with pt and he confirmed his medications. Pt takes his Metoprolol Tartrate 25mg tab once daily; original directions written for 1/2 tab (12.5mg) BID and pt was unsure the last time he took his medicaitons at this time.
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
[2024-12-30 11:22] VITALS: BP 136/80; PULSE 70; RESP 18; TEMP 36.1; O2SAT 98
[2024-12-30 12:41] LABS: Cannabinoid Screen Urine POSITIVE (Not Detect)
--- NOTE | 2024-12-30 13:38 | PM.CNCAR ---
History of Present Illness History of Present Illness Date of Service: 12/30/24 Requesting physician: Jarrett Salas Chief complaint: Syncope Narrative: 69-year-old gentleman presenting with syncope. He has background history of cerebral hemorrhage and SVT. He is quite disoriented currently and unable to give a clear history. It is reported that he was in [employer] and apparently passed out. He is saying that he remembers going out to buy food and then remember himself throwing up next to bushes. He has no recollection what happened after that. He is also quite slow in answering questions currently and feels quite confused. He is saying that he is sometimes blank stare early as per reports from other. He has history of substance abuse 30 years ago but not recently. He is denying any other issues currently. No chest discomfort or shortness of breath. [facility] Past Medical History Medical History Anxiety and depression Brain bleed Prostate cancer Myocardial infarct HTN (hypertension) Family History Family History Mother No problems noted. Father No problems noted. Surgical History Surgical History S/P lumpectomy, right breast Social History Social History Household Members: None Housing: Apartment Do you presently have visiting nurse or other home services: No Alcohol intake: never Comment: Seizure precaution in place and neuro consult for mental status change Patient Tobacco Use Status: Current everyday Tobacco user Tobacco use type: Cigarette Cigarette Packs Per Day: 1 Cigarettes Per Day: 20.0 Years Smoked: 55 Smoked in Last 30 Days: Yes e-Cigarette/Vaping Use: Never Used Patient Interested in Nicotine Replacement: No Patient Given Instructions on How to Stop Smoking: Yes Date Education Initiated: 12/30/24 Second Hand Smoke Exposure: No Use of substances other than those prescribed or required for medical reasons: No Currently Displaying Signs/Symptoms of Drug Intoxication Withdrawal: No Have you been hit, kicked, punched, or otherwise hurt by someone within the past year? If so, by whom?: No Do you feel safe in your current relationship?: No Current Relationship Is there a partner from a previous relationship who is making you feel unsafe now?: No Are you made to feel afraid or neglected: No Advance Directives: No Advance Directives Information Provided: No Do you have a plan to hurt others: No Plan Recently lost weight without trying: Unsure How much weight loss: Unsure Eating poorly because of decreased appetite: No Nutrition screen score: 4 Nutrition Risks: No Nutritional Risk Poor oral hygiene: No service: No Current occupational status: retired Cognitive needs: No Hearing needs: No Vision needs: Yes (glasses) Meds Allergies Allergy/AdvReac Type Severity Reaction Status Date / Time No Known Allergies (No Known Allergy Verified 12/29/24 20:17 Allergies*) Active Medications: Current Medications Acetaminophen (Acetaminophen 325 Mg Tablet) 650 mg PO Q6H PRN PRN Reason: Pain, Mild 1-3,fever,headache Last Admin: 12/29/24 23:44 Dose: 650 mg Atorvastatin Calcium (Atorvastatin Calcium 40 Mg Tablet) 40 mg PO BEDTIME [facility] Calcium Carbonate (Calcium Carbonate 750 Mg Tab.Chew) 750 mg PO Q4H PRN PRN Reason: Heartburn Enoxaparin Sodium (Enoxaparin Sodium 40 Mg/0.4 Ml Syringe) 40 mg SUBCUT Q24H [facility] Last Admin: 12/30/24 08:39 Dose: 40 mg Gabapentin (Gabapentin 300 Mg Capsule) 300 mg PO BID [facility] Last Admin: 12/30/24 08:39 Dose: 300 mg Magnesium Hydroxide (Milk Of Magnesia 30 Ml Oral.Susp) 30 ml PO DAILY PRN PRN Reason: Constipation Melatonin (Melatonin 3 Mg Tablet) 6 mg PO BEDTIME PRN PRN Reason: Insomnia Metoprolol Tartrate (Metoprolol Tartrate 12.5 Mg Halftab) 12.5 mg PO BID [facility]; Protocol Last Admin: 12/30/24 08:39 Dose: 12.5 mg Sodium Chloride (0.9 % Sodium Chloride Flush 3 Ml Syringe) [address] [facility] Last Admin: 12/30/24 08:40 Dose: 3 ml Home Medications ?Medication ?Instructions ?Recorded ?Confirmed ?Last Taken ?Type metoprolol tartrate 25 mg tablet 25 mg PO DAILY 12/30/24 12/30/24 Unknown History Physical Exam Vital Signs: Vital Signs: Last Vital Signs Temp 96.9 F 12/30/24 11:22 Pulse 70 12/30/24 11:22 Resp 18 12/30/24 11:22 BP 136/80 12/30/24 11:22 Pulse Ox 98 12/30/24 11:22 O2 Del Method Room Air 12/30/24 11:22 BMI result Body Mass Index 29.4 GENERAL APPEARANCE: Confused and disoriented. NECK: no carotid bruit, no jugular venous distention. SKIN: no suspicious lesions, warm and dry. HEART: no murmurs, regular rate and rhythm. LUNGS: clear to auscultation bilaterally. ABDOMEN: soft, nontender. EXTREMITIES: no edema. PERIPHERAL PULSES: equal. NEUROLOGIC: No gross deficits, confused. Objective Labs and Meds 12/30/24 06:48 12/30/24 06:48 Lab results: Laboratory Results - last 24 hr 12/29/24 12/29/24 12/29/24 20:35 21:24 23:38 WBC 7.8 RBC 4.54 L Hgb 15.2 Hct 43.2 MCV 95.2 MCH 33.5 H MCHC 35.2 RDW 12.3 Plt Count 213 MPV 10.6 Immature Gran % (Auto) 0.1 Neut % (Auto) 59.4 Lymph % (Auto) 27.4 [place] % (Auto) 9.4 Eos % (Auto) 3.1 Baso % (Auto) 0.6 Lymph # (Auto) 2.2 [place] # (Auto) 0.7 Eos # (Auto) 0.2 Baso # (Auto) 0.1 Abs Immat Gran (auto) 0.01 Absolute Neuts (auto) 4.7 Absolute Nucleated RBC 0.000 Nucleated RBC % (auto) 0.0 PT 11.7 INR 1.0 Sodium 142 Potassium 4.3 Chloride 112 H Carbon Dioxide 21 L Anion Gap 13 BUN 21 H Creatinine 0.94 Estim Creat Clear Calc 86.1 Estimated GFR > 60 Random Glucose 84 Lactic Acid Calcium 9.2 Magnesium 2.1 Total Bilirubin 0.8 Direct Bilirubin 0.3 AST 55 H ALT 34 Alkaline Phosphatase 47 Total Creatine Kinase Troponin I High Sens 2.7 3.6 NT-Pro-B Natriuret Pep 180.1 Total Protein 7.4 Albumin 4.5 TSH Urine Color Yellow Urine Appearance Clear Urine pH 5.5 Ur Specific [place] >= 1.030 H Urine Protein Trace Urine Glucose (UA) Negative Urine Ketones Negative Urine Blood Negative Urine Nitrite Negative Ur Leukocyte Esterase Negative Urine Opiates Screen Ur Buprenorphine Scrn Ur Oxycodone Screen Urine Methadone Screen Urine Fentanyl Screen Ur Barbiturates Screen Ur Phencyclidine Scrn Ur Amphetamines Screen U Benzodiazepines Scrn Urine Cocaine Screen U Marijuana (THC) Screen Influenza Type A (PCR) Influenza Type B (PCR) RSV RNA Qual (PCR) SARS-CoV-2 RNA (RT-PCR) 12/29/24 12/30/24 12/30/24 23:49 06:48 08:59 WBC 6.6 RBC 4.25 L Hgb 14.2 Hct 41.1 L MCV 96.7 MCH 33.4 H MCHC 34.5 RDW 12.4 Plt Count 196 MPV 10.6 Immature Gran % (Auto) Neut % (Auto) Lymph % (Auto) [place] % (Auto) Eos % (Auto) Baso % (Auto) Lymph # (Auto) [place] # (Auto) Eos # (Auto) Baso # (Auto) Abs Immat Gran (auto) Absolute Neuts (auto) Absolute Nucleated RBC 0.000 Nucleated RBC % (auto) 0.0 PT INR Sodium 144 Potassium 3.7 Chloride 113 H Carbon Dioxide 23 Anion Gap 12 BUN 20 H Creatinine 0.96 Estim Creat Clear Calc 79.5 Estimated GFR > 60 Random Glucose 96 Lactic Acid 1.1 Calcium 8.3 L D Magnesium 2.1 Total Bilirubin Direct Bilirubin AST ALT Alkaline Phosphatase Total Creatine Kinase 755 H Troponin I High Sens 2.9 NT-Pro-B Natriuret Pep Total Protein Albumin TSH 2.89 Urine Color Urine Appearance Urine pH Ur Specific [place] Urine Protein Urine Glucose (UA) Urine Ketones Urine Blood Urine Nitrite Ur Leukocyte Esterase Urine Opiates Screen Ur Buprenorphine Scrn Ur Oxycodone Screen Urine Methadone Screen Urine Fentanyl Screen Ur Barbiturates Screen Ur Phencyclidine Scrn Ur Amphetamines Screen U Benzodiazepines Scrn Urine Cocaine Screen U Marijuana (THC) Screen Influenza Type A (PCR) NEGATIVE Influenza Type B (PCR) NEGATIVE RSV RNA Qual (PCR) NEGATIVE SARS-CoV-2 RNA (RT-PCR) NEGATIVE 12/30/24 12:02 WBC RBC Hgb Hct MCV MCH MCHC RDW Plt Count MPV Immature Gran % (Auto) Neut % (Auto) Lymph % (Auto) [place] % (Auto) Eos % (Auto) Baso % (Auto) Lymph # (Auto) [place] # (Auto) Eos # (Auto) Baso # (Auto) Abs Immat Gran (auto) Absolute Neuts (auto) Absolute Nucleated RBC Nucleated RBC % (auto) PT INR Sodium Potassium Chloride Carbon Dioxide Anion Gap BUN Creatinine Estim Creat Clear Calc Estimated GFR Random Glucose Lactic Acid Calcium Magnesium Total Bilirubin Direct Bilirubin AST ALT Alkaline Phosphatase Total Creatine Kinase Troponin I High Sens NT-Pro-B Natriuret Pep Total Protein Albumin TSH Urine Color Urine Appearance Urine pH Ur Specific [place] Urine Protein Urine Glucose (UA) Urine Ketones Urine Blood Urine Nitrite Ur Leukocyte Esterase Urine Opiates Screen Not Detected Ur Buprenorphine Scrn Not Detected Ur Oxycodone Screen Not Detected Urine Methadone Screen Not Detected Urine Fentanyl Screen Not Detected Ur Barbiturates Screen Not Detected Ur Phencyclidine Scrn Not Detected Ur Amphetamines Screen Not Detected U Benzodiazepines Scrn Not Detected Urine Cocaine Screen Not Detected U Marijuana (THC) Screen POSITIVE H Influenza Type A (PCR) Influenza Type B (PCR) RSV RNA Qual (PCR) SARS-CoV-2 RNA (RT-PCR) Imaging Radiologist's impression: Impressions Head CT 12/30/24 10:42 IMPRESSION: No acute intracranial abnormality. Electronically signed by: Kuldeep Serrato MD 12/30/2024 11:08 AM [facility] Assessment and Plan (1) Syncope: Qualifiers: Syncope type: unspecified Qualified Code(s): R55 - Syncope and collapse Status: Acute Plan 69-year-old gentleman presenting with syncope. He has background history of supraventricular tachycardia. He also has clinical story concerning for absence seizures. Check orthostatic vital signs. Neurology workup as you are planning. Work him up for any infection. Monitor on telemetry for any arrhythmia. Thank you for allowing me to participate in the care of your patient. Please feel free to contact me if you have any questions. Procedures Date of Service Date of Service: 12/30/24
--- NOTE | 2024-12-30 14:23 | P.PNIM_ITS ---
Subjective Subjective Date of Service: 12/30/24 Interval History: Patient seen and examined at bedside this morning, patient admitted for syncope, at this time patient is somnolent, with encephalopathy, alert and oriented only to self. Review of Systems Review of Systems: Yes all other systems are reviewed and are negative Physical Exam 2 Exam: Exam: General: Somnolent oriented to self, No acute distress Head: AT/NC ENT: Moist mucous membranes Neck: supple CVS; RRR, S1 S2 normal Lungs: Clear bilateral breath sounds, no wheezes or crackles Abd: Soft non tender, non distended Ext: No edema and no calf tenderness MSK: moving all 4 limbs Skin: No cyanosis or edema Psych: UTO Neurology: UTO Vital Signs: Vital Signs: Last Vital Signs Temp 96.9 F 12/30/24 11:22 Pulse 70 12/30/24 11:22 Resp 18 12/30/24 11:22 BP 136/80 12/30/24 11:22 Pulse Ox 98 12/30/24 11:22 O2 Del Method Room Air 12/30/24 11:22 BMI result Body Mass Index 29.4 Objective Data Active Medications Acetaminophen (Acetaminophen 325 Mg Tablet) 650 mg PO Q6H PRN PRN Reason: Pain, Mild 1-3,fever,headache Last Admin: 12/29/24 23:44 Dose: 650 mg Documented By: NICK Atorvastatin Calcium (Atorvastatin Calcium 40 Mg Tablet) 40 mg PO BEDTIME [facility] Calcium Carbonate (Calcium Carbonate 750 Mg Tab.Chew) 750 mg PO Q4H PRN PRN Reason: Heartburn Enoxaparin Sodium (Enoxaparin Sodium 40 Mg/0.4 Ml Syringe) 40 mg SUBCUT Q24H [facility] Last Admin: 12/30/24 08:39 Dose: 40 mg Documented By: KIMO Gabapentin (Gabapentin 300 Mg Capsule) 300 mg PO BID [facility] Last Admin: 12/30/24 08:39 Dose: 300 mg Documented By: KIMO Magnesium Hydroxide (Milk Of Magnesia 30 Ml Oral.Susp) 30 ml PO DAILY PRN PRN Reason: Constipation Melatonin (Melatonin 3 Mg Tablet) 6 mg PO BEDTIME PRN PRN Reason: Insomnia Metoprolol Tartrate (Metoprolol Tartrate 12.5 Mg Halftab) 12.5 mg PO BID [facility]; Protocol Last Admin: 12/30/24 08:39 Dose: 12.5 mg Documented By: KIMO Sodium Chloride (0.9 % Sodium Chloride Flush 3 Ml Syringe) 3 ml IVFLUSH QSHIFT [facility] Last Admin: 12/30/24 08:40 Dose: 3 ml Documented By: KIMO Labs 12/30/24 06:48 12/30/24 06:48 Labs: Laboratory Results - last 24 hr 12/29/24 12/29/24 12/29/24 20:35 21:24 23:38 MCV 95.2 MCH 33.5 H MCHC 35.2 RDW 12.3 Plt Count 213 MPV 10.6 Immature Gran % (Auto) 0.1 Neut % (Auto) 59.4 Lymph % (Auto) 27.4 [place] % (Auto) 9.4 Eos % (Auto) 3.1 Baso % (Auto) 0.6 Lymph # (Auto) 2.2 [place] # (Auto) 0.7 Eos # (Auto) 0.2 Baso # (Auto) 0.1 Abs Immat Gran (auto) 0.01 Absolute Neuts (auto) 4.7 Absolute Nucleated RBC 0.000 Nucleated RBC % (auto) 0.0 PT 11.7 INR 1.0 Anion Gap 13 Estim Creat Clear Calc 86.1 Estimated GFR > 60 Random Glucose 84 Lactic Acid Calcium 9.2 Magnesium 2.1 Total Bilirubin 0.8 Direct Bilirubin 0.3 AST 55 H ALT 34 Alkaline Phosphatase 47 Total Creatine Kinase Troponin I High Sens 2.7 3.6 NT-Pro-B Natriuret Pep 180.1 Total Protein 7.4 Albumin 4.5 TSH Urine Color Yellow Urine Appearance Clear Urine pH 5.5 Ur Specific [place] >= 1.030 H Urine Protein Trace Urine Glucose (UA) Negative Urine Ketones Negative Urine Blood Negative Urine Nitrite Negative Ur Leukocyte Esterase Negative Urine Opiates Screen Ur Buprenorphine Scrn Ur Oxycodone Screen Urine Methadone Screen Urine Fentanyl Screen Ur Barbiturates Screen Ur Phencyclidine Scrn Ur Amphetamines Screen U Benzodiazepines Scrn Urine Cocaine Screen U Marijuana (THC) Screen Influenza Type A (PCR) Influenza Type B (PCR) RSV RNA Qual (PCR) SARS-CoV-2 RNA (RT-PCR) 12/29/24 12/30/24 12/30/24 23:49 06:48 08:59 MCV 96.7 MCH 33.4 H MCHC 34.5 RDW 12.4 Plt Count 196 MPV 10.6 Immature Gran % (Auto) Neut % (Auto) Lymph % (Auto) [place] % (Auto) Eos % (Auto) Baso % (Auto) Lymph # (Auto) [place] # (Auto) Eos # (Auto) Baso # (Auto) Abs Immat Gran (auto) Absolute Neuts (auto) Absolute Nucleated RBC 0.000 Nucleated RBC % (auto) 0.0 PT INR Anion Gap 12 Estim Creat Clear Calc 79.5 Estimated GFR > 60 Random Glucose 96 Lactic Acid 1.1 Calcium 8.3 L D Magnesium 2.1 Total Bilirubin Direct Bilirubin AST ALT Alkaline Phosphatase Total Creatine Kinase 755 H Troponin I High Sens 2.9 NT-Pro-B Natriuret Pep Total Protein Albumin TSH 2.89 Urine Color Urine Appearance Urine pH Ur Specific [place] Urine Protein Urine Glucose (UA) Urine Ketones Urine Blood Urine Nitrite Ur Leukocyte Esterase Urine Opiates Screen Ur Buprenorphine Scrn Ur Oxycodone Screen Urine Methadone Screen Urine Fentanyl Screen Ur Barbiturates Screen Ur Phencyclidine Scrn Ur Amphetamines Screen U Benzodiazepines Scrn Urine Cocaine Screen U Marijuana (THC) Screen Influenza Type A (PCR) NEGATIVE Influenza Type B (PCR) NEGATIVE RSV RNA Qual (PCR) NEGATIVE SARS-CoV-2 RNA (RT-PCR) NEGATIVE 12/30/24 12:02 MCV MCH MCHC RDW Plt Count MPV Immature Gran % (Auto) Neut % (Auto) Lymph % (Auto) [place] % (Auto) Eos % (Auto) Baso % (Auto) Lymph # (Auto) [place] # (Auto) Eos # (Auto) Baso # (Auto) Abs Immat Gran (auto) Absolute Neuts (auto) Absolute Nucleated RBC Nucleated RBC % (auto) PT INR Anion Gap Estim Creat Clear Calc Estimated GFR Random Glucose Lactic Acid Calcium Magnesium Total Bilirubin Direct Bilirubin AST ALT Alkaline Phosphatase Total Creatine Kinase Troponin I High Sens NT-Pro-B Natriuret Pep Total Protein Albumin TSH Urine Color Urine Appearance Urine pH Ur Specific [place] Urine Protein Urine Glucose (UA) Urine Ketones Urine Blood Urine Nitrite Ur Leukocyte Esterase Urine Opiates Screen Not Detected Ur Buprenorphine Scrn Not Detected Ur Oxycodone Screen Not Detected Urine Methadone Screen Not Detected Urine Fentanyl Screen Not Detected Ur Barbiturates Screen Not Detected Ur Phencyclidine Scrn Not Detected Ur Amphetamines Screen Not Detected U Benzodiazepines Scrn Not Detected Urine Cocaine Screen Not Detected U Marijuana (THC) Screen POSITIVE H Influenza Type A (PCR) Influenza Type B (PCR) RSV RNA Qual (PCR) SARS-CoV-2 RNA (RT-PCR) Assessment and Plan (1) HTN (hypertension): Status: Acute (2) Toxic metabolic encephalopathy: Status: Acute Plan Assessment: 69-year-old male with past medical history significant for SVT status post ablation on 06/2024, ICH prostate cancer and hypertension who presented to the ED after syncopal episode. In the ED patient presented with chest pain requiring sublingual nitroglycerin with improvement of symptoms. CTA with no findings for PE or pulmonary findings, CT head with no findings. Suspected toxic metabolic encephalopathy Syncope, to rule out neurology SVT s/p ablation Hypertension -labs reviewed, CK and UDS ordered -repeat CT scan ordered -continue telemetry -Continue lopressor -neurology consulted, for possible seizures -Cardiology consulted Hyperlipidemia, chronic Statin DVT prophylaxis with Lovenox Full code Given patient's comorbidities as well as syncope, patient will require at least 2 midnight stay for syncopal workup, suspicion for possible seizure disorder. Total time managing care of this patient today: 55 minutes. Quality Stroke Does the patient have a stroke diagnosis?: No VTE Prior VTE?: No VTE Risk Level:: Medical - moderate - high VTE Device Contraindication: Treatment Not Indicated VTE Drug Contraindication: N/A - Med Ordered
[2024-12-30 16:00] VITALS: BP 130/71; PULSE 76; RESP 20; TEMP 36.2; O2SAT 96
--- NOTE | 2024-12-30 16:02 | MHC.CM.PN ---
CM met with pt. he was somewhat confused, CM contacted his primary contact, left VM message, awaiting response.
[2024-12-30 19:48] VITALS: BP 117/56; PULSE 82; RESP 20; TEMP 36.6; O2SAT 97
--- NOTE | 2024-12-30 19:55 | PM.EVENT ---
Event Note Date of Service: 12/30/24 Event Note: mri with small subdurals, holding lovenox, start mechanical dvt prophylaxis Time Spent With Patient Time: Total time managing care of this patient today ____ minutes.
[2024-12-30 23:47] VITALS: BP 112/67; PULSE 84; RESP 18; TEMP 36.6; O2SAT 97
[2024-12-31] VITALS (8 sets, daily range): BP systolic 106–120; BP diastolic 63–74; PULSE 72–100; RESP 16–18; TEMP 36.1–37.2; O2SAT 95–97
[2024-12-31] MEDS: Metoprolol Tartrate 12.5 MG HALFTAB PO (07:42)
[2024-12-31] MEDS: 0.9 % Sodium Chloride Flush 3 ML SYRINGE IVFLUSH ×2 (07:47→20:15)
--- NOTE | 2024-12-31 12:39 | MHC.CM.PN ---
Addendum entered by Nandini Javier 12/31/24 13:30: CHULA from [facility] signed by pt. and faxed to them. CM will follow up and call to request assistance with resources for DCP for pt. Original Note: IMM 12/31/24, Pt. was evicted from his apt., and does not currently have a home. prior to eviction, he was independent, his dtr. did errands for him. He is connected with [facility] on [facility]. in [place], he said someone there was helping him to find housing, and that he is on waiting lists. CM has reached out to [facility] to obtain info, am awaiting CHULA form to be sent for patient's signature. DCP: [facility]. CM to follow for DC needs.
--- NOTE | 2024-12-31 16:49 | HO.PM.IMPN ---
Subjective Subjective Date of Service: 01/01/25 Interval History: subdural hematomas Review of Systems mental status seems improving no new c/o ,ovenright events noted reviewed. Review of Systems: Yes all other systems are reviewed and are negative Physical Exam Exam: Exam: Appearance: Alert.? Oriented X3,but still has some forgetfulness cvs: rrr, [id number] , no murmur res: clear to auscultation ,no rhonchii or wheezing abd: no rebound or guarding ,nt, bs present. ext pulses present , no cyanosis . neuro: moves all ext Vital Signs: Vital Signs: Last Vital Signs Temp 97.4 F 12/31/24 15:36 Pulse 88 12/31/24 15:36 Resp 16 12/31/24 15:36 BP 120/74 12/31/24 15:36 Pulse Ox 97 12/31/24 15:36 O2 Del Method Room Air 12/31/24 15:36 BMI result Body Mass Index 29.4 Objective Data Active Medications Acetaminophen (Acetaminophen 325 Mg Tablet) 650 mg PO Q6H PRN PRN Reason: Pain, Mild 1-3,fever,headache Last Admin: 12/29/24 23:44 Dose: 650 mg Documented By: NICK Atorvastatin Calcium (Atorvastatin Calcium 40 Mg Tablet) 40 mg PO BEDTIME [facility] Last Admin: 12/30/24 21:29 Dose: 40 mg Documented By: ESTUARDO Calcium Carbonate (Calcium Carbonate 750 Mg Tab.Chew) 750 mg PO Q4H PRN PRN Reason: Heartburn Gabapentin (Gabapentin 300 Mg Capsule) 300 mg PO BID [facility] Last Admin: 12/31/24 07:42 Dose: 300 mg Documented By: JESSICA Magnesium Hydroxide (Milk Of Magnesia 30 Ml Oral.Susp) 30 ml PO DAILY PRN PRN Reason: Constipation Melatonin (Melatonin 3 Mg Tablet) 6 mg PO BEDTIME PRN PRN Reason: Insomnia Metoprolol Tartrate (Metoprolol Tartrate 12.5 Mg Halftab) 12.5 mg PO BID [facility]; Protocol Last Admin: 12/31/24 07:42 Dose: 12.5 mg Documented By: JESSICA Sodium Chloride (0.9 % Sodium Chloride Flush 3 Ml Syringe) [facility] Last Admin: 12/31/24 07:47 Dose: 3 ml Documented By: JESSICA Labs 12/30/24 06:48 12/31/24 17:40 Assessment and Plan (1) Subdural hematoma: Status: Acute Plan 69-year-old male with past medical history significant for SVT status post ablation on 06/2024, ICH prostate cancer and hypertension who presented to the ED after syncopal episode. In the ED patient presented with chest pain requiring sublingual nitroglycerin with improvement of symptoms. CTA with no findings for PE or pulmonary findings, CT head with no findings. ?Syncope, to rule out neurology ? fall-CK mild elevated UDS positive for marijuana. mri: Possible thin subdural hematomas in frontal regions, new from recent CT. plan: orthostasis negative neurochecks will check b12 and folate levels neurology eval:eeg pending Discussed with neurology MRI result-patient mental status somewhat improving, no new issues, MRI does not show any shift. avoid blood thinnner , lovenox stopped Hypertension labs reviewed, CK mild elevated and UDS positive for marijuana. Continue lopressor mild rhabdomylysis : ivf moniter cpk ,bmp. Hyperlipidemia, chronic Statin. generlaised weak: pt eval. DVT prophylaxis with scd. Full code Ongoing need of stay: Subdural hematoma-monitor with neuro checks, neurologic workup is pending, PT evaluation. Quality Stroke Does the patient have a stroke diagnosis?: No VTE Prior VTE?: No VTE Risk Level:: Medical - moderate - high VTE Device Contraindication: Treatment Not Indicated VTE Drug Contraindication: N/A - Med Ordered
[2024-12-31 18:06] LABS: Anion Gap 9 (12-20); Blood Urea Nitrogen 16 mg/dL (9-16); Calcium 8.6 mg/dL (8.4-10.2); Carbon Dioxide 22 mmol/L (22-29); Chloride 113 mmol/L (96-108); Creatinine Clr Calc Pharmacy 83.9; Estimated Glomerular Filt Rate > 60; Potassium 4.1 mmol/L (3.3-5.1); Sodium 140 mmol/L (135-145)
[2025-01-01 03:08] VITALS: BP 122/72; PULSE 81; RESP 18; TEMP 36.8; O2SAT 95
[2025-01-01 08:00] VITALS: BP 103/64; PULSE 77; RESP 18; TEMP 36.6; O2SAT 96
[2025-01-01] MEDS: Metoprolol Tartrate 12.5 MG HALFTAB PO ×2 (08:18→19:57)
[2025-01-01] MEDS: 0.9 % Sodium Chloride Flush 3 ML SYRINGE IVFLUSH ×2 (08:18→19:57)
[2025-01-01 11:02] LABS: Folate 6.2 ng/mL (> or = 4.0); Vitamin B12 188 pg/mL (200-900)
[2025-01-01 11:38] VITALS: BP 118/60; PULSE 76; RESP 18; TEMP 36.1; O2SAT 94
--- NOTE | 2025-01-01 14:56 | HO.PM.IMPN ---
Subjective Subjective Date of Service: 01/01/25 Interval History: possible subdural hematomas Review of Systems mental status improving,still somewhat forgetful no new symptoms Review of Systems: Yes all other systems are reviewed and are negative Physical Exam Exam: Exam: Appearance: Alert.? Oriented X3. cvs: rrr, [id number] . res: clear to auscultation ,no rhonchii or wheezing abd: no rebound or guarding ,nt, bs present. ext pulses present , no cyanosis . neuro: axo3 , nonfocal. Vital Signs: Vital Signs: Last Vital Signs Temp 97.0 F 01/01/25 11:38 Pulse 76 01/01/25 11:38 Resp 18 01/01/25 11:38 BP 118/60 01/01/25 11:38 Pulse Ox 94 01/01/25 11:38 O2 Del Method Room Air 01/01/25 11:38 BMI result Body Mass Index 29.4 Objective Data Active Medications Acetaminophen (Acetaminophen 325 Mg Tablet) 650 mg PO Q6H PRN PRN Reason: Pain, Mild 1-3,fever,headache Last Admin: 12/29/24 23:44 Dose: 650 mg Documented By: NICK Atorvastatin Calcium (Atorvastatin Calcium 40 Mg Tablet) 40 mg PO BEDTIME [facility] On Hold: 12/31/24 17:04 Last Admin: 12/30/24 21:29 Dose: 40 mg Documented By: ESTUARDO Calcium Carbonate (Calcium Carbonate 750 Mg Tab.Chew) 750 mg PO Q4H PRN PRN Reason: Heartburn Cyanocobalamin (Cyanocobalamin (Vitamin B-12) 1,000 Mcg/Ml Vial) 1,000 mcg IM DAILY [facility] Last Admin: 01/01/25 12:08 Dose: 1,000 mcg Documented By: MARCIA Gabapentin (Gabapentin 300 Mg Capsule) 300 mg PO BID [facility] Last Admin: 01/01/25 08:18 Dose: 300 mg Documented By: MARCIA Magnesium Hydroxide (Milk Of Magnesia 30 Ml Oral.Susp) 30 ml PO DAILY PRN PRN Reason: Constipation Melatonin (Melatonin 3 Mg Tablet) 6 mg PO BEDTIME PRN PRN Reason: Insomnia Metoprolol Tartrate (Metoprolol Tartrate 12.5 Mg Halftab) 12.5 mg PO BID [facility]; Protocol Last Admin: 01/01/25 08:18 Dose: 12.5 mg Documented By: MARCIA Sodium Chloride (0.9 % Sodium Chloride Flush 3 Ml Syringe) 3 ml IVFLUSH QSHIFT [facility] Last Admin: 01/01/25 08:18 Dose: 3 ml Documented By: MARCIA Labs 12/30/24 06:48 12/31/24 17:40 Labs: Laboratory Results - last 24 hr 12/31/24 01/01/25 17:40 10:01 Anion Gap 9 L Estim Creat Clear Calc 83.9 Estimated GFR > 60 Random Glucose 116 H Calcium 8.6 Total Creatine Kinase 446 H Vitamin B12 188 L Folate 6.2 Assessment and Plan (1) Subdural hematoma: Status: Acute Plan 69-year-old male with past medical history significant for SVT status post ablation on 06/2024, ICH prostate cancer and hypertension who presented to the ED after syncopal episode. In the ED patient presented with chest pain requiring sublingual nitroglycerin with improvement of symptoms. CTA with no findings for PE or pulmonary findings, CT head with no findings. ?Syncope vs toxic metabolic encephalopathy ? fall-CK mild elevated UDS positive for marijuana. mri: Possible thin subdural hematomas in frontal regions, new from recent CT. plan: orthostasis negative Mental status improving neurochecks B12 deficiency added IM B12 neurology eval:eeg pending Discussed with neurology MRI result-patient mental status somewhat improving, no new issues, MRI does not show any shift. avoid blood thinnner , lovenox stopped Hypertension labs reviewed, CK mild elevated and UDS positive for marijuana. Continue lopressor mild rhabdomylysis : ivf moniter cpk ,bmp. Hyperlipidemia, chronic Statin. generlaised weak: pt eval. DVT prophylaxis with scd. Full code Ongoing need of stay: Subdural hematoma-monitor with neuro checks, neurologic workup is pending, PT evaluation. Quality Stroke Does the patient have a stroke diagnosis?: No VTE Prior VTE?: No VTE Risk Level:: Medical - moderate - high VTE Device Contraindication: Treatment Not Indicated VTE Drug Contraindication: N/A - Med Ordered
[2025-01-01 16:00] VITALS: BP 104/66; PULSE 81; RESP 18; TEMP 36.2; O2SAT 94
[2025-01-01 19:28] VITALS: BP 150/79; PULSE 79; RESP 19; TEMP 36.7; O2SAT 97
[2025-01-01 23:23] VITALS: BP 134/78; PULSE 83; RESP 19; TEMP 36.7; O2SAT 97
[2025-01-02] VITALS (7 sets, daily range): BP systolic 112–145; BP diastolic 60–84; PULSE 64–80; RESP 16–18; TEMP 36.1–36.8; O2SAT 94–98
--- NOTE | 2025-01-02 08:24 | P.PNIM_ITS ---
Subjective Subjective Date of Service: 01/03/25 Interval History: feels cesario weak and forgetful still Review of Systems Review of Systems: Yes all other systems are reviewed and are negative Physical Exam 2 Exam: Exam: Appearance: Alert.? Oriented,seems forgetful/weak cvs: rrr, [id number] . res: clear to auscultation ,no rhonchii or wheezing abd: no rebound or guarding ,nt, bs present. ext pulses present , no cyanosis . neuro: axo3 , nonfocal. Vital Signs: Vital Signs: Last Vital Signs Temp 97.9 F 01/02/25 03:26 Pulse 69 01/02/25 03:26 Resp 18 01/02/25 03:26 BP 143/84 H 01/02/25 03:26 Pulse Ox 98 01/02/25 03:26 O2 Del Method Room Air 01/02/25 03:26 BMI result Body Mass Index 29.4 Objective Data Active Medications Acetaminophen (Acetaminophen 325 Mg Tablet) 650 mg PO Q6H PRN PRN Reason: Pain, Mild 1-3,fever,headache Last Admin: 01/02/25 03:20 Dose: 650 mg Documented By: WALDO Atorvastatin Calcium (Atorvastatin Calcium 40 Mg Tablet) 40 mg PO BEDTIME [facility] On Hold: 12/31/24 17:04 Last Admin: 12/30/24 21:29 Dose: 40 mg Documented By: ESTUARDO Calcium Carbonate (Calcium Carbonate 750 Mg Tab.Chew) 750 mg PO Q4H PRN PRN Reason: Heartburn Last Admin: 01/02/25 03:05 Dose: 750 mg Documented By: ELVIS Cyanocobalamin (Cyanocobalamin (Vitamin B-12) 1,000 Mcg/Ml Vial) 1,000 mcg IM DAILY [facility] Last Admin: 01/01/25 12:08 Dose: 1,000 mcg Documented By: MARCIA Gabapentin (Gabapentin 300 Mg Capsule) 300 mg PO BID [facility] Last Admin: 01/01/25 19:57 Dose: 300 mg Documented By: WALDO Magnesium Hydroxide (Milk Of Magnesia 30 Ml Oral.Susp) 30 ml PO DAILY PRN PRN Reason: Constipation Melatonin (Melatonin 3 Mg Tablet) 6 mg PO BEDTIME PRN PRN Reason: Insomnia Metoprolol Tartrate (Metoprolol Tartrate 12.5 Mg Halftab) 12.5 mg PO BID [facility]; Protocol Last Admin: 01/01/25 19:57 Dose: 12.5 mg Documented By: WALDO Sodium Chloride (0.9 % Sodium Chloride Flush 3 Ml Syringe) 3 ml IVFLUSH QSHIFT [facility] Last Admin: 01/01/25 19:57 Dose: 3 ml Documented By: WALDO Labs 12/30/24 06:48 12/31/24 17:40 Labs: Laboratory Results - last 24 hr 01/01/25 10:01 Vitamin B12 188 L Folate 6.2 Assessment and Plan (1) Subdural hematoma: Status: Acute Plan 69-year-old male with past medical history significant for SVT status post ablation on 06/2024, ICH prostate cancer and hypertension who presented to the ED after syncopal episode. In the ED patient presented with chest pain requiring sublingual nitroglycerin with improvement of symptoms. CTA with no findings for PE or pulmonary findings, CT head with no findings. ?Syncope vs toxic metabolic encephalopathy ? fall-CK mild elevated UDS positive for marijuana. mri: Possible thin subdural hematomas in frontal regions, new from recent CT. plan: orthostasis negative Mental status improving neurochecks B12 deficiency added IM B12 neurology eval:eeg -d/w neuro negative ,report pending Discussed with neurology MRI result-patient mental status somewhat improving, no new issues, MRI does not show any shift. avoid blood thinnner , lovenox stopped Hypertension labs reviewed, CK mild elevated and UDS positive for marijuana. Continue lopressor mild rhabdomylysis : s/p ivf improving Hyperlipidemia, chronic Statin. generlaised weak: pt eval:str DVT prophylaxis with scd. Full code Ongoing need of stay: Subdural hematoma-monitor with neuro checks, neurologic workup is pending, PT evaluation-str. Quality Stroke Does the patient have a stroke diagnosis?: No VTE Prior VTE?: No VTE Risk Level:: Medical - moderate - high VTE Device Contraindication: Treatment Not Indicated VTE Drug Contraindication: N/A - Med Ordered
[2025-01-02] MEDS: Metoprolol Tartrate 12.5 MG HALFTAB PO ×2 (08:42→20:38)
[2025-01-02] MEDS: 0.9 % Sodium Chloride Flush 3 ML SYRINGE IVFLUSH ×3 (08:43→20:44)
--- NOTE | 2025-01-02 14:02 | MHC.CM.PN ---
PT RECOMMENDING STR REFERRALS MADE
--- NOTE | 2025-01-02 16:01 | MHC.CM.PN ---
STR BED [facility]ER RECE[facility] FROM [facility], THIS CM MET WITH PATIENT TO DISCUSS DISCHARGE PLAN, HE IS IN AGREEMENT WITH GOING TO STR AT [facility]. WILL NEED [employer] APPROVAL, WHICH WON'T HAPPEN UNTIL FRIDAY 01/05.
[2025-01-03 03:51] VITALS: BP 111/62; PULSE 74; RESP 18; TEMP 37.1; O2SAT 96
[2025-01-03 07:43] VITALS: BP 142/78; PULSE 73; RESP 16; TEMP 36.4; O2SAT 98
[2025-01-03] MEDS: 0.9 % Sodium Chloride Flush 3 ML SYRINGE IVFLUSH ×2 (09:18→20:19)
[2025-01-03] MEDS: Metoprolol Tartrate 12.5 MG HALFTAB PO ×2 (09:19→20:19)
--- NOTE | 2025-01-03 10:26 | HO.PM.IMPN ---
Subjective Subjective Date of Service: 01/03/25 Interval History: no new c/o no overnight events Physical Exam Exam: Exam: Appearance: Alert.? Oriented,seems forgetful/weak cvs: rrr, [id number] . res: clear to auscultation ,no rhonchii or wheezing abd: no rebound or guarding ,nt, bs present. ext pulses present , no cyanosis . neuro: axo3 , nonfocal. Vital Signs: Vital Signs: Last Vital Signs Temp 97.6 F 01/03/25 07:43 Pulse 73 01/03/25 07:43 Resp 16 01/03/25 07:43 BP 142/78 H 01/03/25 07:43 Pulse Ox 98 01/03/25 07:43 O2 Del Method Room Air 01/03/25 07:43 BMI result Body Mass Index 29.4 Objective Data Active Medications Acetaminophen (Acetaminophen 325 Mg Tablet) 650 mg PO Q6H PRN PRN Reason: Pain, Mild 1-3,fever,headache Last Admin: 01/02/25 03:20 Dose: 650 mg Documented By: WALDO Atorvastatin Calcium (Atorvastatin Calcium 40 Mg Tablet) 40 mg PO BEDTIME [facility] On Hold: 12/31/24 17:04 Last Admin: 12/30/24 21:29 Dose: 40 mg Documented By: ESTUARDO Calcium Carbonate (Calcium Carbonate 750 Mg Tab.Chew) 750 mg PO Q4H PRN PRN Reason: Heartburn Last Admin: 01/02/25 03:05 Dose: 750 mg Documented By: ANTMICK Cyanocobalamin (Cyanocobalamin (Vitamin B-12) 1,000 Mcg/Ml Vial) 1,000 mcg IM DAILY [facility] Last Admin: 01/03/25 09:19 Dose: 1,000 mcg Documented By: YOSEPH Gabapentin (Gabapentin 300 Mg Capsule) 300 mg PO BID [facility] Last Admin: 01/03/25 09:18 Dose: 300 mg Documented By: YOSEPH Magnesium Hydroxide (Milk Of Magnesia 30 Ml Oral.Susp) 30 ml PO DAILY PRN PRN Reason: Constipation Melatonin (Melatonin 3 Mg Tablet) 6 mg PO BEDTIME PRN PRN Reason: Insomnia Metoprolol Tartrate (Metoprolol Tartrate 12.5 Mg Halftab) 12.5 mg PO BID [facility]; Protocol Last Admin: 01/03/25 09:19 Dose: 12.5 mg Documented By: YOSEPH Multivitamins/Vitamin C (Multivitamin Tablet) 1 tab PO DAILY [facility] Last Admin: 01/03/25 09:19 Dose: 1 tab Documented By: YOSEPH Sodium Chloride (0.9 % Sodium Chloride Flush 3 Ml Syringe) 3 ml IVFLUSH QSHIFT [facility] Last Admin: 01/03/25 09:18 Dose: 3 ml Documented By: YOSEPH Labs 12/30/24 06:48 12/31/24 17:40 Assessment and Plan (1) Subdural hematoma: Status: Acute Plan 69-year-old male with past medical history significant for SVT status post ablation on 06/2024, ICH prostate cancer and hypertension who presented to the ED after syncopal episode. In the ED patient presented with chest pain requiring sublingual nitroglycerin with improvement of symptoms. CTA with no findings for PE or pulmonary findings, CT head with no findings. ?Syncope vs toxic metabolic encephalopathy ? fall-CK mild elevated UDS positive for marijuana. mri: Possible thin subdural hematomas in frontal regions, new from recent CT. plan: orthostasis negative Mental status improving neurochecks B12 deficiency added IM B12 neurology eval:eeg -d/w neuro negative ,report pending Discussed with neurology MRI result-patient mental status somewhat improving, no new issues, MRI does not show any shift. avoid blood thinnner , lovenox stopped Hypertension labs reviewed, CK mild elevated and UDS positive for marijuana. Continue lopressor mild rhabdomylysis : s/p ivf improving Hyperlipidemia, chronic Statin. generlaised weak: pt eval:str DVT prophylaxis with scd. Full code Ongoing need of stay: PT evaluation-str. Quality Stroke Does the patient have a stroke diagnosis?: No VTE Prior VTE?: No VTE Risk Level:: Medical - moderate - high VTE Device Contraindication: Treatment Not Indicated VTE Drug Contraindication: N/A - Med Ordered
[2025-01-03 10:48] VITALS: BP 106/57; PULSE 70; RESP 16; TEMP 36.3; O2SAT 97
[2025-01-03 15:59] VITALS: BP 125/73; PULSE 78; RESP 18; TEMP 36.6; O2SAT 97
[2025-01-03 19:50] VITALS: BP 124/61; PULSE 82; RESP 18; TEMP 37.1; O2SAT 97
[2025-01-03 23:57] VITALS: BP 120/66; PULSE 78; RESP 18; TEMP 36.9; O2SAT 97
[2025-01-04] VITALS (9 sets, daily range): BP systolic 101–139; BP diastolic 59–89; PULSE 69–140; RESP 16–20; TEMP 36–37; O2SAT 94–97
--- NOTE | 2025-01-04 | ECG_ITS ---
Test Reason : dizziness/tachycardia Blood Pressure : */* mmHG Vent. Rate : 75 BPM Atrial Rate : 75 BPM P-R Int : 180 ms QRS Dur : 90 ms QT Int : 400 ms P-R-T Axes : 31 -7 17 degrees QTcB Int : 446 ms Normal sinus rhythm Low voltage QRS Borderline ECG When compared with ECG of 29-Dec-2024 20:22, No significant change was found Referred By: Caleb Melendez Electronically Signed By: COSTA REYES
--- NOTE | 2025-01-04 02:08 | PC.NURSE ---
Patient Pleasant and cooperative. He reports feeling foggy headed , otherwise neuro checks unremarkable.
--- NOTE | 2025-01-04 08:03 | P.PNIM_ITS ---
Subjective Subjective Date of Service: 01/04/25 Interval History: dizzines with standing generalised weak Review of Systems Review of Systems: Yes all other systems are reviewed and are negative Physical Exam 2 Exam: Exam: Appearance: Alert.? Oriented,seems forgetful/weak cvs: rrr, [id number] . res: clear to auscultation ,no rhonchii or wheezing abd: no rebound or guarding ,nt, bs present. ext pulses present , no cyanosis . neuro: axo3 , nonfocal. Vital Signs: Vital Signs: Last Vital Signs Temp 97.1 F 01/04/25 07:27 Pulse 72 01/04/25 07:27 Resp 16 01/04/25 07:27 BP 121/71 01/04/25 07:27 Pulse Ox 96 01/04/25 07:27 O2 Del Method Room Air 01/04/25 07:27 BMI result Body Mass Index 29.4 Objective Data Active Medications Acetaminophen (Acetaminophen 325 Mg Tablet) 650 mg PO Q6H PRN PRN Reason: Pain, Mild 1-3,fever,headache Last Admin: 01/03/25 17:15 Dose: 650 mg Documented By: YOSEPH Atorvastatin Calcium (Atorvastatin Calcium 40 Mg Tablet) 40 mg PO BEDTIME [facility] On Hold: 12/31/24 17:04 Last Admin: 12/30/24 21:29 Dose: 40 mg Documented By: ESTUARDO Calcium Carbonate (Calcium Carbonate 750 Mg Tab.Chew) 750 mg PO Q4H PRN PRN Reason: Heartburn Last Admin: 01/02/25 03:05 Dose: 750 mg Documented By: ANTOIC Cyanocobalamin (Cyanocobalamin (Vitamin B-12) 1,000 Mcg/Ml Vial) 1,000 mcg IM DAILY [facility] Last Admin: 01/03/25 09:19 Dose: 1,000 mcg Documented By: YOSEPH Gabapentin (Gabapentin 300 Mg Capsule) 300 mg PO BID [facility] Last Admin: 01/03/25 20:19 Dose: 300 mg Documented By: YAYA Magnesium Hydroxide (Milk Of Magnesia 30 Ml Oral.Susp) 30 ml PO DAILY PRN PRN Reason: Constipation Melatonin (Melatonin 3 Mg Tablet) 6 mg PO BEDTIME PRN PRN Reason: Insomnia Metoprolol Tartrate (Metoprolol Tartrate 12.5 Mg Halftab) 12.5 mg PO BID [facility]; Protocol Last Admin: 01/03/25 20:19 Dose: 12.5 mg Documented By: YAYA Multivitamins/Vitamin C (Multivitamin Tablet) 1 tab PO DAILY [facility] Last Admin: 01/03/25 09:19 Dose: 1 tab Documented By: YOSEPH Sodium Chloride (0.9 % Sodium Chloride Flush 3 Ml Syringe) 3 ml IVFLUSH QSHIFT [facility] Last Admin: 01/03/25 20:19 Dose: 3 ml Documented By: YAYA Labs 12/30/24 06:48 12/31/24 17:40 Assessment and Plan (1) Subdural hematoma: Status: Acute Plan 69-year-old male with past medical history significant for SVT status post ablation on 06/2024, ICH prostate cancer and hypertension who presented to the ED after syncopal episode. In the ED patient presented with chest pain requiring sublingual nitroglycerin with improvement of symptoms. CTA with no findings for PE or pulmonary findings, CT head with no findings. dizziness-unclear etiology ,seems like orthostasis check orthostasis ivf moniter closely repeat ct head echo moniter on tele ?Syncope vs toxic metabolic encephalopathy ? fall-CK mild elevated UDS positive for marijuana. mri: Possible thin subdural hematomas in frontal regions, new from recent CT. plan: orthostasis negative Mental status improving neurochecks B12 deficiency added IM B12 neurology eval:eeg -d/w neuro negative ,report pending Discussed with neurology MRI result-patient mental status somewhat improving, no new issues, MRI does not show any shift. avoid blood thinnner , lovenox stopped Hypertension labs reviewed, CK mild elevated and UDS positive for marijuana. Continue lopressor mild rhabdomylysis : s/p ivf improving Hyperlipidemia, chronic Statin. generlaised weak: pt eval:str DVT prophylaxis with scd. Full code Ongoing need of stay: dizziness -ivf ,close monitering , continue to moniter orthostatsis ,repeat ct head . Quality Stroke Does the patient have a stroke diagnosis?: No VTE Prior VTE?: No VTE Risk Level:: Medical - moderate - high VTE Device Contraindication: Treatment Not Indicated VTE Drug Contraindication: N/A - Med Ordered
[2025-01-04] MEDS: Metoprolol Tartrate 12.5 MG HALFTAB PO ×2 (09:23→20:36)
[2025-01-04] MEDS: 0.9 % Sodium Chloride Flush 3 ML SYRINGE IVFLUSH ×2 (09:23→20:37)
[2025-01-05] VITALS (14 sets, daily range): BP systolic 101–151; BP diastolic 59–91; PULSE 71–99; RESP 16–20; TEMP 36.1–36.7; O2SAT 95–98
--- NOTE | 2025-01-05 07:00 | CA_ITS ---
Transthoracic Echocardiogram Patient (Last, First, Middle): Wolfgang Canales, Gender: M Date of : 1955 Age: 69 Procedure Date: 01/05/2025 Procedure Type: Transthoracic Echocardiogram Location: [facility] – [place] Height: 175.26 cm Weight: 90.27 kg BSA: 2.06 m2 Heart Rate: bpm BP: 101 / 59 mmHg Mgmt Analyst: Referring MD: Caleb Melendez MD Symptoms: dizziness /?syncope Study Quality: Good ECG Rhythm: Sinus Conclusions: - The left ventricular systolic function is normal. The calculated ejection fraction is 65% by biplane method. - No obvious valvular pathology seen on this study. Findings Left Ventricle Normal left ventricular cavity size. There is mildly increased left ventricular wall thickness. The left ventricular systolic function is normal. The calculated ejection fraction is 65% by biplane method. There is no evidence of regional wall motion abnormalities. Diastolic function is normal for age. Right Ventricle Normal right ventricular cavity size and systolic function. Atria Both atria are normal in size. Aortic Valve There is a normal trileaflet aortic valve. There is no aortic valve stenosis. There is no aortic valve regurgitation. Mitral Valve The mitral valve appears normal. There is trace mitral valve regurgitation. There is no mitral valve stenosis. Pulmonic Valve The pulmonic valve is likely normal. Tricuspid Valve Normal tricuspid valve structure. There is mild tricuspid valve regurgitation. There is no evidence of pulmonary hypertension. Great Vessels The asc aorta is normal in size. Venous The inferior vena cava is normal in size and collapses greater than 50% with inspiration. Pericardium/Pleural There is no evidence of pericardial effusion. Prior Study Comparison No significant change compared to prior study dated: 11/06/2022. Recommendations, Care & Conclusions No obvious valvular pathology seen on this study. Measurements 2D Linear Measurements IVSd: 1.13 0.6-0.9/0.6-1.0 cm LVIDd: 4.21 3.9-5.3/4.2-5.9 cm LVIDd Index: 2.04 2.4-3.2/2.2-3.1 cm/m2 LVIDs: 2.72 2.0-3.6 cm LVPWd: 1.06 0.7-1.1 cm Ao Root: 3.60 2.1-3.5 cm LA Diam: 3.60 2.7-3.8/3.0-4.0 cm LAIDs Index: 1.75 1.5-2.3 cm/m2 LV Mass: 195.03 67-162/88-224 g LV Mass Index: 94.67 43-95/49-115 g/m2 LVOT Diam: 2.10 3.0+(-)1.3 cm 2D Systolic Function EF 4C: 68.10 >55% EF 2C: 65.60 >55% EF BiP: 65.20 >55% Mitral Valve MV Pk E: 0.50 MV PK A: 0.82 MV Decel Time: 168.00 E/A: 0.60 E'Lateral: 5.22 E'Medial: 5.87 E/E' Med: 8.50 E/E' Lat: 9.60 PHT: 49.00 MVA PHT: 4.49 Decel Stanton: 2.99 Aortic Valve AoV Pk Irwin: 1.41 AoV Mn Irwin: 0.95 AoV VTI: 0.31 AoV Pk Grad: 8.00 Aov Mn Grad: 4.00 ELLA Cont.VTI: 2.95 LVOT LVOT Pk Irwin: 1.21 LVOT Mn Irwin: 0.80 LVOT VTI: 0.27 LVOT Pk Grad: 6.00 LVOT Mn Grad: 3.00 LVOT Diam: 2.10 LVOT Area: 3.46 Diastolic Function MV Pk E: 0.50 MV Pk A: 0.82 E/A: 0.60 E'Medial: 5.87 E/E' Med: 8.50 E' Laterial: 5.22 E/E' Lat: 9.60 Right Ventricle TAPSE (mm): 28.00 TVS' Irwin: 13.00 Tricuspid Valve TR Pk Irwin: 2.64 TR Pk Grad: 28.00 RA Press: 3.00 RVSP: 31.00 Great Vessels Aorta Ao Root-2D: 3.60 2.0-3.7 cm Ao Asc: 3.40 2.1-3.4 cm Pulmonary Valve PV Pk Irwin: 1.10 Peak PV Grad: 5.00 Updated in Other Vendor System with Status of Final Maurilio Caballero MD electronically signed on 01/05/2025 10:17:41 AM with status of Final
[2025-01-05] MEDS: Metoprolol Tartrate 12.5 MG HALFTAB PO ×2 (10:25→20:19)
--- NOTE | 2025-01-05 11:56 | PM.NEUROCN ---
History of Present Illness Data of Consult Service Date: 01/05/25 Primary Care Provider: Shu Vizcaino MD HPI Reason for consult: Encephalopathy 69 years old man who I was asked to see for follow-up of neurology consultation because of ongoing confusion. Apparently he fell in a restaurant and was brought to hospital and was found to have mild subdural hemorrhage. Head CT did not reveal any significant abnormality while brain MRI suggested mild subdural. He said that he did not have recollection of most of this event. He remembered feeling dizzy and then seeing flashes of light or bright light and then something happened. Now he was noted to be either confused or responding slowly and this consultation was requested. No witnessed convulsion or shaking was noted. Review of Systems Review of Systems: General: No recent loss of weight Psychiatric: He denied any excessive stress or depression Neurological: He was feeling confused Genitourinary: No loss of bowel bladder control PMFSH Past Medical History Medical History Anxiety and depression Brain bleed Prostate cancer Myocardial infarct HTN (hypertension) Family History Family History Mother No problems noted. Father No problems noted. Surgical History Surgical History S/P lumpectomy, right breast Social History Social History Household Members: None Housing: Apartment Do you presently have visiting nurse or other home services: No Alcohol intake: never Comment: Seizure precaution in place and neuro consult for mental status change Patient Tobacco Use Status: Current everyday Tobacco user Tobacco use type: Cigarette Cigarette Packs Per Day: 1 Cigarettes Per Day: 20.0 Years Smoked: 55 Smoked in Last 30 Days: Yes e-Cigarette/Vaping Use: Never Used Patient Interested in Nicotine Replacement: No Patient Given Instructions on How to Stop Smoking: Yes Date Education Initiated: 12/30/24 Second Hand Smoke Exposure: No Use of substances other than those prescribed or required for medical reasons: No Currently Displaying Signs/Symptoms of Drug Intoxication Withdrawal: No Have you been hit, kicked, punched, or otherwise hurt by someone within the past year? If so, by whom?: No Do you feel safe in your current relationship?: No Current Relationship Is there a partner from a previous relationship who is making you feel unsafe now?: No Are you made to feel afraid or neglected: No Advance Directives: No Advance Directives Information Provided: No Do you have a plan to hurt others: No Plan Recently lost weight without trying: Unsure How much weight loss: Unsure Eating poorly because of decreased appetite: No Nutrition screen score: 4 Nutrition Risks: No Nutritional Risk Poor oral hygiene: No service: No Current occupational status: retired Cognitive needs: No Hearing needs: No Vision needs: Yes (glasses) Meds Allergies Allergy/AdvReac Type Severity Reaction Status Date / Time No Known Allergies (No Known Allergy Verified 12/29/24 20:17 Allergies*) Active Medications: Current Medications Acetaminophen (Acetaminophen 325 Mg Tablet) 650 mg PO Q6H PRN PRN Reason: Pain, Mild 1-3,fever,headache Last Admin: 01/05/25 00:42 Dose: 650 mg Atorvastatin Calcium (Atorvastatin Calcium 40 Mg Tablet) 40 mg PO BEDTIME [facility] On Hold: 12/31/24 17:04 Last Admin: 12/30/24 21:29 Dose: 40 mg Calcium Carbonate (Calcium Carbonate 750 Mg Tab.Chew) 750 mg PO Q4H PRN PRN Reason: Heartburn Last Admin: 01/02/25 03:05 Dose: 750 mg Cyanocobalamin (Cyanocobalamin (Vitamin B-12) 1,000 Mcg/Ml Vial) 1,000 mcg IM DAILY [facility] Last Admin: 01/05/25 10:25 Dose: 1,000 mcg Gabapentin (Gabapentin 300 Mg Capsule) 300 mg PO BID [facility] Last Admin: 01/05/25 10:25 Dose: 300 mg Sodium Chloride (Ns) 1,000 mls @ 100 mls/hr IVCONT .Q10H [facility] Last Admin: 01/05/25 10:27 Dose: 100 mls/hr Magnesium Hydroxide (Milk Of Magnesia 30 Ml Oral.Susp) 30 ml PO DAILY PRN PRN Reason: Constipation Melatonin (Melatonin 3 Mg Tablet) 6 mg PO BEDTIME PRN PRN Reason: Insomnia Metoprolol Tartrate (Metoprolol Tartrate 12.5 Mg Halftab) 12.5 mg PO BID [facility]; Protocol Last Admin: 01/05/25 10:25 Dose: 12.5 mg Multivitamins/Vitamin C (Multivitamin Tablet) 1 tab PO DAILY [facility] Last Admin: 01/05/25 10:25 Dose: 1 tab Sodium Chloride (0.9 % Sodium Chloride Flush 3 Ml Syringe) 3 ml IVFLUSH QSHIFT [facility] Last Admin: 01/05/25 10:29 Dose: Not Given Home Medications ?Medication ?Instructions ?Recorded ?Confirmed ?Last Taken ?Type metoprolol tartrate 25 mg tablet 25 mg PO DAILY 12/30/24 12/30/24 Unknown History Physical Exam Vital Signs: Vital Signs: Last Vital Signs Temp 97.7 F 01/05/25 08:00 Pulse 89 01/05/25 10:46 Resp 20 01/05/25 08:00 BP 151/75 H 01/05/25 10:46 Pulse Ox 97 01/05/25 08:00 O2 Del Method Room Air 01/05/25 08:00 BMI result Body Mass Index 29.4 Neuro: Other: Mental Status: He is alert and awake with slightly slowed speech or decreased spontaneity and fluency. He is able to name and repeat and comprehend. He knew where he was and where he lived but he took almost 30 seconds sometime to answer this type of simple questions. Cranial Nerves: CN II: Visual morse full to confrontation, visual acuity intact. CN III, IV, : Pupils equal, round, reactive to light and accommodation. Extraocular movements are normal. CN V: Facial sensation is normal. CN VII: Facial movements symmetrical. CN VIII: Hearing intact to bedside conversation is normal. CN IX, X: Palate elevates symmetrically. CN XI: Shoulder shrug and head turn symmetrical. CN XII: Tongue midline without atrophy or fasciculations. Motor: No focal arm or leg weakness. Intact to light touch, pinprick, and vibration. Romberg is negative. Extrapyramidal: Full facial expressions and blinking. No rigidity. Movements are appropriate with no tremor or abnormality. Speech: Normal; no dysarthria or tremor. Results Labs 12/30/24 06:48 12/31/24 17:40 Labs: Ordering Physician: Jarrett Huston MD Date of Service: 12/30/24 Procedure(s): MR head/brain wo con Accession Number(s): [id number] cc: Jarrett Huston MD; Shu Cervantes MD~ Reason for Exam: syncope, rule out stroke ADDENDUMThis document has been electronically signed by: Kirt Horn MD on 12/30/2024 19:49:03 ADDENDUM: This report was discussed with Dr. Eckert on Dec 30, 2024 19:55:00 EST. This document has been electronically signed by: Jesusita Lee on 12/30/2024 19:57:25 Addendum Dictated By: Kirt Horn MD Addendum Signed By: <Electronically signed by Kirt Horn MD in OV> 12/30/241957 Addendum Cosigned By: DD/ TD/TT: 12/30/24 CLINICAL HISTORY: syncope, rule out stroke motion, reminders given, ran blades as possible MR Brain without gadolinium Comparison: CT/SR - CT HEAD WITHOUT IV CONTRAST - 12/30/24 10:[address]/SR - CT HEAD/BRAIN WO IV CON - 12/29/24 21:39 EST Findings: Thin extra-axial signal abnormalities ( mildly hyperintense to CSF on FLAIR, and isointense to white matter on T1) along the subdural areas of the frontal regions, possibly thin subdural hematomas. No correlate on the earlier noncontrast CT. No restricted diffusion. Few periventricular and subcortical T2 white matter hyperintensities likely chronic small-vessel ischemic changes. No midline shift. No hydrocephalus. Vascular flow voids are intact. The orbits are normal. The sinuses and mastoid air cells are clear. No focal bone lesion. IMPRESSION: 1. Possible thin subdural hematomas in frontal regions, new from recent CT. 2. No acute infarct. EEG Description: Waking background activity consists of a well-defined 9 hertz posterior alpha frequency intermixed anteriorly with low-voltage fast frequencies and eye movement artifacts. Drowsiness is characterized by diffuse theta slowing. Sleep stages I entered briefly with the appearance of frontocentral sleep spindles. Rare instances of isolated sharp transients are seen from the left temporal region. Photic stimulation and hyperventilation are without activation. Impression: This awake and sleep EEG is considered within normal limits with the exception of rare sharp transients in the left temporal region suggestive of a minimal cerebral irritability in the left temporal region. These findings are not developed well enough to be diagnostic for a seizure disorder. Clinical correlation is suggested Assessment and Plan (1) Seizure disorder: Status: Acute His primary problem seems to be seizure disorder. He reported set of symptoms leading to fall that probably was a seizure. He suffered from mild head injury causing mild subdural hemorrhage but that would not explain his overall symptomatology and what had happened. EEG was also slightly abnormal. My recommendation is to put him on levetiracetam 500 mg twice a day at least for 3 months and then re-evaluate the situation. Procedures Date of Service Date of Service: 01/05/25
--- NOTE | 2025-01-05 15:06 | MHC.CM.PN ---
Addendum entered by Margoth Freitas 01/05/25 16:02: SECOND IMM GIVEN 01/05. THIS CM MET WITH PATIENT TO DISCUSS DISCHARGE PLANS, HE IS AWARE AND IN AGREEMENT THAT HE WILL DISCHARGE TO [facility] TOMORROW 01/06 VIA BLS. Original Note: EMR REVIEWED AND PER MD ROUNDS, PATIENT IS NOT MEDICALLY CLEARED FOR DISCHARGE, STILL SYMPTOMATIC WITH DIZZINESS, PER NEURO RECS, STARTING ON NEW MEDICATION KEPPRA, ANTICIPATING PATIENT WILL DISCHARGE TO [facility] FOR STR TOMORROW. THIS CM MET WITH PATIENT TO COMPLETE NEW HCP, NOW ON FILE.
--- NOTE | 2025-01-05 17:18 | HO.PM.IMPN ---
Subjective Subjective Date of Service: 01/05/25 Interval History: dizziness Review of Systems seems somewhat improving Review of Systems: Yes all other systems are reviewed and are negative Physical Exam Exam: Exam: Appearance: Alert.? Oriented,seems forgetful/weak cvs: rrr, [id number] . res: clear to auscultation ,no rhonchii or wheezing abd: no rebound or guarding ,nt, bs present. ext pulses present , no cyanosis . neuro: axo3 , nonfocal. Vital Signs: Vital Signs: Last Vital Signs Temp 97.6 F 01/05/25 15:31 Pulse 81 01/05/25 15:31 Resp 16 01/05/25 15:31 BP 110/67 01/05/25 15:31 Pulse Ox 95 01/05/25 15:31 O2 Del Method Room Air 01/05/25 15:31 BMI result Body Mass Index 29.4 Objective Data Active Medications Acetaminophen (Acetaminophen 325 Mg Tablet) 650 mg PO Q6H PRN PRN Reason: Pain, Mild 1-3,fever,headache Last Admin: 01/05/25 00:42 Dose: 650 mg Documented By: GISSEL Atorvastatin Calcium (Atorvastatin Calcium 40 Mg Tablet) 40 mg PO BEDTIME [facility] On Hold: 12/31/24 17:04 Last Admin: 12/30/24 21:29 Dose: 40 mg Documented By: ESTUARDO Calcium Carbonate (Calcium Carbonate 750 Mg Tab.Chew) 750 mg PO Q4H PRN PRN Reason: Heartburn Last Admin: 01/02/25 03:05 Dose: 750 mg Documented By: ANTOIC Cyanocobalamin (Cyanocobalamin (Vitamin B-12) 1,000 Mcg/Ml Vial) 1,000 mcg IM DAILY [facility] Last Admin: 01/05/25 10:25 Dose: 1,000 mcg Documented By: OSWALDO Gabapentin (Gabapentin 300 Mg Capsule) 300 mg PO BID [facility] Last Admin: 01/05/25 10:25 Dose: 300 mg Documented By: OSWALDO Sodium Chloride (Ns) 1,000 mls @ 100 mls/hr IVCONT .Q10H [facility] Last Admin: 01/05/25 10:27 Dose: 100 mls/hr Documented By: OSWALDO Levetiracetam (Levetiracetam 500 Mg Tablet) 500 mg PO BID [facility] Last Admin: 01/05/25 14:19 Dose: 500 mg Documented By: OSWALDO Magnesium Hydroxide (Milk Of Magnesia 30 Ml Oral.Susp) 30 ml PO DAILY PRN PRN Reason: Constipation Melatonin (Melatonin 3 Mg Tablet) 6 mg PO BEDTIME PRN PRN Reason: Insomnia Metoprolol Tartrate (Metoprolol Tartrate 12.5 Mg Halftab) 12.5 mg PO BID [facility]; Protocol Last Admin: 01/05/25 10:25 Dose: 12.5 mg Documented By: OSWALDO Multivitamins/Vitamin C (Multivitamin Tablet) 1 tab PO DAILY [facility] Last Admin: 01/05/25 10:25 Dose: 1 tab Documented By: OSWALDO Sodium Chloride (0.9 % Sodium Chloride Flush 3 Ml Syringe) 3 ml IVFLUSH QSHIFT [facility] Last Admin: 01/05/25 16:58 Dose: Not Given Documented By: OSWALDO Non-Admin Reason: IV Running Labs 12/30/24 06:48 12/31/24 17:40 Assessment and Plan (1) Subdural hematoma: Status: Acute Plan 69-year-old male with past medical history significant for SVT status post ablation on 06/2024, ICH prostate cancer and hypertension who presented to the ED after syncopal episode. In the ED patient presented with chest pain requiring sublingual nitroglycerin with improvement of symptoms. CTA with no findings for PE or pulmonary findings, CT head with no findings. dizziness-unclear etiology ,seems like orthostasis check orthostasis ivf moniter closely repeat ct head-negative echo: The left ventricular systolic function is normal. The calculated ejection fraction is 65% by biplane method. - No obvious valvular pathology seen on this study. neuro reeval done:: EEG was also slightly abnormal. recommendation start levetiracetam 500 mg twice a day at least for 3 months and then re-evaluate the situation. ?Syncope vs toxic metabolic encephalopathy ? fall-CK mild elevated UDS positive for marijuana. mri: Possible thin subdural hematomas in frontal regions, new from recent CT. plan: orthostasis negative Mental status improving neurochecks B12 deficiency added IM B12 neurology eval:eeg -d/w neuro negative ,report pending Discussed with neurology MRI result-patient mental status somewhat improving, no new issues, MRI does not show any shift. avoid blood thinnner , lovenox stopped Hypertension labs reviewed, CK mild elevated and UDS positive for marijuana. Continue lopressor mild rhabdomylysis : s/p ivf improving Hyperlipidemia, chronic Statin. generlaised weak: pt eval:str DVT prophylaxis with scd. Full code Ongoing need of stay: dizziness -ivf ,close monitering , continue to moniter orthostatsis ,repeat ct head . Quality Stroke Does the patient have a stroke diagnosis?: No VTE Prior VTE?: No VTE Risk Level:: Medical - moderate - high VTE Device Contraindication: Treatment Not Indicated VTE Drug Contraindication: N/A - Med Ordered
[2025-01-05] MEDS: 0.9 % Sodium Chloride Flush 3 ML SYRINGE IVFLUSH (20:20)
[2025-01-06 03:09] VITALS: BP 110/60; PULSE 80; RESP 18; TEMP 36.6; O2SAT 96
[2025-01-06] MEDS: Metoprolol Tartrate 12.5 MG HALFTAB PO (07:46)
[2025-01-06 08:00] VITALS: BP 117/70; PULSE 78; RESP 20; TEMP 36.4; O2SAT 96
[2025-01-06 08:25] VITALS: BP 116/69; PULSE 83
--- NOTE | 2025-01-06 10:52 | MHC.CM.PN ---
PATIENT TO TRANSFER TO REHAB FOR 13:30 [facility] PATIENT, RN AND UNIT AWARE. NURSE TO NURSE NUMBER PROVIDED IMM 01/05 PREVIOUSLY COMPLETED.
--- NOTE | 2025-01-06 11:22 | P.DS_ITS ---
DS: Providers Provider Date of Service: 01/06/25 Date of admission: 12/30/24 10:45 Date of discharge: 01/06/25 Primary care physician: Shu Vizcaino MD Consults: 12/29/24 23:28 Consult to Cardiology Routine Consulting Provider: [facility] Reason for consultation: sycnope Has provider been notified: Yes 12/30/24 08:52 Consult to Neurology Routine Consulting Provider: [facility] Reason for consultation: syncope Has provider been notified: No Attending physician on discharge: Caleb Melendez Discharging clinician: Caleb Melendez DS: Diagnosis Discharge Diagnosis (1) Subdural hematoma: Status: Acute DS: Summary Hospital Course Hospital Course: hpi:69M PMH SVT status post ablation 06/2024, prostate CA, hypertension, hyperlipidemia, depression, intracranial hemorrhage 1995 presented with syncope. Patient is a vague historian but reports that on day of presentation he was waiting in line at [employer] and started to feel nauseous and warm. He has started to go outside to throw up and pushes and then fell on sidewalk. Denies any trauma. He is unclear whether he completely lost consciousness. Woke up right away denies any incontinence. He states it feels similar to previous SVT episodes. Reports vague chest tightness. In ED EKG unremarkable, troponin nega tive, CTA chest and head CT negative. Hospital course: 69-year-old male with past medical history significant for SVT status post ablation on 06/2024, ICH prostate cancer and hypertension who presented to the ED after syncopal episode. In the ED patient presented with chest pain requiring sublingual nitroglycerin with improvement of symptoms. CTA with no findings for PE or pulmonary findings, CT head with no findings. Dizziness: Etiology unclear but orthostasis negative, CTA head and negative, initial MRI showed question of small subdural hematomas. Checked with the patient and his daughter ligia: Patient seems like have symptoms chronically. Seen by Neurology and EEG was done which was abnormal-so started on Keppra Patient given IV fluid, started on Keppra, PT evaluation was done: With the above supportive care patient seems to be improved , going to the rehab. Further management outpatient. Consider outpatient neurology evaluation. B12 deficiency: Added B12 IM shots.will need 1000mcg q weekly for 3 days ,then q monthly Mild rhabdomyolysis improved with the hydration. plan: Dizziness versus encephalopathy multifactorial: Decreased p.o. intake, question of seizure, also possible subdural hematomas . Patient seems to be improving with supportive care hydration, also started on seizure medications, CT scan also repeated-does show gross hematoma currently. Avoid but blood thinners. orthostasis negative. Records seems fine, EEG abnormal-already started on Keppra. Follow-up out patiently with PCP, consider outpatient neurology evaluation. B12 deficiency: Patient will need 1000mcg q weekly for 3 days ,then q monthly. Above management discussed with the patient detail length he understand and in agreement with the above plan, time spent 50 minutes. Time Attestation Total time managing care of this patient today: 50 mintues. Discharge Coordination Time (in mins): 50 min Quality: Safe Use of Opioids Does Pt have an Active Cancer Diagnosis on the Problem List?: No Quality: Stroke Does the patient have a stroke diagnosis?: No Physical Exam Vital Signs: Vital Signs: Last Vital Signs Temp 97.6 F 01/06/25 08:00 Pulse 83 01/06/25 08:25 Resp 20 01/06/25 08:00 BP 116/69 01/06/25 08:25 Pulse Ox 96 01/06/25 08:00 O2 Del Method Room Air 01/06/25 08:00 BMI result Body Mass Index 29.4 DS: Data Imaging Chest x-ray: Radiologist's impression: ITS Impressions ct head 01/04/25: IMPRESSION: 1. No acute intracranial findings. Specifically, no CT evidence of subdural hematoma. Head CT 12/30/24 10:42 IMPRESSION: No acute intracranial abnormality. mri: IMPRESSION: 1. Possible thin subdural hematomas in frontal regions, new from recent CT. 2. No acute infarct. eeg: This awake and sleep EEG is considered within normal limits with the exception of rare sharp transients in the left temporal region suggestive of a minimal cerebral irritability in the left temporal region. These findings are not developed well enough to be diagnostic for a seizure disorder. Clinical correlation is suggested. echo: Conclusions: - The left ventricular systolic function is normal. The calculated ejection fraction is 65% by biplane method. - No obvious valvular pathology seen on this study. Findings Left Ventricle Normal left ventricular cavity size. There is mildly increased left ventricular wall thickness. The left ventricular systolic function is normal. The calculated ejection fraction is 65% by biplane method. There is no evidence of regional wall motion abnormalities. Diastolic function is normal for age. Right Ventricle Normal right ventricular cavity size and systolic function. Atria Both atria are normal in size. Aortic Valve There is a normal trileaflet aortic valve. There is no aortic valve stenosis. There is no aortic valve regurgitation. Mitral Valve The mitral valve appears normal. There is trace mitral valve regurgitation. There is no mitral valve stenosis. Pulmonic Valve The pulmonic valve is likely normal. Tricuspid Valve Normal tricuspid valve structure. There is mild tricuspid valve regurgitation. There is no evidence of pulmonary hypertension. Great Vessels The asc aorta is normal in size. Venous The inferior vena cava is normal in size and collapses greater than 50% with inspiration. Pericardium/Pleural There is no evidence of pericardial effusion. Prior Study Comparison No significant change compared to prior study dated: 11/06/2022. Recommendations, Care & Conclusions No obvious valvular pathology seen on this study. Discharge Plan Discharge Anticipated Discharge Date/Time: 01/06/25 11:14 Patient Disposition: Home, Self-Care Discharge Diagnosis: possible seizure ,b12 deficiency Referrals: [facility] [Outside] - 1 Week Shu Cervantes MD [Primary Care Provider, Internal Medicine] - 1 Week Discharge Medications: New levetiracetam 500 mg Tablet 500 mg PO BID Qty: 180 0RF cyanocobalamin (vitamin B-12) 1,000 mcg/mL Solution 1,000 mcg IM DAILY Qty: 1 0RF Continued cetirizine 10 mg tablet 10 mg PO DAILY PRN (Reason: allergies) Qty: 30 1RF naproxen 500 mg tablet 500 mg PO BID PRN (Reason: pain) Qty: 30 0RF gabapentin 300 mg capsule 300 mg PO BID Qty: 60 3RF atorvastatin 40 mg tablet 40 mg PO DAILY Qty: 30 1RF metoprolol tartrate 25 mg tablet 25 mg PO DAILY Discharge Orders: Discharge Order (Routine); Ordered 01/06/25 Ordered By: Caleb Melendez Diet: Advance to usual diet Activity on Discharge: As tolerated Stand Alone Forms: Patient Portal Discharge page Print Language: [place] Care Plan Goals: Dizziness versus encephalopathy multifactorial: Decreased p.o. intake, question of seizure, also possible subdural hematomas . Patient seems to be improving with supportive care hydration, also started on seizure medications, CT scan also repeated-does show gross hematoma currently. orthostasis negative. Records seems fine, EEG abnormal-already started on Keppra. Follow-up out patiently with PCP, consider outpatient neurology evaluation. B12 deficiency: Patient will need 1000mcg q weekly for 3 days ,then q monthly. Health Concerns: as above. Plan of Treatment: as above. Assessment: as above. Discharge Date/Time: 01/06/25 14:11
[2025-01-06 11:54] VITALS: BP 107/57; PULSE 69; RESP 18; TEMP 36.2; O2SAT 96
== END 2025-01-06 14:11 | disposition home or self-care (01) | DRG 100 ==
LOC: HO.ED 23:39 → HO.EDOVER 23:47 → HO.IMC 12-30 00:48
PROVIDERS: Nurse Practitioner; Student in an Organized Health Care Education/Training Program; Admitting Provider Internal Medicine; Emergency Provider Emergency Medicine; PCP Internal Medicine; Visit Provider Internal Medicine
DX: G40.909 Epilepsy, unspecified, not intractable, without status epilepticus (principal); G92.8 Other toxic encephalopathy; S06.5X0A Traumatic subdural hemorrhage without loss of consciousness, initial encounter; I47.10 Supraventricular tachycardia, unspecified; M62.82 Rhabdomyolysis; F17.210 Nicotine dependence, cigarettes, uncomplicated; E78.5 Hyperlipidemia, unspecified; R53.81 Other malaise; W19.XXXA Unspecified fall, initial encounter; E53.8 Deficiency of other specified B group vitamins; Z20.822 Contact with and (suspected) exposure to COVID-19; Z71.6 Tobacco abuse counseling; Z79.899 Other long term (current) drug therapy
CPT/HCPCS: 36415; 70450; 70551; 71275; 80048; 80053; 80307; 81003; 82248; 82550; 82607; 82746; 83605; 83735; 83880; 84443; 84484; 85025; 85027; 85610; 87637; 93005; 93306; 95816; 97110; 97162; 99222; 99285; J1650; J3420; Q9957; Q9967

== ENCOUNTER → 2024-12-29 20:22 | Outpatient (BNV) | payer MEDICARE, MEDICAID, SELFPAY | PROVIDERS: Admitting Provider Internal Medicine; Emergency Provider Emergency Medicine; PCP Internal Medicine; Visit Provider Internal Medicine Cardiovascular Disease | DX: I45.10 Unspecified right bundle-branch block (principal) | CPT/HCPCS: 93010 ==

== ENCOUNTER → 2024-12-29 21:10 | Outpatient (BNV) | payer MEDICARE, MEDICAID, SELFPAY | PROVIDERS: PCP Internal Medicine; Visit Provider Radiology Diagnostic Radiology | DX: R06.02 Shortness of breath (principal); R07.9 Chest pain, unspecified; Z03.89 Encounter for observation for other suspected diseases and conditions ruled out | CPT/HCPCS: 70450; 71275 ==

== ENCOUNTER → 2024-12-29 23:27 | Outpatient (BNV) | payer MEDICARE, MEDICAID, SELFPAY | PROVIDERS: Admitting Provider Internal Medicine; Emergency Provider Emergency Medicine; PCP Internal Medicine; Visit Provider Psychiatry & Neurology Neurology | DX: G40.909 Epilepsy, unspecified, not intractable, without status epilepticus (principal) | CPT/HCPCS: 99222; 99232 ==

== ENCOUNTER → 2024-12-29 23:27 | Outpatient (BNV) | payer MEDICARE, MEDICAID, SELFPAY | PROVIDERS: Admitting Provider Internal Medicine; Emergency Provider Emergency Medicine; PCP Internal Medicine; Visit Provider Internal Medicine | DX: S06.5XAA Traumatic subdural hemorrhage with loss of consciousness status unknown, initial encounter (principal) | CPT/HCPCS: 99232 ==

== ENCOUNTER → 2024-12-30 10:42 | Outpatient (BNV) | payer MEDICARE, MEDICAID, SELFPAY | PROVIDERS: Admitting Provider Internal Medicine; Emergency Provider Emergency Medicine; PCP Internal Medicine; Visit Provider Radiology Diagnostic Radiology | DX: R55 Syncope and collapse (principal) | CPT/HCPCS: 70450 ==

== ENCOUNTER 2024-12-30 10:45 | Outpatient (BNV) | payer MEDICARE, MEDICAID, SELFPAY | END 2025-01-04 12:50 | PROVIDERS: Admitting Provider Internal Medicine; Emergency Provider Emergency Medicine; PCP Internal Medicine; Visit Provider Internal Medicine | DX: R00.0 Tachycardia, unspecified (principal); R42 Dizziness and giddiness | CPT/HCPCS: 93010 ==

== ENCOUNTER 2024-12-30 10:45 | Outpatient (BNV) | payer MEDICARE, MEDICAID, SELFPAY | END 2024-12-30 15:30 | PROVIDERS: Admitting Provider Internal Medicine; Emergency Provider Emergency Medicine; PCP Internal Medicine; Visit Provider Psychiatry & Neurology Neurology | DX: G40.909 Epilepsy, unspecified, not intractable, without status epilepticus (principal) | CPT/HCPCS: 95819 ==

== ENCOUNTER 2024-12-30 10:45 | Outpatient (BNV) | payer MEDICARE, MEDICAID, SELFPAY | END 2025-01-05 07:00 | PROVIDERS: Admitting Provider Internal Medicine; Emergency Provider Emergency Medicine; PCP Internal Medicine; Visit Provider Internal Medicine | DX: I36.1 Nonrheumatic tricuspid (valve) insufficiency (principal) | CPT/HCPCS: 93306 ==

== ENCOUNTER 2024-12-30 10:45 | Outpatient (BNV) | payer MEDICARE, MEDICAID, SELFPAY | END 2025-01-04 13:42 | PROVIDERS: Admitting Provider Internal Medicine; Emergency Provider Emergency Medicine; PCP Internal Medicine; Visit Provider Radiology Vascular & Interventional Radiology | DX: R42 Dizziness and giddiness (principal) | CPT/HCPCS: 70450 ==

== ENCOUNTER → 2024-12-30 10:45 | Outpatient (BNV) | payer MEDICARE, MEDICAID, SELFPAY | PROVIDERS: Admitting Provider Internal Medicine; Emergency Provider Emergency Medicine; PCP Internal Medicine; Visit Provider Internal Medicine Cardiovascular Disease | DX: R55 Syncope and collapse (principal) | CPT/HCPCS: 99222 ==